=== PATIENT | female | born 1960 | race Caucasian/White ===

== ENCOUNTER 2018-02-27 21:42 | Emergency (ER) | payer OTHER, SELFPAY ==
[2018-02-27 21:53] VITALS: BP 107/67; PULSE 88; RESP 20; TEMP 36.1; O2SAT 98; BMI 35.7
--- NOTE | 2018-02-27 23:26 | ED_ITS ---
HPI - Nausea/Vomiting/Diarrhea General Chief complaint: Nausea/Vomiting/Diarrhea Stated complaint: vomiting Time Seen by Provider: 02/27/18 22:48 Source: patient Mode of arrival: ambulatory Limitations: no limitations History of Present Illness HPI Narrative: 57-year-old female, nonsmoker presents with a chief complaint nausea vomiting over the course of the day. She's had no fever, but admits to full body aches. She's had no change in bowel habits and denies dysuria, frequency, or hematuria. She denies headache, sorethroat, chest pain or SOB. She denies bad food, recent travel or antibiotics, but her had similar symptoms a few days ago MD complaint: nausea and vomiting Onset (ago): hour(s) Description of Vomiting: watery Description of Diarrhea: none Associated Abdominal Pain: Yes Location of pain: diffuse Severity: mild Quality: cramping Relieving factors: none Exacerbating factors: none Context: sick contacts Associated symptoms: myalgias Related Data Home Medications Medication Instructions Recorded Confirmed ASCORBIC ACID (VITAMIN C) 1,000 mg PO Q DAY #0 07/14/11 cholecalciferol (vitamin D3) 2,000 unit PO #0 cap 12/16/15 [Vitamin D3] cyanocobalamin (vitamin B-12) 2,500 #0 06/08/16 Previous Rx's Medication Instructions Recorded acyclovir 800 mg tablet 800 mg PO Q DAY #90 tab 07/03/17 simvastatin 10 mg tablet 10 mg PO HS #90 tab 09/25/17 zolpidem 10 mg tablet 10 mg PO BEDTIME PRN #30 tab 11/26/17 lisinopril 20 mg tablet 20 mg PO QDAY #90 tab 12/26/17 ondansetron 4 mg PO TID-QID PRN #10 tab 02/28/18 Allergies Allergy/AdvReac Type Severity Reaction Status Date / Time acetaminophen [From TYLOX] Allergy Severe itchy,rash,trouble Verified 02/27/18 21:53 breathing caffeine [From CAFERGOT] Allergy Severe paralyzed, Verified 02/27/18 21:53 numb from hips down codeine [CODEINE] Allergy Unknown hives Verified 02/27/18 21:53 hydrocodone [HYDROCODONE] Allergy Unknown hives Verified 02/27/18 21:53 prochlorperazine Allergy Unknown hallucinati Verified 02/27/18 21:53 [From COMPAZINE] ons sumatriptan [From IMITREX] Allergy Unknown rash and Verified 02/27/18 21:53 swelling ergotamine [ERGOTAMINE] AdvReac Unknown paralyzining Verified 02/27/18 21:53 feeling from the waste down oxycodone [From PERCOCET] AdvReac Unknown ulcers Verified 02/27/18 21:53 Percodan Allergy Severe Trouble Uncoded 02/27/18 21:53 Breathing, Rash Blue Dye Allergy Mild Hives Uncoded 02/27/18 21:53 dhe-45 Allergy Unknown rash at Uncoded 02/27/18 21:53 injection site aspirn AdvReac Unknown ulcers Uncoded 02/27/18 21:53 trazadone AdvReac Unknown hives Uncoded 02/27/18 21:53 Review of Systems Review of Systems All systems reviewed & are unremarkable except as noted in HPI and below Constitutional Reports chills, Denies fever(s), Denies lethargy and Denies weakness Eyes Denies change in vision, Denies eye discharge, Denies irritation and Denies loss of vision ENT Ears, Nose, Mouth, and Throat: Denies change in voice, Denies neck pain and Denies sore throat Cardiovascular Denies chest pain, Denies irregular heart rhythm, Denies lightheadedness, Denies palpitations, Denies dyspnea, Denies dyspnea on exertion and Denies orthopnea Respiratory Denies cough, Denies dyspnea, Denies dyspnea on exertion and Denies wheezing Gastrointestinal Gastrointestinal: Reports abdominal pain, Denies change in bowel habits, Denies diarrhea, Reports nausea and Reports vomiting Genitourinary Denies hematuria, Denies flank pain, Denies urinary incontinence and Denies urinary urgency Musculoskeletal Reports myalgias and Denies neck pain Integumentary/Breasts Denies pruritus, Denies erythema, Denies rash and Denies wounds Neurologic Denies confusion, Denies loss of vision and Denies weakness Psychiatric Denies anxiety, Denies confusion, Denies depression, Denies homicidal ideation and Denies suicidal ideation Endocrine Denies palpitations Hematologic/Lymphatic Denies easy bruising Allergic/Immunologic Denies wheezing PFSH Surgical History History of tonsillectomy Status post laparoscopic cholecystectomy Status post tubal ligation Family History Brother Age: 62 Hypertension Hyperlipidemia Father Hypertension Hyperlipidemia Social History Smoking Status: Never smoker Exam Narrative Exam Narrative: GENERAL: 57-year-old female in mild distress, clearly not feeling well, bundled in blankets HEAD: Atraumatic. Normocephalic. No temporal or scalp tenderness. EYES: Pupils equal round and reactive. Extraocular motions intact. No scleral icterus. No injection or drainage. ENT: Nose without bleeding, purulent drainage or septal hematoma. Throat without erythema, tonsillar hypertrophy or exudate. Uvula midline. Airway patent. NECK: Trachea midline. No JVD or lymphadenopathy. Supple, nontender, no meningeal signs. CARDIOVASCULAR: Regular rate and rhythm without murmurs, gallops, or rubs. RESPIRATORY: Clear to auscultation. Breath sounds equal bilaterally. No wheezes , rales, or rhonchi. GASTROINTESTINAL: Abdomen soft, non-tender, nondistended. Increased bowel tones No hepato-splenomegaly, or palpable masses. No guarding. EXTREMITIES: No clubbing, cyanosis, or edema. No joint tenderness, effusion, or edema noted. BACK: Nontender without deformity or crepitance. No flank tenderness. NEURO: AOx3. SKIN: No rash or erythema. Initial Vital Signs Initial Vital Signs: Vital Signs Temperature 97.0 F L 02/27/18 21:53 Pulse Rate 88 02/27/18 21:53 Respiratory Rate 20 02/27/18 21:53 Blood Pressure 107/67 02/27/18 21:53 Pulse Oximetry 98 02/27/18 21:53 Course Orders Ordered: ED Orders 02/27/18 23:30 Complete Blood Count AUTO DIFF Stat Comprehensive Metabolic Panel Stat 02/27/18 23:50 Influenza A and B by PCR Rapid Stat Sodium Chloride (Normal Saline 0.9%) 1,000 mls @ 1,000 mls/hr IV BOLUS ONE Stop: 02/28/18 02:03 Last Admin: 02/28/18 01:18 Dose: 1,000 mls/hr Discontinued Medications Sodium Chloride (Normal Saline 0.9%) 1,000 mls @ 1,000 mls/hr IV BOLUS ONE Stop: 02/28/18 00:13 Last Infusion: 02/28/18 01:20 Dose: 0 mls/hr Admin: 02/27/18 23:56 Dose: 1,000 mls/hr Ketorolac Tromethamine (Toradol) 15 mg IV NOW ONE Stop: 02/28/18 01:05 Last Admin: 02/28/18 01:18 Dose: 15 mg Ondansetron HCl (Zofran) 4 mg IV NOW ONE Stop: 02/27/18 23:15 Last Admin: 02/28/18 00:18 Dose: 4 mg Vital Signs - 8 hr 02/27/18 21:53 Temperature 97.0 F L Pulse Rate 88 Respiratory Rate 20 Blood Pressure 107/67 Pulse Oximetry 98 MDM - Nausea/Vomiting/Diarrhea Differential Diagnosis Likely traveler's diarrhea, food poisoning, gastroenteritis, drug-induced nausea and vomiting and dehydration Medical Records Attestation: I reviewed the patient's medical records. Lab Data Attestation: I reviewed the patient's lab results. Result diagrams: 02/27/18 23:30 02/27/18 23:30 Lab Results 02/27/18 02/27/18 02/27/18 Range/Units 23:30 23:30 23:50 WBC 6.9 (4.5-11.0) X10^3/uL RBC 4.23 (4.0-5.2) X10^6/uL Hgb 14.3 (12.0-16.0) g/dL Hct 40.3 (36-46) % MCV 95.3 (80-100) fL MCH 33.8 (26-34) PG MCHC 35.5 (30-36) % RDW 12.6 (11.6-14.8) % Plt Count 159 (150-400) X10^3/uL Neut % (Auto) 90.8 H (50-75) % Lymph % (Auto) 3.5 L (25-40) % [place] % (Auto) 4.4 (3-14) % Eos % (Auto) 1.1 L (2-4) % Baso % (Auto) 0.2 (0-2) % Neut # (Auto) 6200 (7294-0708) /uL Sodium 138 (137-145) mmol/L Potassium 3.8 (3.4-5.1) mmol/L Chloride 102 (98-107) mmol/L Carbon Dioxide 26 (22-32) mmol/L BUN 25 H (7-17) mg/dL Creatinine 0.80 (0.52-1.04) mg/dL Estimated GFR > 60.0 (>60) mL/min BUN/Creatinine Ratio 31.3 H (6-22) Glucose 156 H (70-100) mg/dL Calcium 8.9 (8.4-10.2) mg/dL Total Bilirubin 0.6 (0.2-1.3) mg/dL AST 57 H (14-36) IU/L ALT 69 H (9-52) IU/L Alkaline Phosphatase 91 (38-126) U/L Total Protein 7.4 (6.3-8.2) g/dL Albumin 4.0 (3.5-5.0) g/dL Globulin 3.4 (1.7-4.1) g/dL Albumin/Globulin Ratio 1.2 (1.0-2.8) Influenza A & B (PCR) Negative (Negative) Discharge Plan Departure Patient Disposition: Home Clinical Impression: Gastroenteritis Instructions: DI for Viral Gastroenteritis -- Adult Activity Restrictions/Additional Instructions: 1. Drink plenty of fluids with frequent small sips. 2. For the next 24 hours a clear liquid diet is advised. After that please employ a brat diet which would include bananas, rice, apples, toast. 3. Please take medications as directed. [facility] [place] 4. Please follow-up with your doctor in the next 1-2 days. Call the office for an appointment. 5. Please return to the emergency Department for any worsening or persistent symptoms, such as increasing pain or fever. Prescriptions: New ondansetron 4 mg tablet,disintegrating 4 mg PO TID-QID PRN (Reason: nausea and vomiting) Qty: 10 RF: 0 No Action ASCORBIC ACID (VITAMIN C) 1,000 mg PO Q DAY Qty: 0 RF: 0 cholecalciferol (vitamin D3) [Vitamin D3] 2,000 UNIT capsule 2,000 unit PO Qty: 0 RF: 0 cyanocobalamin (vitamin B-12) 1,000 MCG tablet extended release 2,500 Qty: 0 RF: 0 acyclovir 800 mg tablet 800 mg PO Q DAY Qty: 90 RF: 3 simvastatin 10 mg tablet 10 mg PO HS Qty: 90 RF: 1 zolpidem 10 mg tablet 10 mg PO BEDTIME PRN (Reason: insomnia) Qty: 30 RF: 2 lisinopril 20 mg tablet 20 mg PO QDAY Qty: 90 RF: 1 Referrals: Wu Banks MD [Primary Care Provider] -
[2018-02-27 23:43] LABS: Add Manual Diff / Slide Review NO; Basophils Percent Auto 0.2 % (0-2); Eosinophils Percent Auto 1.1 % (2-4); Hematocrit 40.3 % (36-46); Hemoglobin 14.3 g/dL (12.0-16.0); Lymphocytes Percent Auto 3.5 % (25-40); Mean Corpuscular HGB Conc 35.5 % (30-36); Mean Corpuscular Hemoglobin 33.8 PG (26-34); Mean Corpuscular Volume 95.3 fL (80-100); Monocytes Percent Auto 4.4 % (3-14); Neutrophils Absolute Auto 6200 /uL (1500-7000); Neutrophils Percent Auto 90.8 % (50-75); Platelet Count 159 X10^3/uL (150-400); Red Blood Cell Count 4.23 X10^6/uL (4.0-5.2); Red Cell Distribution Width 12.6 % (11.6-14.8); White Blood Cell Count 6.9 X10^3/uL (4.5-11.0)
[2018-02-27 23:48] LABS: Alanine Aminotransferase 69 IU/L (9-52); Albumin Globulin Ratio 1.2 (1.0-2.8); Alkaline Phosphatase 91 U/L (38-126); Aspartate Aminotransferase 57 IU/L (14-36); BUN Creatinine Ratio 31.3 (6-22); Bilirubin Total 0.6 mg/dL (0.2-1.3); Blood Urea Nitrogen 25 mg/dL (7-17); Calcium 8.9 mg/dL (8.4-10.2); Carbon Dioxide 26 mmol/L (22-32); Chloride 102 mmol/L (98-107); Estimated Glomerular Filt Rate > 60.0 mL/min (>60); Globulin 3.4 g/dL (1.7-4.1); Glucose 156 mg/dL (70-100); HEMOLYSIS 16 (0-50); Potassium 3.8 mmol/L (3.4-5.1); Sodium 138 mmol/L (137-145); Total Protein 7.4 g/dL (6.3-8.2)
[2018-02-27] MEDS: SODIUM CHLORIDE 0.9% 1,000 ML 1000 ML IV (23:56)
[2018-02-28 00:11] LABS: Influenza A and B by PCR Rapid Negative (Negative)
[2018-02-28] MEDS: ONDANSETRON 4 MG/2 ML INJ IV (00:18)
[2018-02-28] MEDS: SODIUM CHLORIDE 0.9% 1,000 ML 1000 ML IV (01:18)
[2018-02-28] MEDS: KETOROLAC 60 MG/2 ML VIAL 15 MG IV (01:18)
[2018-02-28 01:53] VITALS: BP 104/70; PULSE 84; RESP 18; O2SAT 98
== END 2018-02-28 01:54 | disposition home or self-care (01) ==
PROVIDERS: Emergency Provider Emergency Medicine; PCP Family Medicine
DX: K52.9 Noninfective gastroenteritis and colitis, unspecified (principal)
CPT/HCPCS: 36415; 36591; 80053; 85025; 87400; 96361; 96374; 96375; 99283; 99284; J1885; J2405

== ENCOUNTER → 2018-04-27 09:56 | Outpatient (CLI) | payer OTHER, SELFPAY ==
[2018-04-27 10:24] LABS: BUN Creatinine Ratio 22.9 (6-22); Blood Urea Nitrogen 16 mg/dL (7-17); C-Reactive Protein Quant < 0.5 mg/dL (<1.0); Calcium 9.2 mg/dL (8.4-10.2); Carbon Dioxide 27 mmol/L (22-32); Chloride 100 mmol/L (98-107); Creatine Kinase 107 U/L (30-135); Estimated Glomerular Filt Rate > 60.0 mL/min (>60); Glucose 128 mg/dL (70-100); HEMOLYSIS < 15 (0-50); Potassium 4.3 mmol/L (3.4-5.1); Sodium 137 mmol/L (137-145)
[2018-04-27 11:07] LABS: TSH w/ Reflex to FT4 2.42 uIU/mL (0.47-4.68)
== END ==
PROVIDERS: Visit Provider Student in an Organized Health Care Education/Training Program
DX: M62.838 Other muscle spasm (principal); E03.9 Hypothyroidism, unspecified; E66.9 Obesity, unspecified; I10 Essential (primary) hypertension; R73.03 Prediabetes; E55.9 Vitamin D deficiency, unspecified
CPT/HCPCS: 36415; 80048; 82306; 82550; 83036; 83735; 84443; 86140

== ENCOUNTER 2018-10-23 03:48 | Emergency (ER) | payer OTHER, SELFPAY ==
[2018-10-23] VITALS (7 sets, daily range): BP systolic 117–154; BP diastolic 61–94; PULSE 67–84; RESP 13–20; TEMP 36.5; O2SAT 97–100; BMI 36.6
--- NOTE | 2018-10-23 03:49 | DI.RAD.S_ITS ---
PROCEDURE: XR CHEST 1V INDICATIONS: Chest pain TECHNIQUE: One view of the chest was acquired. COMPARISON: None. FINDINGS: Surgical changes and devices: None. Lungs and pleura: Lungs are clear. No pleural effusions or pneumothorax. Mediastinum: Mediastinal contours appear normal. Heart size is normal. Bones and chest wall: No suspicious bony lesions. Overlying soft tissues appear unremarkable. IMPRESSION: Chest without acute cardiopulmonary abnormalities. No significant discrepancy with preliminary assessment/report by the emergency department staff. Dictated by: Chapo Chapman M.D. on 10/23/2018 at 9:38 Approved by: Chapo Chapman M.D. on 10/23/2018 at 9:39
--- NOTE | 2018-10-23 03:50 | ED_ITS ---
HPI - General Adult General Chief complaint: Chest Pain Stated complaint: Chest pain Time Seen by Provider: 10/23/18 03:48 Source: patient and EMS Mode of arrival: EMS Limitations: no limitations History of Present Illness HPI narrative: Patient is a 58-year-old female here for evaluation of left-sided chest pain. Patient stated that it started approximately 1 point hours prior to arrival here in the emergency department. States that is on the left side of her chest under her left arm. Potentially is worse with palpation. Not worse with movement. She states it did wake her from her sleep. Has never had a nything like this before. No fevers. No coughing. Has not tried anything for the symptoms prior to arrival Related Data Home Medications Medication Instructions Recorded Confirmed ASCORBIC ACID (VITAMIN C) 1,000 mg PO Q DAY #0 07/14/11 cholecalciferol (vitamin D3) 2,000 unit PO #0 cap 12/16/15 [Vitamin D3] cyanocobalamin (vitamin B-12) 2,500 #0 06/08/16 Previous Rx's Medication Instructions Recorded simvastatin 10 mg tablet 10 mg PO HS #90 tab 04/25/18 zolpidem 10 mg tablet 10 mg PO BEDTIME PRN #30 tab 04/25/18 lisinopril 20 mg tablet 20 mg PO QDAY #90 tab 07/12/18 acyclovir 800 mg tablet 800 mg PO DAILY #90 tab 07/17/18 Allergies Allergy/AdvReac Type Severity Reaction Status Date / Time acetaminophen [From TYLOX] Allergy Severe itchy,rash,trouble Verified 04/25/18 10:59 breathing caffeine [From CAFERGOT] Allergy Severe paralyzed, Verified 04/25/18 10:59 numb from hips down codeine [CODEINE] Allergy Unknown hives Verified 04/25/18 10:59 hydrocodone [HYDROCODONE] Allergy Unknown hives Verified 04/25/18 10:59 prochlorperazine Allergy Unknown hallucinati Verified 04/25/18 10:59 [From COMPAZINE] ons sumatriptan [From IMITREX] Allergy Unknown rash and Verified 04/25/18 10:59 swelling ergotamine [ERGOTAMINE] AdvReac Unknown paralyzining Verified 04/25/18 10:59 feeling from the waste down oxycodone [From PERCOCET] AdvReac Unknown ulcers Verified 04/25/18 10:59 Percodan Allergy Severe Trouble Uncoded 02/27/18 21:53 Breathing, Rash Blue Dye Allergy Mild Hives Uncoded 02/27/18 21:53 dhe-45 Allergy Unknown rash at Uncoded 02/27/18 21:53 injection site aspirn AdvReac Unknown ulcers Uncoded 02/27/18 21:53 trazadone AdvReac Unknown hives Uncoded 02/27/18 21:53 Review of Systems Constitutional Denies fever(s) and Denies headache(s) ENT Ears, Nose, Mouth, and Throat: Denies headache(s) Cardiovascular Reports chest pain, Denies edema, Denies palpitations and Denies dyspnea Respiratory Denies cough and Denies dyspnea Gastrointestinal Gastrointestinal: Denies abdominal pain, Denies nausea and Denies vomiting Musculoskeletal Denies myalgias and Denies arthralgias Integumentary/Breasts Denies rash Neurologic Denies confusion and Denies headache(s) Psychiatric Denies confusion Endocrine Denies palpitations Hematologic/Lymphatic Denies easy bleeding and Denies easy bruising COUNTS INCLUDE 234 BEDS AT THE [facility] Medical History Carpal tunnel syndrome (Chronic ~2004) Fibroids (Chronic ~2006) Hypertension (Chronic ~1999) Osteoarthritis (Chronic ~2006) Shoulder pain (Chronic ~2012) Skin rash (Chronic ~2005) Chicken pox (Resolved ~1963) Herpes (Resolved ~1997) Migraines (Resolved) Ovarian cyst (Resolved ~2006) Surgical History (Updated 04/24/18 @ 21:25 by Kristin Alejandro) Anesthesia (Resolved) History of liver biopsy (Resolved ~2001) History of release of tendon (Resolved ~1989) History of surgery (Resolved ~2003) History of tonsillectomy (~1963) Status post laparoscopic cholecystectomy (~1986) Status post tubal ligation (~2006) Family History Brother Age: 63 Hypertension Hyperlipidemia Father Hypertension Hyperlipidemia Brother Cancer Brother Cancer Mother No problems noted. Social History Smoking Status: Never smoker Family History Brother Age: 63 Hypertension Hyperlipidemia Father Hypertension Hyperlipidemia Brother Cancer Brother Cancer Mother No problems noted. Social History Smoking Status: Never smoker Exam Initial Vital Signs Initial Vital Signs: Vital Signs Temperature 97.7 F 10/23/18 03:45 Pulse Rate 74 10/23/18 03:45 Respiratory Rate 20 10/23/18 03:45 Blood Pressure 152/90 H 10/23/18 03:45 Pulse Oximetry 100 10/23/18 03:45 Const General: cooperative, well developed, well groomed and No acute distress Orientation: alert, awake and oriented x3 HENMT Head: normal to inspection and normocephalic Chest Other: Somewhat reproducible symptoms left-sided chest wall mid axillary line Resp Effort & Inspection: normal respiratory effort Auscultation: clear to auscultation bilaterally Cardio Rate: regular rate Rhythm: regular rhythm Pulses: radial pulses present GI Inspection: non-distended Palpation: soft Skin Lesions: no lesions Rashes: no rashes Neuro General: alert and awake Cognition: normal cognition Speech: speech normal Extrem General: normal to inspection and capillary refill normal Psych Appearance: grossly normal and well kempt Scores GCS [place] coma scale eye opening: Spontaneous [place] coma scale verbal response: Orientated [place] coma scale motor response: Obey commands [place] coma scale total score: 15 HEART Score Heart Score history: Slightly Suspicious Heart Score EKG: Normal Heart Score Age: 45-64 years old Heart Score risk factors: 1-2 risk factors Heart Score troponin: < or = to normal limit Heart Score Total: 2 Course Orders Ordered: ED Orders 10/23/18 03:49 XR chest 1V Stat EKG-12 Lead Stat 10/23/18 03:55 Complete Blood Count AUTO DIFF Stat Comprehensive Metabolic Panel Stat Lipase Stat Partial Thromboplastin Time Stat Prothrombin Time INR Stat Troponin I Stat 10/23/18 06:23 Troponin I Stat Nitroglycerin (Nitrostat) 0.4 mg SL [id number] PRN PRN Reason: Chest Pain Last Admin: 10/23/18 05:07 Dose: 0.4 mg Admin: 10/23/18 04:53 Dose: 0.4 mg Discontinued Medications Ibuprofen (Advil) 800 mg PO NOW ONE Stop: 10/23/18 05:07 Last Admin: 10/23/18 05:09 Dose: 800 mg Lorazepam (Ativan) 1 mg IV NOW ONE Stop: 10/23/18 03:51 Last Admin: 10/23/18 04:55 Dose: Not Given Morphine Sulfate (Morphine) 4 mg IV NOW ONE Stop: 10/23/18 06:03 Last Admin: 10/23/18 06:07 Dose: 4 mg Vital Signs - 8 hr 10/23/18 03:45 10/23/18 03:54 10/23/18 04:53 Temperature 97.7 F 97.7 F Pulse Rate 74 74 72 Respiratory Rate 20 20 Blood Pressure 152/90 H 128/64 Blood Pressure [Left Arm] 152/90 H Pulse Oximetry 100 100 10/23/18 05:07 10/23/18 05:58 Temperature Pulse Rate 84 67 Respiratory Rate 13 Blood Pressure 121/67 Blood Pressure [Left Arm] 154/94 H Pulse Oximetry 100 Medical Decision Making Lab Data Lab results reviewed: Yes I reviewed the patient's lab results. Result diagrams: 10/23/18 03:55 10/23/18 03:55 Lab Results 10/23/18 10/23/18 10/23/18 Range/Units 03:55 03:55 03:55 WBC 4.8 (4.5-11.0) X10^3/uL RBC 3.98 L (4.0-5.2) X10^6/uL Hgb 13.4 (12.0-16.0) g/dL Hct 38.0 (36-46) % MCV 95.6 (80-100) fL MCH 33.8 (26-34) PG MCHC 35.4 (30-36) % RDW 12.8 (11.6-14.8) % Plt Count 123 L (150-400) X10^3/uL Neut % (Auto) 43.2 L (50-75) % Lymph % (Auto) 39.7 (25-40) % [place] % (Auto) 10.9 (3-14) % Eos % (Auto) 5.3 H (2-4) % Baso % (Auto) 0.9 (0-2) % Neut # (Auto) 2100 (4991-5151) /uL Lymph # (Auto) 1900 (1642-3334) /uL [place] # (Auto) 500 (0-900) /uL Eos # (Auto) 300 (0-450) /uL Baso # (Auto) 0 (0-100) /uL PT 12.3 (10.1-12.7) SECONDS INR 1.1 (0.9-1.3) APTT 34 (26.4-36.2) SECONDS Sodium 136 L (137-145) mmol/L Potassium 4.0 (3.4-5.1) mmol/L Chloride 102 (98-107) mmol/L Carbon Dioxide 23 (22-32) mmol/L BUN 18 H (7-17) mg/dL Creatinine 0.60 (0.52-1.04) mg/dL Estimated GFR > 60.0 (>60) mL/min BUN/Creatinine Ratio 30.0 H (6-22) Glucose 178 H (70-100) mg/dL Calcium 9.3 (8.4-10.2) mg/dL Total Bilirubin 0.5 (0.2-1.3) mg/dL AST 57 H (14-36) IU/L ALT 86 H (9-52) IU/L Alkaline Phosphatase 179 H (38-126) U/L Troponin I < 0.012 (0.01-0.034) ng/mL Total Protein 7.7 (6.3-8.2) g/dL Albumin 4.0 (3.5-5.0) g/dL Globulin 3.7 (1.7-4.1) g/dL Albumin/Globulin Ratio 1.1 (1.0-2.8) Lipase 100 (23-300) U/L // Range/Units 06:23 WBC (4.5-11.0) X10^3/uL RBC (4.0-5.2) X10^6/uL Hgb (12.0-16.0) g/dL Hct (36-46) % MCV (80-100) fL MCH (26-34) PG MCHC (30-36) % RDW (11.6-14.8) % Plt Count (150-400) X10^3/uL Neut % (Auto) (50-75) % Lymph % (Auto) (25-40) % [place] % (Auto) (3-14) % Eos % (Auto) (2-4) % Baso % (Auto) (0-2) % Neut # (Auto) (4261-4426) /uL Lymph # (Auto) (9469-1684) /uL [place] # (Auto) (0-900) /uL Eos # (Auto) (0-450) /uL Baso # (Auto) (0-100) /uL PT (10.1-12.7) SECONDS INR (0.9-1.3) APTT (26.4-36.2) SECONDS Sodium (137-145) mmol/L Potassium (3.4-5.1) mmol/L Chloride (98-107) mmol/L Carbon Dioxide (22-32) mmol/L BUN (7-17) mg/dL Creatinine (0.52-1.04) mg/dL Estimated GFR (>60) mL/min BUN/Creatinine Ratio (6-22) Glucose (70-100) mg/dL Calcium (8.4-10.2) mg/dL Total Bilirubin (0.2-1.3) mg/dL AST (14-36) IU/L ALT (9-52) IU/L Alkaline Phosphatase (38-126) U/L Troponin I < 0.012 (0.01-0.034) ng/mL Total Protein (6.3-8.2) g/dL Albumin (3.5-5.0) g/dL Globulin (1.7-4.1) g/dL Albumin/Globulin Ratio (1.0-2.8) Lipase (23-300) U/L Imaging Data Chest x-ray: Attestation: I personally reviewed and interpreted this imaging study as follows: My impression: No pneumonia, normal size heart, no pneumothorax ECG Data Attestation: I personally reviewed and interpreted this ECG as follows: Prior ECG tracings: not available for review Interpretation: Sinus rhythm Ventricular rate is 71 Normal axis Normal QRS Normal QTC No ST T wave changes MDM Narrative Medical decision making narrative: Heart score 2. EKG is unremarkable. Chest x- ray is unremarkable. Low suspicion for ACS. Low suspicion for PE. Patient does think was anxiety. Could also be intercostal muscle strain. We discussed the fact that we do not have an exact etiology of her symptoms. Patient expressed understanding of this. She was given return precautions and follow-up instructions. She expressed understanding and agreement with plan. Discharge Plan Departure Patient Disposition: Home Clinical Impression: Atypical chest pain Instructions: DI for Atypical Chest Pain Activity Restrictions/Additional Instructions: Continue all of your medications as directed. Contact your primary provider for follow-up and to discuss the stress test. Return to the emergency department for any new or worsening symptoms Prescriptions: No Action ASCORBIC ACID (VITAMIN C) 1,000 mg PO Q DAY Qty: 0 RF: 0 cholecalciferol (vitamin D3) [Vitamin D3] 2,000 UNIT capsule 2,000 unit PO Qty: 0 RF: 0 cyanocobalamin (vitamin B-12) 1,000 MCG tablet extended release 2,500 Qty: 0 RF: 0 lisinopril 20 mg tablet 20 mg PO QDAY Qty: 90 RF: 3 acyclovir 800 mg tablet 800 mg PO DAILY Qty: 90 RF: 3 zolpidem 10 mg tablet 10 mg PO BEDTIME PRN (Reason: insomnia) Qty: 30 RF: 5 simvastatin 10 mg tablet 10 mg PO HS Qty: 90 RF: 0
[2018-10-23 04:09] LABS: Add Manual Diff / Slide Review NO; Basophils Absolute Auto 0 /uL (0-100); Basophils Percent Auto 0.9 % (0-2); Eosinophils Absolute Auto 300 /uL (0-450); Eosinophils Percent Auto 5.3 % (2-4); Hemoglobin 13.4 g/dL (12.0-16.0); Lymphocytes Absolute Auto 1900 /uL (1100-4500); Lymphocytes Percent Auto 39.7 % (25-40); Mean Corpuscular HGB Conc 35.4 % (30-36); Mean Corpuscular Hemoglobin 33.8 PG (26-34); Mean Corpuscular Volume 95.6 fL (80-100); Monocytes Absolute Auto 500 /uL (0-900); Monocytes Percent Auto 10.9 % (3-14); Neutrophils Absolute Auto 2100 /uL (1500-7000); Neutrophils Percent Auto 43.2 % (50-75); Platelet Count 123 X10^3/uL (150-400); Red Blood Cell Count 3.98 X10^6/uL (4.0-5.2); Red Cell Distribution Width 12.8 % (11.6-14.8); White Blood Cell Count 4.8 X10^3/uL (4.5-11.0)
[2018-10-23 04:15] LABS: INR 1.1 (0.9-1.3); Prothrombin Time 12.3 SECONDS (10.1-12.7)
[2018-10-23 04:18] LABS: PTT Partial Thromboplastin Tim 34 SECONDS (26.4-36.2)
[2018-10-23 04:19] LABS: Alanine Aminotransferase 86 IU/L (9-52); Albumin Globulin Ratio 1.1 (1.0-2.8); Alkaline Phosphatase 179 U/L (38-126); Aspartate Aminotransferase 57 IU/L (14-36); Bilirubin Total 0.5 mg/dL (0.2-1.3); Blood Urea Nitrogen 18 mg/dL (7-17); Calcium 9.3 mg/dL (8.4-10.2); Carbon Dioxide 23 mmol/L (22-32); Chloride 102 mmol/L (98-107); Estimated Glomerular Filt Rate > 60.0 mL/min (>60); Globulin 3.7 g/dL (1.7-4.1); Glucose 178 mg/dL (70-100); HEMOLYSIS < 15 (0-50); Lipase 100 U/L (23-300); Sodium 136 mmol/L (137-145); Total Protein 7.7 g/dL (6.3-8.2)
[2018-10-23 04:31] LABS: Troponin I < 0.012 ng/mL (0.01-0.034)
[2018-10-23] MEDS: NITROGLYCERIN 0.4 MG SL TAB SL ×2 (04:53→05:07)
[2018-10-23] MEDS: IBUPROFEN 400 MG TABLET 800 MG PO (05:09)
[2018-10-23] MEDS: MORPHINE 4 MG/ML INJ IV (06:07)
[2018-10-23 06:49] LABS: Troponin I < 0.012 ng/mL (0.01-0.034)
== END 2018-10-23 07:10 | disposition home or self-care (01) ==
PROVIDERS: Emergency Provider Emergency Medicine
DX: R07.89 Other chest pain (principal)
CPT/HCPCS: 36415; 36591; 71045; 80053; 83690; 84484; 85025; 85610; 85730; 93005; 96374; 99283; 99285; J2270

== ENCOUNTER 2019-01-03 22:12 | Emergency (ER) | payer OTHER, SELFPAY ==
[2019-01-03 22:22] VITALS: BP 166/131; PULSE 116; RESP 17; TEMP 36.7; O2SAT 97; BMI 37.4
--- NOTE | 2019-01-03 22:35 | ED.EXTPRO ---
HPI - Extremity Problem General Chief complaint: Extremity Problem,Nontraumatic Stated complaint: HORRIBLE CRAMPS ALL OVER HER BODY Time Seen by Provider: 01/03/19 22:28 Source: patient Mode of arrival: Wheelchair Limitations: no limitations History of Present Illness HPI Narrative: 58-year-old female here for evaluation of bilateral lower leg cramps. She has had these in the past. States she has talked with her primary doctor in the past. Has had ?labs ?drawn in the past which she states was come back normal. There has been no discussion about her seeing any specialist about the symptoms. States that earlier today she started having cramping especially her left lower extremity but also is having and a right. Has tried stretching and walking at home without any improvement. Does take a multivitamin daily. Drinks water on a daily basis. Related Data Home Medications Medication Instructions Recorded Confirmed ASCORBIC ACID (VITAMIN C) 1,000 mg PO Q DAY #0 07/14/11 12/11/18 cholecalciferol (vitamin D3) 2,000 unit PO #0 cap 12/16/15 12/11/18 [Vitamin D3] cyanocobalamin (vitamin B-12) 2,500 #0 06/08/16 12/11/18 Previous Rx's Medication Instructions Recorded lisinopril 20 mg tablet 20 mg PO QDAY #90 tab 07/12/18 acyclovir 800 mg tablet 800 mg PO DAILY #90 tab 07/17/18 zolpidem 10 mg tablet 10 mg PO BEDTIME PRN #30 tab 11/13/18 verapamil 120 mg tablet,extended 120 mg PO QPM #30 tab 12/11/18 release cyclobenzaprine 10 mg PO TID PRN #14 tab 01/04/19 Allergies Allergy/AdvReac Type Severity Reaction Status Date / Time acetaminophen [From TYLOX] Allergy Severe itchy,rash,trouble Verified 01/03/19 22:22 breathing caffeine [From CAFERGOT] Allergy Severe paralyzed, Verified 01/03/19 22:22 numb from hips down codeine [CODEINE] Allergy Unknown hives Verified 01/03/19 22:22 hydrocodone [HYDROCODONE] Allergy Unknown hives Verified 01/03/19 22:22 prochlorperazine Allergy Unknown hallucinati Verified 01/03/19 22:22 [From COMPAZINE] ons sumatriptan [From IMITREX] Allergy Unknown rash and Verified 01/03/19 22:22 swelling ergotamine [ERGOTAMINE] AdvReac Unknown paralyzining Verified 01/03/19 22:22 feeling from the waste down oxycodone [From PERCOCET] AdvReac Unknown ulcers Verified 01/03/19 22:22 Percodan Allergy Severe Trouble Uncoded 12/11/18 15:41 Breathing, Rash Blue Dye Allergy Mild Hives Uncoded 12/11/18 15:41 [id number] Allergy Unknown rash at Uncoded 12/11/18 15:41 injection site aspirn AdvReac Unknown ulcers Uncoded 12/11/18 15:41 trazadone AdvReac Unknown hives Uncoded 12/11/18 15:41 Review of Systems Constitutional Constitutional: Denies fever(s) ENT Ears, Nose, Mouth, and Throat: Denies disequilibrium Cardiovascular Cardiovascular: Denies chest pain and Denies dyspnea Respiratory Respiratory: Denies dyspnea Gastrointestinal Gastrointestinal: Denies abdominal pain Musculoskeletal Musculoskeletal: Reports myalgias, Denies arthralgias and Reports muscle cramps Comments: Muscle cramps Integumentary/Breasts Skin/Breast: Denies rash Neurologic Neurologic: Denies disequilibrium Hematologic/Lymphatic Hematologic/Lymphatic: Denies easy bleeding and Denies easy bruising Patient History Medical History Carpal tunnel syndrome (Chronic ~2004) Chicken pox (Resolved ~1963) Fibroids (Chronic ~2006) Herpes (Resolved ~1997) Hypertension (Chronic ~1999) Migraines (Resolved) Osteoarthritis (Chronic ~2006) Ovarian cyst (Resolved ~2006) Shoulder pain (Chronic ~2012) Skin rash (Chronic ~2005) Surgical History Anesthesia (Resolved) History of liver biopsy (Resolved ~2001) History of release of tendon (Resolved ~1989) History of surgery (Resolved ~2003) History of tonsillectomy (~1963) Status post laparoscopic cholecystectomy (~1986) Status post tubal ligation (~2006) Family History Brother Age: 63 Hypertension Hyperlipidemia Father Hypertension Hyperlipidemia Brother Cancer Brother Cancer Mother No problems noted. Social History (Reviewed 01/04/19 @ 01:09 by BARNEY Mascorro Smoking Status: Never smoker alcohol intake frequency: holidays/special occasions only Substance Use Type: does not use Exam Initial Vital Signs Initial Vital Signs: Vital Signs Temperature 98.1 F 01/03/19 22:22 Pulse Rate 116 H 01/03/19 22:22 Respiratory Rate 17 01/03/19 22:22 Blood Pressure 166/131 H 01/03/19 22:22 Pulse Oximetry 97 01/03/19 22:22 Const General: cooperative and well developed Orientation: alert and awake Resp Effort & Inspection: normal respiratory effort Cardio Rate: regular rate Skin Lesions: no lesions Rashes: no rashes Neuro General: alert and awake Cognition: normal cognition Speech: speech normal Extrem Other: Patient with would does feel like a muscle cramp on her left abductors. Psych Appearance: grossly normal and well kempt Course Orders Ordered: ED Orders 01/03/19 23:48 Complete Blood Count MAN DIFF Stat Comprehensive Metabolic Panel Stat Magnesium Stat Phosphorous Stat Discontinued Medications Diazepam (Valium) 10 mg PO NOW ONE Stop: 01/03/19 22:36 Last Admin: 01/03/19 23:03 Dose: 10 mg Documented by: ANDREWS Sodium Chloride (Normal Saline 0.9%) 1,000 mls @ 1,000 mls/hr IV BOLUS ONE Stop: 01/04/19 00:30 Last Infusion: 01/04/19 01:07 Dose: 1,000 mls/hr Documented by: Admin: 01/03/19 23:48 Dose: 1,000 mls/hr Documented by: ANDREWS Morphine Sulfate (Morphine) 4 mg IV NOW ONE Stop: 01/03/19 23:34 Last Admin: 01/03/19 23:47 Dose: 4 mg Documented by: ANDREWS Vital Signs Vital signs: Vital Signs - 8 hr 01/03/19 22:22 01/04/19 00:09 Temperature 98.1 F Pulse Rate 116 H 94 H Respiratory Rate 17 Blood Pressure 166/131 H Blood Pressure [Right Arm] 157/85 H Pulse Oximetry 97 MDM - Extremity (Nontraumatic) Lab Data Attestation: I reviewed the patient's lab results. Lab results narrative: Result diagrams: 01/03/19 23:48 01/03/19 23:48 Labs: Lab Results 01/03/19 01/03/19 Range/Units 23:48 23:48 WBC 5.9 (4.5-11.0) X10^3/uL RBC 3.97 L (4.0-5.2) X10^6/uL Hgb 13.5 (12.0-16.0) g/dL Hct 38.2 (36-46) % MCV 96.2 (80-100) fL MCH 33.9 (26-34) PG MCHC 35.2 (30-36) % RDW 12.7 (11.6-14.8) % Plt Count 126 L (150-400) X10^3/uL Neut % (Auto) Cancelled Lymph % (Auto) Cancelled [place] % (Auto) Cancelled Eos % (Auto) Cancelled Baso % (Auto) Cancelled Neut # (Auto) Cancelled Lymph # (Auto) Cancelled [place] # (Auto) Cancelled Eos # (Auto) Cancelled Baso # (Auto) Cancelled Total Counted 100 Seg Neutrophils % 59.0 (38-70) % Lymphocytes % (Manual) 25.0 (25-45) % Monocytes % (Manual) 13.0 H (2-11) % Eosinophils % (Manual) 2.0 (2-4) % Basophils % (Manual) 1.0 (0-1) % Neutrophils # (Manual) 3481 (6172-4138) /uL RBC Morphology Normal morphology Sodium 130 L (137-145) mmol/L Potassium 4.1 (3.4-5.1) mmol/L Chloride 98 (98-107) mmol/L Carbon Dioxide 22 (22-32) mmol/L BUN 15 (7-17) mg/dL Creatinine 0.60 (0.52-1.04) mg/dL Estimated GFR > 60.0 (>60) mL/min BUN/Creatinine Ratio 25.0 H (6-22) Glucose 270 H (70-100) mg/dL Calcium 9.2 (8.4-10.2) mg/dL Phosphorus 2.7 (2.5-4.5) mg/dL Magnesium 1.5 L (1.6-2.3) mg/dL Total Bilirubin 0.6 (0.2-1.3) mg/dL AST 97 H (14-36) IU/L ALT 87 H (<35) IU/L Alkaline Phosphatase 231 H (38-126) U/L Total Protein 7.8 (6.3-8.2) g/dL Albumin 4.0 (3.5-5.0) g/dL Globulin 3.8 (1.7-4.1) g/dL Albumin/Globulin Ratio 1.1 (1.0-2.8) MDM Narrative Medical decision making narrative: Patient's labs are relatively unremarkable. She was given fluids and also symptom treatment here in the ER which did improve her symptoms somewhat. It does feel like she is having muscle spasms. They seem to be in the lower extremities and she states that they seem to be more so at night. Feel that no further workup was needed here in the emergency department. I do feel that we could treat her symptoms with some muscle relaxers. She is going to continue to drink plenty of fluids and take her multivitamin. I did inform her that she should talk with her primary provider. She expressed understanding and agreement with plan. Discharge Plan Departure Patient Disposition: Home Clinical Impression: Cramp in muscle Instructions: Nocturnal Leg Cramps Activity Restrictions/Additional Instructions: Recommend you continue with all of your medications. We should increase your fluid intake and take your multi vitamin like we discussed. Contact your primary doctor to discuss any indications for referral to see specialist in this area. Return to the emergency department for any worsening symptoms Prescriptions: New cyclobenzaprine 10 mg tablet 10 mg PO TID PRN (Reason: muscle spasm) Qty: 14 RF: 0 No Action ASCORBIC ACID (VITAMIN C) 1,000 mg PO Q DAY Qty: 0 RF: 0 cholecalciferol (vitamin D3) [Vitamin D3] 2,000 UNIT capsule 2,000 unit PO Qty: 0 RF: 0 cyanocobalamin (vitamin B-12) 1,000 MCG tablet extended release 2,500 Qty: 0 RF: 0 lisinopril 20 mg tablet 20 mg PO QDAY Qty: 90 RF: 3 acyclovir 800 mg tablet 800 mg PO DAILY Qty: 90 RF: 3 zolpidem 10 mg tablet 10 mg PO BEDTIME PRN (Reason: insomnia) Qty: 30 RF: 5 verapamil 120 mg tablet extended release 120 mg PO QPM Qty: 30 RF: 0 Referrals: Trevor Bellamy MD [Primary Care Provider] -
[2019-01-03] MEDS: diazePAM 5 MG TABLET 10 MG PO (23:03)
--- NOTE | 2019-01-03 23:07 | PC.NURSE ---
Patient reports having cramps in legs before. Has been seen by PCP for cramps with no exclamation of cause of cramps in legs. States has been able to walk out cramps in the past but has been unable to relieve that pain at this time. Main area that is cramping in right calf into thigh. states feels it up to groin and into left hip.
[2019-01-03] MEDS: MORPHINE 4 MG/ML INJ IV (23:47)
[2019-01-03] MEDS: SODIUM CHLORIDE 0.9% 1,000 ML 1000 ML IV (23:48)
[2019-01-04] LABS: Hematocrit 38.2 % (36-46); Hemoglobin 13.5 g/dL (12.0-16.0); Mean Corpuscular HGB Conc 35.2 % (30-36); Mean Corpuscular Hemoglobin 33.9 PG (26-34); Mean Corpuscular Volume 96.2 fL (80-100); Platelet Count 126 X10^3/uL (150-400); Red Blood Cell Count 3.97 X10^6/uL (4.0-5.2); Red Cell Distribution Width 12.7 % (11.6-14.8); White Blood Cell Count 5.9 X10^3/uL (4.5-11.0)
[2019-01-04 00:09] VITALS: BP 157/85; PULSE 94
[2019-01-04 00:19] LABS: Magnesium 1.5 mg/dL (1.6-2.3); Phosphorous 2.7 mg/dL (2.5-4.5)
[2019-01-04 00:41] LABS: Alanine Aminotransferase 87 IU/L (<35); Albumin Globulin Ratio 1.1 (1.0-2.8); Alkaline Phosphatase 231 U/L (38-126); Aspartate Aminotransferase 97 IU/L (14-36); Bilirubin Total 0.6 mg/dL (0.2-1.3); Blood Urea Nitrogen 15 mg/dL (7-17); Calcium 9.2 mg/dL (8.4-10.2); Carbon Dioxide 22 mmol/L (22-32); Chloride 98 mmol/L (98-107); Estimated Glomerular Filt Rate > 60.0 mL/min (>60); Globulin 3.8 g/dL (1.7-4.1); Glucose 270 mg/dL (70-100); HEMOLYSIS 33 (0-50); Neutrophils Absolute Manual 3481 /uL (3000-5900); Potassium 4.1 mmol/L (3.4-5.1); Sodium 130 mmol/L (137-145); Total Cells Counted 100; Total Protein 7.8 g/dL (6.3-8.2)
[2019-01-04 00:42] LABS: RBC Morphology Normal Morphology
[2019-01-04] MEDS: CYCLOBENZAPRINE 10 MG PREPACK 1 BOTTLE MISC (01:17)
[2019-01-04 01:18] VITALS: BP 146/92; PULSE 97; O2SAT 96
== END 2019-01-04 01:19 | disposition home or self-care (01) ==
PROVIDERS: Emergency Provider Emergency Medicine; PCP Student in an Organized Health Care Education/Training Program
DX: R25.2 Cramp and spasm (principal); R79.89 Other specified abnormal findings of blood chemistry
CPT/HCPCS: 36415; 80053; 83735; 84100; 85025; 96361; 96374; 99283; 99284; J2270

== ENCOUNTER → 2019-03-09 15:46 | Outpatient (CLI) | payer OTHER, SELFPAY | PROVIDERS: PCP Student in an Organized Health Care Education/Training Program; Visit Provider Physician Assistant | DX: J02.9 Acute pharyngitis, unspecified (principal) | CPT/HCPCS: 87070 ==

== ENCOUNTER → 2019-05-02 09:06 | Outpatient (CLI) | payer OTHER, SELFPAY ==
[2019-05-02 09:51] LABS: Influenza A - CEPHEID Flu A NEGATIVE (NEGATIVE); Influenza B - CEPHEID Flu B NEGATIVE (NEGATIVE)
== END ==
PROVIDERS: PCP Student in an Organized Health Care Education/Training Program; Visit Provider Student in an Organized Health Care Education/Training Program
DX: R68.89 Other general symptoms and signs (principal)
CPT/HCPCS: 87502

== ENCOUNTER → 2019-09-01 16:14 | Outpatient (CLI) | payer SELFPAY ==
[2019-09-01 18:09] LABS: Hemoglobin A1C% w Est Avg Glu 11.1 % (4.0-6.0)
== END ==
PROVIDERS: PCP Student in an Organized Health Care Education/Training Program; Referring Provider Obstetrics & Gynecology; Visit Provider Obstetrics & Gynecology
DX: Z13.1 Encounter for screening for diabetes mellitus (principal); B37.3 Candidiasis of vulva and vagina
CPT/HCPCS: 36415; 83036

== ENCOUNTER → 2019-09-03 12:02 | Outpatient (CLI) | payer OTHER, SELFPAY ==
[2019-09-03 15:55] LABS: Creatinine Urine Random 13.9 mg/dL
[2019-09-03 16:03] LABS: Microalbumin Urine Random < 0.6 mg/dL (0-1.6)
== END ==
PROVIDERS: PCP Student in an Organized Health Care Education/Training Program; Referring Provider Student in an Organized Health Care Education/Training Program; Visit Provider Student in an Organized Health Care Education/Training Program
DX: E11.9 Type 2 diabetes mellitus without complications (principal)
CPT/HCPCS: 82043; 82570

== ENCOUNTER → 2019-10-14 14:52 | Outpatient (CLI) | payer OTHER, MEDICAID, SELFPAY ==
--- NOTE | 2019-10-14 16:57 | DIET.PN ---
Diabetes Intake: Initial Assessment Assess: Mrs. Talbot is a 59 YOF referred for type 2 diabetes. She is newly diagnosed (August 2019). Since September 02 she has cut out all sweet, starches, sugary beverages, and alcohol. She recently started checking her BG from a monitor her had received but never used. She has noticed her S/S of hyperglycemia resolving including excessive thirst, irritability, leg cramps, and yeast infections. She does endorse regular hypoglycemic episodes prior to decreasing her glipizide. Labs: Per pt report: 11.1 Meds: metformin 1000mg BID; glipizide Exercise: walk 1-2 mi Wt: 199 Ht: 65in BMI: 33.1 BP: 140/90 DX: Altered nutrition related laboratory values related to impaired glucose metabolism, lack of previous exposure to nutrition information as evidenced by pt report, diagnosis of diabetes, previous diet high in refined carbohydrates. Intervention: 1. Completed intake assessment. Discussed barriers to care. 2. Discussed pathophysiology of diabetes. Reviewed A1c and its correlation to blood glucose numbers. Discussed recommended BG ranges. 3. Discussed importance of self-monitoring, how often, and when to check. 4. Reviewed hyper/hypoglycemia and treatment. 5. Reviewed safe disposal of equipment (strip/lancets/insulin needles). 6. Created SMART goals for pt self-care and success. 7. Discussed program curriculum outline and class needs based on individual goals. SMART Goals: 1. Pt would like to lose 50 lbs (goal wt 150) through continued dietary changes including portion control and reduced caloric intake and daily exercise at least 30 min/day. Monitor/Evaluate: Anticipate excellent compliance. Pt will attend full DSME program.
== END ==
PROVIDERS: PCP Student in an Organized Health Care Education/Training Program; Referring Provider Student in an Organized Health Care Education/Training Program; Visit Provider Student in an Organized Health Care Education/Training Program
DX: E11.9 Type 2 diabetes mellitus without complications (principal); E66.9 Obesity, unspecified; Z68.33 Body mass index [BMI] 33.0-33.9, adult; Z79.84 Long term (current) use of oral hypoglycemic drugs; Z71.3 Dietary counseling and surveillance
CPT/HCPCS: G0108

== ENCOUNTER → 2019-10-23 09:59 | Outpatient (CLI) | payer OTHER, MEDICAID, SELFPAY ==
--- NOTE | 2019-10-23 11:43 | DIET.PN ---
Diabetes: Healthy Eating 2 Intervention: Fats effects on glucose, weight, heart disease, cholesterol Sat Vs Unsat Protein- animal and plant based options Low, med, high fat meats Sugar substitutes Sodium Health claims Grocery shopping guidelines Eating away from home Alcohol Sick day guidelines Ketone Testing
== END ==
PROVIDERS: PCP Student in an Organized Health Care Education/Training Program; Referring Provider Student in an Organized Health Care Education/Training Program; Visit Provider Student in an Organized Health Care Education/Training Program
DX: E11.9 Type 2 diabetes mellitus without complications (principal)
CPT/HCPCS: G0109

== ENCOUNTER → 2019-11-11 14:35 | Outpatient (CLI) | payer OTHER, MEDICAID, SELFPAY ==
--- NOTE | 2019-11-12 11:33 | DIET.PN ---
Addendum entered by Alia Rodriguez 11/12/19 11:37: Date of Service: 11/11/2019 Original Note: Diabetes: Healthy Eating 1 Intervention: ? Discussed pathophysiology of diabetes and impact of nutrition/diet on blood sugar control.? Discussed fed versus non-fed state.?? ? Reviewed importance of Balance, Variety, and Moderation. ? Discussed the effect of carbohydrates/protein/fat on blood sugar control.? ? Stressed importance of consistent carbohydrate intake at each meal and provided instructions for recommended servings/portions of carbohydrates/protein per meal. Provided educational material. ? Reviewed carbohydrate counting and measuring carbohydrate content via serving sizes and reading nutrition labels.? Provided handouts.?? ? Discussed the difference between simple versus complex carbohydrates and the effect of fiber on blood sugar control.? Discussed various methods to increase fiber content in diet. ? Discussed the plate method for creating more carbohydrate conscious balanced meals. ? Stressed importance of meal timing and not going >4-5 hours between meals. Encouraged adding protein to evening snack to support glucose control overnight. ? Discussed importance of making dietary habits part of lifestyle change.
== END ==
PROVIDERS: PCP Student in an Organized Health Care Education/Training Program; Referring Provider Student in an Organized Health Care Education/Training Program; Visit Provider Student in an Organized Health Care Education/Training Program
DX: E11.9 Type 2 diabetes mellitus without complications (principal); Z71.3 Dietary counseling and surveillance
CPT/HCPCS: G0109

== ENCOUNTER 2019-11-21 15:51 | Emergency (ER) | payer OTHER, MEDICAID, SELFPAY ==
[2019-11-21 15:56] VITALS: BP 142/70; PULSE 78; RESP 12; TEMP 37.1; O2SAT 96; BMI 32.1
[2019-11-21 15:59] VITALS: PULSE 80; O2SAT 96
[2019-11-21 16:00] VITALS: PULSE 80; O2SAT 96
[2019-11-21 16:21] LABS: INR 1.2 (0.9-1.3); Prothrombin Time 13.7 SECONDS (10.1-12.7)
[2019-11-21 16:22] LABS: Add Manual Diff / Slide Review NO; Basophils Absolute Auto 0 /uL (0-100); Basophils Percent Auto 0.5 % (0-2); Eosinophils Absolute Auto 100 /uL (0-450); Eosinophils Percent Auto 1.9 % (2-4); Hematocrit 38.9 % (36-46); Hemoglobin 13.9 g/dL (12.0-16.0); Lymphocytes Absolute Auto 1600 /uL (1100-4500); Lymphocytes Percent Auto 27.8 % (25-40); Mean Corpuscular HGB Conc 35.7 % (30-36); Mean Corpuscular Hemoglobin 34.7 PG (26-34); Mean Corpuscular Volume 97.3 fL (80-100); Monocytes Absolute Auto 600 /uL (0-900); Monocytes Percent Auto 10.2 % (3-14); Neutrophils Absolute Auto 3500 /uL (1500-7000); Neutrophils Percent Auto 59.6 % (50-75); Platelet Count 126 X10^3/uL (150-400); Red Cell Distribution Width 13.2 % (11.6-14.8); White Blood Cell Count 5.9 X10^3/uL (4.5-11.0)
[2019-11-21 16:24] LABS: PTT Partial Thromboplastin Tim 33 SECONDS (26.4-36.2)
[2019-11-21 16:26] LABS: Alanine Aminotransferase 44 IU/L (<35); Albumin 4.4 g/dL (3.5-5.0); Albumin Globulin Ratio 1.1 (1.0-2.8); Alkaline Phosphatase 109 U/L (38-126); Aspartate Aminotransferase 47 IU/L (14-36); BUN Creatinine Ratio 24.1 (6-22); Bilirubin Total 0.6 mg/dL (0.2-1.3); Blood Urea Nitrogen 13 mg/dL (7-17); Calcium 9.2 mg/dL (8.4-10.2); Carbon Dioxide 25 mmol/L (22-32); Chloride 100 mmol/L (98-107); Estimated Glomerular Filt Rate > 60.0 mL/min (>60); Globulin 3.9 g/dL (1.7-4.1); Glucose 113 mg/dL (70-100); HEMOLYSIS 43 (0-50); Lipase 60 U/L (23-300); Sodium 134 mmol/L (137-145); Total Protein 8.3 g/dL (6.3-8.2)
[2019-11-21 16:30] VITALS: BP 151/78; PULSE 79; RESP 18; O2SAT 95
[2019-11-21] MEDS: MORPHINE 2 MG/ML INJ IV ×2 (16:42→21:13)
[2019-11-21] MEDS: SODIUM CHLORIDE 0.9% 1,000 ML 1000 ML IV (16:42)
[2019-11-21] MEDS: ONDANSETRON 4 MG/2 ML INJ IV (16:42)
--- NOTE | 2019-11-21 16:58 | DI.US.S_ITS ---
PROCEDURE: US ABDOMEN LIMITED INDICATIONS: RUQ pain, hx kyle and liver dz TECHNIQUE: Real-time focused scanning was performed of the abdomen, with image documentation. COMPARISON: None. FINDINGS: Gallbladder is surgically absent. No focal liver lesions. No dilated ducts. Common hepatic duct measures 1.7 mm. Common bile duct measures 4.4 mm. Visualized portions of the pancreas are unremarkable. IMPRESSION: Remote cholecystectomy. Otherwise unremarkable right upper quadrant ultrasound. Dictated by: Enmanuel Huang M.D. on 11/21/2019 at 17:09 Approved by: Enmanuel Huang M.D. on 11/21/2019 at 17:10
[2019-11-21 17:00] VITALS: BP 117/66; PULSE 69; O2SAT 95
[2019-11-21] MEDS: MAG HYDROX/ALUMINUM/SIMETH SUS 20 ML, LIDOCAINE VISCOUS 2% 15 ML PO (18:41)
[2019-11-21] MEDS: PANTOPRAZOLE 40 MG VIAL IV (18:42)
--- NOTE | 2019-11-21 18:49 | DI.CT.S_ITS ---
PROCEDURE: CT ABDOMEN PELVIS W CON INDICATIONS: abd pain, vomiting TECHNIQUE: After the administration of intravenous contrast, 5 mm thick sections acquired from the diaphragm to the symphysis. 5 mm coronal and sagittal reformats were acquired. For radiation dose reduction, the following was used: automated exposure control, adjustment of mA and/or kV according to patient size. COMPARISON: [facility], , ABDOMEN LIMITED, 11/21/2019, 17:47. FINDINGS: Image quality: Excellent. ABDOMEN: Lung bases: Lung bases are clear. Heart size is normal. Solid organs: Mildly nodular appearance of the liver cysts facet is suspicious for early cirrhotic changes. The gallbladder is surgically absent. There is mild prominence of the central intrahepatic and extrahepatic biliary ducts that are most likely secondary to prior cholecystectomy. Pancreas enhances normally . The spleen is mildly enlarged. No adrenal nodules. Kidneys demonstrate normal size and enhancement, without hydronephrosis. Cysts are noted in the left kidney. Peritoneum and bowel: Moderate stool is seen in the colon. The appendix appears normal. Mild bowel wall thickening is seen in the antrum/pylorus of the stomach, which may be related to focal contraction or mild gastritis. There is no ascites or pneumoperitoneum. Nodes and vessels: No retroperitoneal or mesenteric adenopathy by size criteria. Aorta and inferior vena cava are normal in size. Small gastric and esophageal varices are present. Miscellaneous: No ventral hernias. PELVIS: Genitourinary: Bladder wall thickness is normal. The uterus is normal in size. No suspicious adnexal mass is seen. Miscellaneous: No inguinal hernias or adenopathy. Bones: No suspicious bony lesions. No vertebral body compression fractures. Mild degenerative changes are seen in the spine. IMPRESSION: 1. Mild bowel wall thickening in the antrum/pylorus of the stomach may be related to underdistention or contraction versus mild gastritis. 2. Nodular appearance of the liver surface is suspicious for early cirrhosis. Recommend correlation with clinical and laboratory findings. 3. Signs of portal hypertension including mild splenomegaly and small esophageal and gastric varices. Dictated by: Bon Ayala M.D. on 11/21/2019 at 19:06 Approved by: Bon Ayala M.D. on 11/21/2019 at 19:13
[2019-11-21 19:07] LABS: Bacteria Urine None Seen; RBC Urine None Seen (0-5/HPF)
[2019-11-21 19:29] LABS: Appearance Urine UA CLEAR; Bilirubin Urine UA NEGATIVE (NEGATIVE); Color Urine UA YELLOW; Culture Indicated Urine Cult Not Indicated; Glucose Urine UA NEGATIVE (Negative); Ketones Urine UA NEGATIVE (NEGATIVE); Leukocyte Esterase Urine UA NEGATIVE (NEGATIVE); Nitrite Urine UA NEGATIVE (Negative); Occult Blood Urine UA NEGATIVE (Negative); Protein Urine UA NEGATIVE (Negative); Specific Gravity Urine UA <=1.005 (1.000-1.035); Urobilinogen Urine UA 0.2 E.U./dL (0.2); WBC Urine 0-1/HPF (0-5/HPF)
--- NOTE | 2019-11-21 21:06 | ED.ABDPAIN ---
HPI - Abdominal Pain <Deb JaramilloANAP-BC - Last Filed: 11/21/19 21:21> General Chief Complaint: Abdominal Pain Stated Complaint: SEVERE ABD PAIN VOMITING Time Seen by Provider: 11/21/19 16:19 Source: patient and family Mode of arrival: Ambulatory Limitations: no limitations History of Present Illness HPI narrative: The patient is a 59-year-old female who presents with her with a history of cholecystectomy who presents with a chief complaint of right upper quadrant pain. She states it started after breakfast. Did not use anything of the ordinary, later states that was after she had some odd smelling and odd tasting a fresh snap peas. She denies any fevers but complains of severe pain and general malaise. She had multiple episodes of vomiting, nausea, no diarrhea but multiple soft stools. She denies any chest pain or shortness of breath. She has not taken anything for the pain. She states it stays in her right upper quadrant. No dysuria urgency or frequency. She does have history of type 2 diabetes, cholecystectomy. She also has a history of liver issues. Related Data Home Medications Medication Instructions Recorded Confirmed ASCORBIC ACID (VITAMIN C) 3,000 mg PO Q DAY #0 09/01/19 09/03/19 Women's Daily Care Probiotic 40 PO 09/01/19 09/03/19 billion CFU cholecalciferol (vitamin D3) 50 100 mcg PO #0 cap 09/01/19 09/03/19 mcg (2,000 unit) capsule cyanocobalamin (vitamin B-12) 5,000 mcg PO #0 tab 09/01/19 09/03/19 1,000 mcg tablet,extended release glucosamine 750 kf-tiuafizefrk-vrj 2 tab PO DAILY 09/01/19 09/03/19 no1 644 mg-C 30 mg-kain 1 mg tablet awvtulnkltdw-htdoqayd-yvkyuos-folic 1 tab PO DAILY 09/01/19 09/03/19 acid 400 mcg-vit K1 20 mcg tablet aspirin 81 mg tablet,delayed 81 mg PO DAILY 09/03/19 09/03/19 release Previous Rx's Medication Instructions Recorded acyclovir 800 mg tablet 800 mg PO DAILY #90 tab 08/12/19 lisinopril 20 mg tablet 20 mg PO QDAY #90 tab 08/14/19 fluconazole 150 mg tablet 150 mg PO Q72H #3 tab 09/01/19 nystatin-triamcinolone 100,000 1 applictn TOP TID 14 Days #15 gram 09/01/19 unit/gram-0.1 % topical ointment simvastatin 10 mg tablet 10 mg PO HS #90 tab 09/03/19 glipizide 5 mg tablet 2.5 mg PO DAILY #15 tab 10/07/19 metformin 1,000 mg tablet 1,000 mg PO BID #180 tab 10/07/19 zolpidem 10 mg tablet 10 mg PO BEDTIME PRN #30 tab 10/27/19 blood glucose monitor #1 ea 11/14/19 blood sugar diagnostic #100 each 11/14/19 lancets 30 gauge #100 each 11/14/19 ondansetron 4 mg PO Q6H PRN #14 tab 11/21/19 Allergies Allergy/AdvReac Type Severity Reaction Status Date / Time acetaminophen [From TYLOX] Allergy Severe itchy,rash,trouble Verified 11/21/19 16:00 breathing trazodone Allergy Intermediate Hives Verified 11/21/19 16:00 hydromorphone [From Dilaudid] Allergy Mild itchy Verified 11/21/19 16:00 codeine [CODEINE] Allergy Unknown hives Verified 11/21/19 16:00 hydrocodone [HYDROCODONE] Allergy Unknown hives Verified 11/21/19 16:00 prochlorperazine Allergy Unknown hallucinati Verified 11/21/19 16:00 [From COMPAZINE] ons sumatriptan [From IMITREX] Allergy Unknown rash and Verified 11/21/19 16:00 swelling ergotamine [ERGOTAMINE] AdvReac Unknown paralyzining Verified 11/21/19 16:00 feeling from the waste down oxycodone [From PERCOCET] AdvReac Unknown ulcers Verified 11/21/19 16:00 Blue Dye Allergy Mild Hives Uncoded 11/21/19 16:00 [id number] Allergy Unknown rash at Uncoded 11/21/19 16:00 injection site Review of Systems <LEO Jesus-BC - Last Filed: 11/21/19 21:21> Review of Systems Narrative: GENERAL: Denies chills, fatigue, malaise, fever, sweats. HEENT: Denies sinus pain, ear pain, sore throat, difficulty swallowing, dizziness. RESPIRATORY: Denies dyspnea, cough, wheezing, hemoptysis, sputum. CARDIOVASCULAR: See HPI GASTROINTESTINAL: See HPI : Denies dysuria, frequency, incontinence, hematuria, urinary retention. MUSCULOSKELETAL: denies weakness, joint pain, or bony pain SKIN: Denies rash, skin lesions, or other NEUROLOGIC: Denies weakness, headache, numbness, change in speech, confusion, seizures, incoordination. PSYCHIATRIC: No concerning psychosocial issues. 12 point review of systems is negative except for those stated above Patient History <JUSTO Jesus - Last Filed: 11/21/19 21:21> Medical History (Updated 11/21/19 @ 21:17 by JUSTO Jesus) Autoimmune hepatitis (Acute) Bacterial URI (Acute) Bronchitis with flu (Acute) Carpal tunnel syndrome (Chronic ~2004) Chicken pox (Resolved ~1963) Fibroids (Chronic ~2006) Flu-like symptoms (Acute) Herpes (Resolved ~1997) Hypertension (Chronic ~1999) Migraines (Resolved) Osteoarthritis (Chronic ~2006) Ovarian cyst (Resolved ~2006) Shoulder pain (Chronic ~2012) Skin rash (Chronic ~2005) Surgical History Anesthesia (Resolved) History of liver biopsy (Resolved ~2001) History of release of tendon (Resolved ~1989) History of surgery (Resolved ~2003) History of tonsillectomy (~1963) Status post laparoscopic cholecystectomy (~1986) Status post tubal ligation (~2006) Family History Brother Age: 64 Hypertension Hyperlipidemia Father Hypertension Hyperlipidemia Brother Cancer Brother Cancer Mother No problems noted. Social History Smoking Status: Never smoker eating out: 1-3 times/week Type(s) of exercise: walking Smoking Status: Never smoker alcohol intake frequency: holidays/special occasions only Substance Use Type: does not use Exam <JUSTO Jesus - Last Filed: 11/21/19 21:21> Narrative Exam Narrative: GENERAL: This is a well-nourished, well-developed patient, in no acute distress HEAD: Atraumatic. Normocephalic. No temporal or scalp tenderness. EYES: Pupils equal round and reactive. Extraocular motions intact. No scleral icterus. No injection or drainage. ENT: Nose without bleeding, purulent drainage or septal hematoma. Throat without erythema, tonsillar hypertrophy or exudate. Uvula midline. Airway patent. NECK: Trachea midline. No JVD or lymphadenopathy. Supple, nontender, no meningeal signs. CARDIOVASCULAR: Regular rate and rhythm RESPIRATORY: Clear to auscultation. Breath sounds equal bilaterally. No wheezes, rales, or rhonchi. No cough. No increased respiratory effort. No accessory muscle use. GASTROINTESTINAL: Abdomen soft, tenderness palpation right upper quadrant epigastric tenderness to palpation, nondistended. No hepato-splenomegaly, or palpable masses. No guarding active bowel sounds all 4 quadrants. EXTREMITIES: No clubbing, cyanosis, or edema. No joint tenderness, effusion, or edema noted. BACK: Nontender without deformity or crepitance. No flank tenderness. NEURO: AOx3. SKIN: No rash or erythema on visible skin Initial Vital Signs Initial Vital Signs: Vital Signs Temperature 98.7 F 11/21/19 15:56 Pulse Rate 78 11/21/19 15:56 Respiratory Rate 12 11/21/19 15:56 Blood Pressure 142/70 H 11/21/19 15:56 Pulse Oximetry 96 11/21/19 15:56 <Bulmaro Kelsey MD - Last Filed: 11/22/19 04:59> Initial Vital Signs Initial Vital Signs: Vital Signs Temperature 98.7 F 11/21/19 15:56 Pulse Rate 78 11/21/19 15:56 Respiratory Rate 12 11/21/19 15:56 Blood Pressure 142/70 H 11/21/19 15:56 Pulse Oximetry 96 11/21/19 15:56 Course <JUSTO Jesus - Last Filed: 11/21/19 21:21> Orders Ordered: Discontinued Medications Al Hydrox/Mg Hydrox/Simethicone 20 ml/ Lidocaine HCl 15 ml 0 ml PO NOW ONE Stop: 11/21/19 18:07 Last Admin: 11/21/19 18:41 Dose: 35 ml Documented by: RSTONE Sodium Chloride (Normal Saline 0.9%) 1,000 mls @ 1,000 mls/hr IV BOLUS ONE Stop: 11/21/19 17:34 Last Infusion: 11/21/19 18:05 Dose: 0 mls/hr Documented by: Admin: 11/21/19 16:42 Dose: 1,000 mls/hr Documented by: GENARO Morphine Sulfate (Morphine) 2 mg IV NOW ONE Stop: 11/21/19 16:36 Last Admin: 11/21/19 16:42 Dose: 2 mg Documented by: GENARO Morphine Sulfate (Morphine) 2 mg IV NOW ONE Stop: 11/21/19 20:45 Last Admin: 11/21/19 21:13 Dose: 2 mg Documented by: PEARL Ondansetron HCl (Zofran) 4 mg IV NOW ONE Stop: 11/21/19 16:36 Last Admin: 11/21/19 16:42 Dose: 4 mg Documented by: GENARO Ondansetron HCl (Zofran Odt Prepack) 1 bottle MISC SEEINSTR ONE Stop: 11/21/19 20:45 Last Admin: 11/21/19 21:13 Dose: 1 bottle Documented by: PEARL Pantoprazole Sodium (Protonix) 40 mg IV NOW ONE Stop: 11/21/19 18:07 Last Admin: 11/21/19 18:42 Dose: 40 mg Documented by: GENARO Vital Signs Vital signs: Vital Signs - 8 hr 11/21/19 21:34 Pulse Rate 71 Respiratory Rate 16 Blood Pressure 135/76 Pulse Oximetry 95 <Bulmaro Kelsey MD - Last Filed: 11/22/19 04:59> Orders Ordered: Discontinued Medications Al Hydrox/Mg Hydrox/Simethicone 20 ml/ Lidocaine HCl 15 ml 0 ml PO NOW ONE Stop: 11/21/19 18:07 Last Admin: 11/21/19 18:41 Dose: 35 ml Documented by: GENARO Sodium Chloride (Normal Saline 0.9%) 1,000 mls @ 1,000 mls/hr IV BOLUS ONE Stop: 11/21/19 17:34 Last Infusion: 11/21/19 18:05 Dose: 0 mls/hr Documented by: Admin: 11/21/19 16:42 Dose: 1,000 mls/hr Documented by: GENARO Morphine Sulfate (Morphine) 2 mg IV NOW ONE Stop: 11/21/19 16:36 Last Admin: 11/21/19 16:42 Dose: 2 mg Documented by: GENARO Morphine Sulfate (Morphine) 2 mg IV NOW ONE Stop: 11/21/19 20:45 Last Admin: 11/21/19 21:13 Dose: 2 mg Documented by: PEARL Ondansetron HCl (Zofran) 4 mg IV NOW ONE Stop: 11/21/19 16:36 Last Admin: 11/21/19 16:42 Dose: 4 mg Documented by: GENARO Ondansetron HCl (Zofran Odt Prepack) 1 bottle MISC SEEINSTR ONE Stop: 11/21/19 20:45 Last Admin: 11/21/19 21:13 Dose: 1 bottle Documented by: PEARL Pantoprazole Sodium (Protonix) 40 mg IV NOW ONE Stop: 11/21/19 18:07 Last Admin: 11/21/19 18:42 Dose: 40 mg Documented by: GENARO Vital Signs Vital signs: Vital Signs - 8 hr 11/21/19 21:34 Pulse Rate 71 Respiratory Rate 16 Blood Pressure 135/76 Pulse Oximetry 95 MDM - Abdominal Pain <JUSTO Jesus - Last Filed: 11/21/19 21:21> Lab Data Attestation: I reviewed the patient's lab results. Result diagrams: 11/21/19 16:10 11/21/19 16:10 Labs: Lab Results 11/21/19 11/21/19 11/21/19 Range/Units 16:10 16:10 16:10 WBC 5.9 (4.5-11.0) X10^3/uL RBC 4.00 (4.0-5.2) X10^6/uL Hgb 13.9 (12.0-16.0) g/dL Hct 38.9 (36-46) % MCV 97.3 (80-100) fL MCH 34.7 H (26-34) PG MCHC 35.7 (30-36) % RDW 13.2 (11.6-14.8) % Plt Count 126 L (150-400) X10^3/uL Neut % (Auto) 59.6 (50-75) % Lymph % (Auto) 27.8 (25-40) % [place] % (Auto) 10.2 (3-14) % Eos % (Auto) 1.9 L (2-4) % Baso % (Auto) 0.5 (0-2) % Neut # (Auto) 3500 (5160-4801) /uL Lymph # (Auto) 1600 (5048-0690) /uL [place] # (Auto) 600 (0-900) /uL Eos # (Auto) 100 (0-450) /uL Baso # (Auto) 0 (0-100) /uL PT 13.7 H (10.1-12.7) SECONDS INR 1.2 (0.9-1.3) APTT 33 (26.4-36.2) SECONDS Sodium 134 L (137-145) mmol/L Potassium 4.0 (3.4-5.1) mmol/L Chloride 100 (98-107) mmol/L Carbon Dioxide 25 (22-32) mmol/L BUN 13 (7-17) mg/dL Creatinine 0.54 (0.52-1.04) mg/dL Estimated GFR > 60.0 (>60) mL/min BUN/Creatinine Ratio 24.1 H (6-22) Glucose 113 H (70-100) mg/dL Calcium 9.2 (8.4-10.2) mg/dL Total Bilirubin 0.6 (0.2-1.3) mg/dL AST 47 H (14-36) IU/L ALT 44 H (<35) IU/L Alkaline Phosphatase 109 (38-126) U/L Total Protein 8.3 H (6.3-8.2) g/dL Albumin 4.4 (3.5-5.0) g/dL Globulin 3.9 (1.7-4.1) g/dL Albumin/Globulin Ratio 1.1 (1.0-2.8) Lipase 60 (23-300) U/L Urine Color Urine Appearance Urine pH (4.5-8.0) Ur Specific [place] (1.000-1.035) Urine Protein (Negative) Urine Glucose (UA) (Negative) g/dL Urine Ketones (NEGATIVE) Urine Occult Blood (Negative) Urine Nitrate (Negative) Urine Bilirubin (NEGATIVE) Urine Urobilinogen (0.2) E.U./dL Ur Leukocyte Esterase (NEGATIVE) Urine RBC (0-5/HPF) Urine WBC (0-5/HPF) Urine Bacteria (None) Ur Culture Indicated? 09/18/20 Range/Units 18:49 WBC (4.5-11.0) X10^3/uL RBC (4.0-5.2) X10^6/uL Hgb (12.0-16.0) g/dL Hct (36-46) % MCV (80-100) fL MCH (26-34) PG MCHC (30-36) % RDW (11.6-14.8) % Plt Count (150-400) X10^3/uL Neut % (Auto) (50-75) % Lymph % (Auto) (25-40) % [place] % (Auto) (3-14) % Eos % (Auto) (2-4) % Baso % (Auto) (0-2) % Neut # (Auto) (5622-4763) /uL Lymph # (Auto) (7456-9955) /uL [place] # (Auto) (0-900) /uL Eos # (Auto) (0-450) /uL Baso # (Auto) (0-100) /uL PT (10.1-12.7) SECONDS INR (0.9-1.3) APTT (26.4-36.2) SECONDS Sodium (137-145) mmol/L Potassium (3.4-5.1) mmol/L Chloride (98-107) mmol/L Carbon Dioxide (22-32) mmol/L BUN (7-17) mg/dL Creatinine (0.52-1.04) mg/dL Estimated GFR (>60) mL/min BUN/Creatinine Ratio (6-22) Glucose (70-100) mg/dL Calcium (8.4-10.2) mg/dL Total Bilirubin (0.2-1.3) mg/dL AST (14-36) IU/L ALT (<35) IU/L Alkaline Phosphatase (38-126) U/L Total Protein (6.3-8.2) g/dL Albumin (3.5-5.0) g/dL Globulin (1.7-4.1) g/dL Albumin/Globulin Ratio (1.0-2.8) Lipase (23-300) U/L Urine Color Yellow Urine Appearance Clear Urine pH 7.0 (4.5-8.0) Ur Specific [place] <=1.005 (1.000-1.035) Urine Protein Negative (Negative) Urine Glucose (UA) Negative (Negative) g/dL Urine Ketones Negative (NEGATIVE) Urine Occult Blood Negative (Negative) Urine Nitrate Negative (Negative) Urine Bilirubin Negative (NEGATIVE) Urine Urobilinogen 0.2 (0.2) E.U./dL Ur Leukocyte Esterase Negative (NEGATIVE) Urine RBC None seen (0-5/HPF) Urine WBC 0-1/hpf (0-5/HPF) Urine Bacteria None seen (None) Ur Culture Indicated? Cult not indicated Point of care testing: Urine Dip Bedside Urine Glucose 100 mg/dl Bedside Urine Bilirubin - Negative Bedside Urine Ketone - Negative Urine Specific [place] 1.015 Bedside Urine Occult Blood - Negative Bedside Urine pH 6.5 Bedside Urine Protein +/- 15 Bedside Urine Urobilinogen +/- 1mg Bedside Urine Nitrite + Positive Bedside Urine Leukocytes +/- [address] scan - abdomen/pelvis: Radiologist's Impression: [address] [place] [id number] Scan Report Signed Patient: Nadeen Talbot CMR#: [id number] : 2Acct:[id number] Age/Sex: 59 / FDate of Service: 11/21/19 Loc: ED Accession Number: [id number] Procedure: CT abdomen pelvis w con Ordering Provider: Deb JaramilloP- PROCEDURE: CT ABDOMEN PELVIS W CON INDICATIONS: abd pain, vomiting TECHNIQUE: After the administration of intravenous contrast, 5 mm thick sections acquired from the diaphragm to the symphysis. 5 mm coronal and sagittal reformats were acquired. For radiation dose reduction, the following was used: automated exposure control, adjustment of mA and/or kV according to patient size. COMPARISON: [facility], , US ABDOMEN LIMITED, 11/21/2019, 17:47. FINDINGS: Image quality: Excellent. ABDOMEN: Lung bases: Lung bases are clear. Heart size is normal. Solid organs: Mildly nodular appearance of the liver cysts facet is suspicious for early cirrhotic changes. The gallbladder is surgically absent. There is mild prominence of the central intrahepatic and extrahepatic biliary ducts that are most likely secondary to prior cholecystectomy. Pancreas enhances normally . The spleen is mildly enlarged. No adrenal nodules. Kidneys demonstrate normal size and enhancement, without hydronephrosis. Cysts are noted in the left kidney. Peritoneum and bowel: Moderate stool is seen in the colon. The appendix appears normal. Mild bowel wall thickening is seen in the antrum/pylorus of the stomach, which may be related to focal contraction or mild gastritis. There is no ascites or pneumoperitoneum. Nodes and vessels: No retroperitoneal or mesenteric adenopathy by size criteria. Aorta and inferior vena cava are normal in size. Small gastric and esophageal varices are present. Miscellaneous: No ventral hernias. PELVIS: Genitourinary: Bladder wall thickness is normal. The uterus is normal in size. No suspicious adnexal mass is seen. Miscellaneous: No inguinal hernias or adenopathy. Bones: No suspicious bony lesions. No vertebral body compression fractures. Mild degenerative changes are seen in the spine. IMPRESSION: 1. Mild bowel wall thickening in the antrum/pylorus of the stomach may be related to underdistention or contraction versus mild gastritis. 2. Nodular appearance of the liver surface is suspicious for early cirrhosis. Recommend correlation with clinical and laboratory findings. 3. Signs of portal hypertension including mild splenomegaly and small esophageal and gastric varices. Dictated by: Bon Ayala M.D. on 11/21/2019 at 19:06 Approved by: Bon Ayala M.D. on 11/21/2019 at 19:13 US - abdomen: Radiologist's Impression: [address] [place] [address] Ultrasound Report Signed Patient: Nadeen Talbot CMR#: [id number] : 2Acct:[id number] Age/Sex: 59 / FDate of Service: 11/21/19 Loc: ED Accession Number: [id number] Procedure: US abdomen limited Ordering Provider: Deb Jaramillo PROCEDURE: US ABDOMEN LIMITED INDICATIONS: RUQ pain, hx kyle and liver dz TECHNIQUE: Real-time focused scanning was performed of the abdomen, with image documentation. COMPARISON: None. FINDINGS: Gallbladder is surgically absent. No focal liver lesions. No dilated ducts. Common hepatic duct measures 1.7 mm. Common bile duct measures 4.4 mm. Visualized portions of the pancreas are unremarkable. IMPRESSION: Remote cholecystectomy. Otherwise unremarkable right upper quadrant ultrasound. Dictated by: Enmanuel Huang M.D. on 11/21/2019 at 17:09 Approved by: Enmanuel Huang M.D. on 11/21/2019 at 17:10 ECG Data Attestation: I personally reviewed and interpreted this ECG as follows: Interpretation: Sinus rhythm. Ventricular rate 65. P.r. interval 190. QRS 92. Viewed by Dr. Wilcox [facility] Narrative Medical decision making narrative: The patient is a 51-year-old female who presents with a chief complaint of right upper quadrant pain, nausea and vomiting. Given that she has a history of cholecystectomy, as well as history of liver disease, ultrasound was done which shows no retained stones or acute findings. Labs grossly within normal at, no leukocytosis, no elevated bilirubin. She is very concerned about a bowel obstruction, does have a surgical abdominal history, so CT was obtained to rule out any acute findings. There is a possibility of gastritis, and while discussing this with the patient she notes that this all started after she ate some ?bad smelling peas that tasted funny.Additionally her CT shows the possibility of gastritis, but no other acute findings other than the possibility of portal hypertension as well as early liver nodules. The patient is aware of both of these findings and states that correlate with her history. No retained stones found on imaging. The patient is able to tolerate p.o. food and fluids after Ativan and pain medicine. I encouraged follow-up with primary care provider in the next few days, eating a light diet with focus on liquids over the next few days. Discussed at length coming back to the emergency department for any acute concerns such as chest pain, shortness of breath, abdominal pain with fever, inability keep down fluids etcetera. Patient has no questions or concerns upon discharge and states understanding return precautions as well as follow-up care. The patient has no episodes of vomiting during her stay in the emergency department. She remained afebrile. I did discuss the liver findings impossible to portal hypertension noted on her CT. Discussed at length coming back to the emergency department for any acute concerns. Patient repeatedly declined any pain medications on discharge. <Bulmaro Kelsey MD - Last Filed: 11/22/19 04:59> Lab Data Labs: Lab Results 11/21/19 11/21/19 11/21/19 Range/Units 16:10 16:10 16:10 WBC 5.9 (4.5-11.0) X10^3/uL RBC 4.00 (4.0-5.2) X10^6/uL Hgb 13.9 (12.0-16.0) g/dL Hct 38.9 (36-46) % MCV 97.3 (80-100) fL MCH 34.7 H (26-34) PG MCHC 35.7 (30-36) % RDW 13.2 (11.6-14.8) % Plt Count 126 L (150-400) X10^3/uL Neut % (Auto) 59.6 (50-75) % Lymph % (Auto) 27.8 (25-40) % [place] % (Auto) 10.2 (3-14) % Eos % (Auto) 1.9 L (2-4) % Baso % (Auto) 0.5 (0-2) % Neut # (Auto) 3500 (4819-4454) /uL Lymph # (Auto) 1600 (3189-4604) /uL [place] # (Auto) 600 (0-900) /uL Eos # (Auto) 100 (0-450) /uL Baso # (Auto) 0 (0-100) /uL PT 13.7 H (10.1-12.7) SECONDS INR 1.2 (0.9-1.3) APTT 33 (26.4-36.2) SECONDS Sodium 134 L (137-145) mmol/L Potassium 4.0 (3.4-5.1) mmol/L Chloride 100 (98-107) mmol/L Carbon Dioxide 25 (22-32) mmol/L BUN 13 (7-17) mg/dL Creatinine 0.54 (0.52-1.04) mg/dL Estimated GFR > 60.0 (>60) mL/min BUN/Creatinine Ratio 24.1 H (6-22) Glucose 113 H (70-100) mg/dL Calcium 9.2 (8.4-10.2) mg/dL Total Bilirubin 0.6 (0.2-1.3) mg/dL AST 47 H (14-36) IU/L ALT 44 H (<35) IU/L Alkaline Phosphatase 109 (38-126) U/L Total Protein 8.3 H (6.3-8.2) g/dL Albumin 4.4 (3.5-5.0) g/dL Globulin 3.9 (1.7-4.1) g/dL Albumin/Globulin Ratio 1.1 (1.0-2.8) Lipase 60 (23-300) U/L Urine Color Urine Appearance Urine pH (4.5-8.0) Ur Specific [place] (1.000-1.035) Urine Protein (Negative) Urine Glucose (UA) (Negative) g/dL Urine Ketones (NEGATIVE) Urine Occult Blood (Negative) Urine Nitrate (Negative) Urine Bilirubin (NEGATIVE) Urine Urobilinogen (0.2) E.U./dL Ur Leukocyte Esterase (NEGATIVE) Urine RBC (0-5/HPF) Urine WBC (0-5/HPF) Urine Bacteria (None) Ur Culture Indicated? 11/21/19 Range/Units 18:49 WBC (4.5-11.0) X10^3/uL RBC (4.0-5.2) X10^6/uL Hgb (12.0-16.0) g/dL Hct (36-46) % MCV (80-100) fL MCH (26-34) PG MCHC (30-36) % RDW (11.6-14.8) % Plt Count (150-400) X10^3/uL Neut % (Auto) (50-75) % Lymph % (Auto) (25-40) % [place] % (Auto) (3-14) % Eos % (Auto) (2-4) % Baso % (Auto) (0-2) % Neut # (Auto) (1156-3846) /uL Lymph # (Auto) (1473-1539) /uL [place] # (Auto) (0-900) /uL Eos # (Auto) (0-450) /uL Baso # (Auto) (0-100) /uL PT (10.1-12.7) SECONDS INR (0.9-1.3) APTT (26.4-36.2) SECONDS Sodium (137-145) mmol/L Potassium (3.4-5.1) mmol/L Chloride (98-107) mmol/L Carbon Dioxide (22-32) mmol/L BUN (7-17) mg/dL Creatinine (0.52-1.04) mg/dL Estimated GFR (>60) mL/min BUN/Creatinine Ratio (6-22) Glucose (70-100) mg/dL Calcium (8.4-10.2) mg/dL Total Bilirubin (0.2-1.3) mg/dL AST (14-36) IU/L ALT (<35) IU/L Alkaline Phosphatase (38-126) U/L Total Protein (6.3-8.2) g/dL Albumin (3.5-5.0) g/dL Globulin (1.7-4.1) g/dL Albumin/Globulin Ratio (1.0-2.8) Lipase (23-300) U/L Urine Color Yellow Urine Appearance Clear Urine pH 7.0 (4.5-8.0) Ur Specific [place] <=1.005 (1.000-1.035) Urine Protein Negative (Negative) Urine Glucose (UA) Negative (Negative) g/dL Urine Ketones Negative (NEGATIVE) Urine Occult Blood Negative (Negative) Urine Nitrate Negative (Negative) Urine Bilirubin Negative (NEGATIVE) Urine Urobilinogen 0.2 (0.2) E.U./dL Ur Leukocyte Esterase Negative (NEGATIVE) Urine RBC None seen (0-5/HPF) Urine WBC 0-1/hpf (0-5/HPF) Urine Bacteria None seen (None) Ur Culture Indicated? Cult not indicated Point of care testing: Urine Dip Bedside Urine Glucose 100 mg/dl Bedside Urine Bilirubin - Negative Bedside Urine Ketone - Negative Urine Specific [place] 1.015 Bedside Urine Occult Blood - Negative Bedside Urine pH 6.5 Bedside Urine Protein +/- 15 Bedside Urine Urobilinogen +/- 1mg Bedside Urine Nitrite + Positive Bedside Urine Leukocytes +/- 15 Esterase Discharge Plan Departure Patient Disposition: Home Clinical Impression: Abdominal pain Qualifiers: Abdominal location: right upper quadrant Qualified Code(s): R10.11 - Right upper quadrant pain Nausea & vomiting Qualifiers: Vomiting type: unspecified Vomiting Intractability: non-intractable Qualified Code(s): R11.2 - Nausea with vomiting, unspecified Discharge Date/Time: 11/21/19 21:36 Instructions: DI for Abdominal Pain-Adult, DI for Nausea -- Adult, DI for Vomiting -- Adult Activity Restrictions/Additional Instructions: Thank you for trusting us with your care today. As discussed, your workup came back very well. I sent a prescription ondansetron for nausea to [facility] for you to fill tomorrow. As discussed, please eat a light diet. Please focus on small sips of fluids. Please avoid anything acidic, fatty or heavy as this can irritate your stomach. Please follow-up with primary care provider in the next 48-72 hours Please come back to the emergency department for any acute concerns such as concern of heart attack or stroke, abdominal pain with fever etcetera Prescriptions: New ondansetron 4 mg tablet,disintegrating 4 mg PO Q6H PRN (Reason: nausea and vomiting) Qty: 14 RF: 0 No Action acyclovir 800 mg tablet 800 mg PO DAILY Qty: 90 RF: 3 lisinopril 20 mg tablet 20 mg PO QDAY Qty: 90 RF: 3 cyanocobalamin (vitamin B-12) 1,000 mcg tablet extended release 5,000 mcg PO Qty: 0 RF: 0 ASCORBIC ACID (VITAMIN C) 3,000 mg PO Q DAY Qty: 0 RF: 0 cholecalciferol (vitamin D3) [Vitamin D3] 50 mcg (2,000 unit) capsule 100 mcg PO Qty: 0 RF: 0 glipizide 5 mg tablet 2.5 mg PO DAILY Qty: 15 RF: 2 metformin 1,000 mg tablet 1,000 mg PO BID Qty: 180 RF: 0 zolpidem 10 mg tablet 10 mg PO BEDTIME PRN (Reason: insomnia) Qty: 30 RF: 4 (DME) blood glucose monitor Qty: 1 RF: 0 (DME) blood sugar diagnostic [Blood Glucose Test] Strip See Rx Instructions .ROUTE .MEDSUPPLY Qty: 100 RF: 3 (DME) lancets 30 gauge misc See Rx Instructions .ROUTE .MEDSUPPLY Qty: 100 RF: 3 One-A-Day Women's 50 Plus 400-20 mcg tablet 1 tab PO DAILY RF: 0 Osteo Bi-Flex Triple Strength 750 mg-644 mg- 30 mg-1 mg tablet 2 tab PO DAILY RF: 0 Women's Daily Care Probiotic 40 billion CFU PO RF: 0 fluconazole 150 mg tablet 150 mg PO Q72H Qty: 3 RF: 1 nystatin-triamcinolone 100,000-0.1 unit/gram-% ointment 1 applictn TOP TID 14 Days Qty: 15 RF: 1 simvastatin 10 mg tablet 10 mg PO HS Qty: 90 RF: 3 aspirin 81 mg tablet,delayed release (DR/EC) 81 mg PO DAILY RF: 0 Referrals: Trevor Bellamy MD [Primary Care Provider] - <Bulmaro Kelsey MD - Last Filed: 11/22/19 04:59> Cosign ED Attending Cosignature Attestation: I was immediately available in the department for consultation. This documentation has been reviewed and I agree with assessment and plan. Supervised by Bulmaro Kelsey MD
[2019-11-21] MEDS: ONDANSETRON 4 MG ODT PREPACK 1 BOTTLE MISC (21:13)
[2019-11-21 21:34] VITALS: BP 135/76; PULSE 71; RESP 16; O2SAT 95
== END 2019-11-21 21:36 | disposition home or self-care (01) ==
PROVIDERS: Emergency Medicine; Emergency Provider Nurse Practitioner Family; PCP Student in an Organized Health Care Education/Training Program
DX: R10.11 Right upper quadrant pain (principal); R11.2 Nausea with vomiting, unspecified; E11.9 Type 2 diabetes mellitus without complications; Z87.19 Personal history of other diseases of the digestive system
CPT/HCPCS: 36415; 74177; 76705; 80053; 81003; 81015; 83690; 85025; 85610; 85730; 93005; 93010; 96361; 96374; 96375; 96376; 99284; 99285; C9113; J2270; J2405

== ENCOUNTER → 2019-12-03 13:52 | Outpatient (CLI) | payer OTHER, MEDICAID, SELFPAY ==
[2019-12-03 15:00] VITALS: BMI 32.5
--- NOTE | 2019-12-03 15:00 | DIET.PN ---
DIABETES Nutrition Initial Assessment:? ASSESS:?? Mrs. Talbot is a 59 yof??referred for type 2 diabetes seen as part of DSME program. She endorses continued success in following her new dietary habits, monitoring her blood sugar twice per day, and walking 60-90 min at least 5 days per week. She has had good glucose control for the last few months. She discontinued taking glipizide (date unknown), but has since not had any hypoglycemic events. She is thrilled with her glucose and weight loss results and reports she is no longer craving starches and sweets. ??? LABS: Per pt report:? FB-100 evenin-130 ? MEDS:?? metformin 1000mg BID; glipizide ? DIET: cut out all sweets, starches, and alcohol Eating Out: rarely Changes in Appetite: reduced cravings of sweets Nutrition Supplements: cinnamon, ACV, vit D, turmeric, multivitamin, glucosamine ? Weight: 195lb Height: 65in BMI: ? 32.4 ? Exercise:? walking 60-90 min daily NUTRITION DX 1. Altered Nutrition related labs related to impaired glucose metabolism, lack of previous exposure to accurate nutrition information as evidenced by pt report, dx of diabetes, previous diet high in refined carbohydrates.? INTERVENTION(s): 1. Reviewed pathophysiology of diabetes and impact of nutrition/diet on blood sugar control.? Discussed fed versus non-fed state.?? 2. Discussed the effect of carbohydrates/protein/fat on blood sugar control.? Stressed importance of consistent carbohydrate intake at each meal and provided instructions for recommended servings/portions of carbohydrates/protein per meal. Provided pt with educational material. 3. Reviewed carbohydrate counting and measuring carbohydrate content via serving sizes and reading nutrition labels.? 4. Reviewed the difference between simple versus complex carbohydrates and the effect of fiber on blood sugar control.? Discussed various methods to increase fiber content in diet. 5. Discussed healthy weight loss goals of 1-2lbs per week through diet and exercise.? 6. Recommend continued monitoring of fasting and alternating 2 hr PP mealtime glucose. MONITOR/EVALUATE: Request new labs.? Follow-up scheduled for 1 month.
== END ==
PROVIDERS: PCP Student in an Organized Health Care Education/Training Program; Referring Provider Student in an Organized Health Care Education/Training Program; Visit Provider Student in an Organized Health Care Education/Training Program
DX: E11.9 Type 2 diabetes mellitus without complications (principal); E66.9 Obesity, unspecified; Z68.32 Body mass index [BMI] 32.0-32.9, adult; Z71.3 Dietary counseling and surveillance; Z79.84 Long term (current) use of oral hypoglycemic drugs
CPT/HCPCS: G0109

== ENCOUNTER → 2019-12-12 15:48 | Outpatient (CLI) | payer OTHER, MEDICAID, SELFPAY ==
[2019-12-12 16:56] LABS: Hemoglobin A1C% w Est Avg Glu 5.2 % (4.0-6.0)
[2019-12-12 18:36] LABS: Alanine Aminotransferase 52 IU/L (<35); Albumin 4.3 g/dL (3.5-5.0); Alkaline Phosphatase 141 U/L (38-126); Aspartate Aminotransferase 48 IU/L (14-36); BUN Creatinine Ratio 19.8 (6-22); Bilirubin Total 0.5 mg/dL (0.2-1.3); Blood Urea Nitrogen 16 mg/dL (7-17); Carbon Dioxide 30 mmol/L (22-32); Chloride 99 mmol/L (98-107); Estimated Glomerular Filt Rate > 60.0 mL/min (>60); Globulin 4.2 g/dL (1.7-4.1); Glucose 112 mg/dL (70-100); HEMOLYSIS < 15 (0-50); Potassium 4.3 mmol/L (3.4-5.1); Sodium 138 mmol/L (137-145); Total Protein 8.5 g/dL (6.3-8.2)
[2019-12-12 18:55] LABS: Creatinine Urine Random 19.1 mg/dL
[2019-12-12 19:12] LABS: Microalbumin Urine Random < 0.6 mg/dL (0-1.6)
== END ==
PROVIDERS: PCP Student in an Organized Health Care Education/Training Program; Referring Provider Student in an Organized Health Care Education/Training Program; Visit Provider Student in an Organized Health Care Education/Training Program
DX: E11.9 Type 2 diabetes mellitus without complications (principal); K75.4 Autoimmune hepatitis; R80.9 Proteinuria, unspecified
CPT/HCPCS: 36415; 80053; 82043; 82570; 83036

== ENCOUNTER → 2019-12-17 13:54 | Outpatient (CLI) | payer OTHER, MEDICAID, SELFPAY ==
--- NOTE | 2019-12-17 14:56 | DIET.PN ---
Diabetes Follow Up Assess: Mrs. Talbot was seen for her 3 mo follow up visit. New labs show great improvement in HbgA1c and random glucose. She continues with her weight loss journey by continuing to increase her daily exercise, avoid sweets and starches, and find ways to manage stress. Labs: A1c: 5.2 Meds: metformin 1000mg BID ; discontinued glipizide Dietary changes: cut out all sweets, starches and alcohol. Enjoying more vegetables and foods for their original flavor Ht: 65in Wt: 191lb (8# loss) BMI: 31.8 Nutrition DX: Altered nutrition related laboratory values related to impaired glucose metabolism, lack of previous exposure to nutrition information as evidenced by pt report, diagnosis of diabetes, previous diet high in refined carbohydrates. Intervention: 1. Completed follow up assessment. Reviewed barriers to care. 2. Reviewed new labs and importance of continued BG monitoring. 3. Reviewed SMART goals and made modifications where appropriate including wt management, activity, and A1c goals. 4. Discussed plan for ongoing support. Provided information for continued support and success. SMART goals: 1. Pt will continue toward goal of 50lb weight loss with improved dietary habits and increased daily exercise. Monitor/Evaluate: Pt will follow up in 3 mo to discuss new labs and barriers to care.
== END ==
PROVIDERS: PCP Student in an Organized Health Care Education/Training Program; Referring Provider Student in an Organized Health Care Education/Training Program; Visit Provider Student in an Organized Health Care Education/Training Program
DX: E11.9 Type 2 diabetes mellitus without complications (principal); Z71.3 Dietary counseling and surveillance; E66.9 Obesity, unspecified; Z68.31 Body mass index [BMI] 31.0-31.9, adult; Z79.84 Long term (current) use of oral hypoglycemic drugs
CPT/HCPCS: G0109

== ENCOUNTER → 2020-03-22 17:01 | Outpatient (CLI) | payer OTHER, SELFPAY ==
[2020-03-22 17:34] LABS: Alanine Aminotransferase 41 IU/L (<35); Albumin 4.4 g/dL (3.5-5.0); Albumin Globulin Ratio 1.3 (1.0-2.8); Alkaline Phosphatase 131 U/L (38-126); Aspartate Aminotransferase 42 IU/L (14-36); Bilirubin Total 0.3 mg/dL (0.2-1.3); Bilirubin Unconjugated 0.4 mg/dL (0.0-1.1); Globulin 3.5 g/dL (1.7-4.1); HEMOLYSIS < 15 (0-50); Total Protein 7.9 g/dL (6.3-8.2)
[2020-03-22 17:36] LABS: Hemoglobin A1C% w Est Avg Glu 5.3 % (4.0-6.0)
== END ==
PROVIDERS: PCP Student in an Organized Health Care Education/Training Program; Referring Provider Student in an Organized Health Care Education/Training Program; Visit Provider Student in an Organized Health Care Education/Training Program
DX: E11.9 Type 2 diabetes mellitus without complications (principal); R79.89 Other specified abnormal findings of blood chemistry
CPT/HCPCS: 36415; 80076; 83036

== ENCOUNTER → 2020-06-03 11:53 | Outpatient (CLI) | payer OTHER, SELFPAY ==
[2020-06-03] MEDS: COVID-19 VACC #1, MRNA(MOD) 100 MCG/0.5 ML VIAL IM (12:02)
== END ==
PROVIDERS: PCP Student in an Organized Health Care Education/Training Program; Visit Provider Internal Medicine
DX: Z23 Encounter for immunization (principal)
CPT/HCPCS: 0011A; 91301

== ENCOUNTER → 2020-07-01 11:55 | Outpatient (CLI) | payer OTHER, SELFPAY ==
[2020-07-01] MEDS: COVID-19 VACC #2, MRNA(MOD) 100 MCG/0.5 ML VIAL IM (11:58)
== END ==
PROVIDERS: PCP Student in an Organized Health Care Education/Training Program; Visit Provider Internal Medicine
DX: Z23 Encounter for immunization (principal)
CPT/HCPCS: 0012A; 91301

== ENCOUNTER → 2020-10-21 08:46 | Outpatient (CLI) | payer OTHER, SELFPAY ==
[2020-10-21 09:20] LABS: Hemoglobin A1C% w Est Avg Glu 4.9 % (4.0-6.0)
[2020-10-21 09:27] LABS: Alanine Aminotransferase 39 IU/L (<35); Albumin 4.1 g/dL (3.5-5.0); Albumin Globulin Ratio 1.2 (1.0-2.8); Alkaline Phosphatase 117 U/L (38-126); Aspartate Aminotransferase 41 IU/L (14-36); Bilirubin Total 0.5 mg/dL (0.2-1.3); Bilirubin Unconjugated 0.4 mg/dL (0.0-1.1); Globulin 3.3 g/dL (1.7-4.1); HEMOLYSIS < 15 (0-50); Total Protein 7.4 g/dL (6.3-8.2)
== END ==
PROVIDERS: PCP Student in an Organized Health Care Education/Training Program; Referring Provider Student in an Organized Health Care Education/Training Program; Visit Provider Student in an Organized Health Care Education/Training Program
DX: K75.4 Autoimmune hepatitis (principal); E11.9 Type 2 diabetes mellitus without complications
CPT/HCPCS: 36415; 80076; 83036

== ENCOUNTER → 2020-12-09 16:11 | Outpatient (CLI) | payer OTHER, SELFPAY ==
[2020-12-13 08:57] LABS: Fecal Immunochemical Test Negative (Negative)
== END ==
PROVIDERS: PCP Student in an Organized Health Care Education/Training Program; Referring Provider Student in an Organized Health Care Education/Training Program; Visit Provider Student in an Organized Health Care Education/Training Program
DX: Z12.11 Encounter for screening for malignant neoplasm of colon (principal)
CPT/HCPCS: 82274

== ENCOUNTER 2021-05-25 10:10 | Emergency (ER) | payer OTHER, SELFPAY ==
[2021-05-25 10:13] VITALS: BP 147/83; PULSE 77; RESP 14; TEMP 36.9; O2SAT 98; BMI 31.1
--- NOTE | 2021-05-25 10:17 | DI.RAD.S_ITS ---
PROCEDURE: XR SHOULDER LT MIN 2V INDICATIONS: shoulder pain TECHNIQUE: 3 views of the shoulder were acquired. COMPARISON: [facility], , SHOULDER MINIMUM 2VIEW RIGHT, 05/26/2016, 13:29. FINDINGS: Bones: No fractures or dislocations. No suspicious bony lesions. Visualized ribs appear intact. Moderate to severe acromioclavicular degenerative narrowing. Small periarticular osteophytes. Humeral head is slightly high-riding. Soft tissues: No suspicious soft tissue calcifications. IMPRESSION: Moderate to severe acromioclavicular degenerative narrowing. High riding appearance of the humeral head, which can be indicative of rotator cuff pathology. Dictated by: Mariana Monge M.D. on 05/25/2021 at 10:36 Approved by: Mariana Monge M.D. on 05/25/2021 at 10:37
--- NOTE | 2021-05-25 10:44 | ED_ITS ---
HPI - Extremity Problem General Chief complaint: Extremity Problem,Nontraumatic Stated complaint: acute left shoulder & neck pain, headache Time Seen by Provider: 05/25/21 10:21 Source: patient Mode of arrival: Ambulatory Limitations: no limitations History of Present Illness HPI Narrative: Patient is a 61-year-old female who has had left shoulder discomfort for the past several weeks/months. She states that is also causing her neck pain and also causing her headache. There was no specific incident that caused the symptoms. She woke up 1 morning with the discomfort. States she is having some weakness in that arm. Also having pain in the arm specifically over the shoulder. She has not seen any provider for this prior to this examination Related Data Home Medications Medication Instructions Recorded Confirmed ASCORBIC ACID (VITAMIN C) 3,000 mg PO Q DAY #0 09/01/19 11/25/20 Women's Daily Care Probiotic 40 PO 09/01/19 11/25/20 billion CFU cholecalciferol (vitamin D3) 50 100 mcg PO #0 cap 09/01/19 11/25/20 mcg (2,000 unit) capsule (Vitamin D3) cyanocobalamin (vitamin B-12) 5,000 mcg PO #0 tab 09/01/19 11/25/20 1,000 mcg tablet,extended release glucosamine 750 [id number] 2 tab PO DAILY 09/01/19 11/25/20 no1 644 mg-C 30 mg-kain 1 mg tablet (Osteo Bi-Flex Triple Strength) [id number]-[id number]-innwfjg-folic 1 tab PO DAILY 09/01/19 11/25/20 acid 400 mcg-vit K1 20 mcg tablet (One-A-Day Women's 50 Plus) aspirin 81 mg tablet,delayed 81 mg PO DAILY 09/03/19 11/25/20 release Previous Rx's Medication Instructions Recorded lancets 30 gauge #100 each 11/14/19 acyclovir 800 mg tablet 800 mg PO DAILY #90 tab 02/14/21 lisinopril 20 mg tablet 20 mg PO QDAY #90 tab 02/14/21 metformin 1,000 mg tablet 1,000 mg PO DAILY #30 tab 05/17/21 meclizine 25 mg tablet 25 mg PO BID PRN #10 tab 05/25/21 zolpidem 10 mg tablet 10 mg PO BEDTIME PRN #30 tab 05/25/21 Allergies Allergy/AdvReac Type Severity Reaction Status Date / Time acetaminophen [From TYLOX] Allergy Severe itchy,rash,trouble Verified 05/25/21 10:22 breathing trazodone Allergy Intermediate Hives Verified 05/25/21 10:22 hydromorphone [From Dilaudid] Allergy Mild itchy Verified 05/25/21 10:22 codeine [CODEINE] Allergy Unknown hives Verified 05/25/21 10:22 hydrocodone [HYDROCODONE] Allergy Unknown hives Verified 05/25/21 10:22 prochlorperazine Allergy Unknown hallucinati Verified 05/25/21 10:22 [From COMPAZINE] ons sumatriptan [From IMITREX] Allergy Unknown rash and Verified 05/25/21 10:22 swelling aspirin Allergy Verified 05/25/21 10:22 caffeine [From Cafergot] Allergy Verified 05/25/21 10:22 Penicillins Allergy Verified 05/25/21 10:22 ergotamine [ERGOTAMINE] AdvReac Unknown paralyzining Verified 05/25/21 10:22 feeling from the waste down oxycodone [From PERCOCET] AdvReac Unknown ulcers Verified 05/25/21 10:22 Blue Dye Allergy Mild Hives Uncoded 11/25/20 11:35 [id number] Allergy Unknown rash at Uncoded 11/25/20 11:35 injection site Review of Systems Constitutional Constitutional: Reports headache(s) ENT Ears, Nose, Mouth, and Throat: Reports headache(s) Musculoskeletal Musculoskeletal: Reports system reviewed and no additional complaints, except as documented Integumentary/Breasts Skin/Breast: Reports system reviewed and no additional complaints, except as documented Neurologic Neurologic: Reports headache(s) Hematologic/Lymphatic On Anticoagulants: No Patient History Medical History Autoimmune hepatitis Carpal tunnel syndrome (~2004) Chicken pox (~1963) Fibroids (~2006) Herpes (~1997) Hypertension (~1999) Migraines Osteoarthritis (~2006) Ovarian cyst (~2006) Shoulder pain (~2012) Skin rash (~2005) Surgical History Anesthesia History of liver biopsy (~2001) History of release of tendon (~1989) History of surgery (~2003) History of tonsillectomy (~1963) Status post laparoscopic cholecystectomy (~1986) Status post tubal ligation (~2006) Family History Brother Age: 65 Hypertension Hyperlipidemia Father Hypertension Hyperlipidemia Brother Cancer Brother Cancer Mother No problems noted. Social History Smoking Status: Never smoker eating out: rarely or never Type(s) of exercise: walking Smoking Status: Never smoker alcohol intake frequency: holidays/special occasions only Substance Use Type: does not use Exam Initial Vital Signs Initial Vital Signs: Vital Signs Temperature 98.5 F 05/25/21 10:13 Pulse Rate 77 05/25/21 10:13 Respiratory Rate 14 05/25/21 10:13 Blood Pressure 147/83 H 05/25/21 10:13 Pulse Oximetry 98 05/25/21 10:13 HENMT Head: normal to inspection and normocephalic Resp Effort & Inspection: normal respiratory effort Cardio Rate: regular rate Skin General: no rashes or lesions noted Neuro General: patient alert, patient awake and moves all extremities Extrem Other: Patient with tenderness to palpation throughout the left shoulder specifically over the AC joint and lateral deltoid. Course Orders Ordered: ED Orders 05/25/21 10:17 XR shoulder LT min 2V Stat Vital Signs Vital signs: Vital Signs - 8 hr 05/25/21 10:13 05/25/21 11:13 Temperature 98.5 F Pulse Rate 77 75 Respiratory Rate 14 18 Blood Pressure 147/83 H 139/78 Pulse Oximetry 98 95 MDM - Extremity (Nontraumatic) Imaging Data Extremity x-ray #1: Radiologist's Impression: [address] [address] XRay Report Signed Patient: Nadeen Talbot MR#: [id number] : 1960 Acct:[id number] Age/Sex: 61 / F Date of Service: 05/25/21 Loc: ED Accession Number: [id number] ?? Procedure: XR shoulder LT min 2V Ordering Provider: Willian Nichols D.O. PROCEDURE:? XR SHOULDER LT MIN 2V ? INDICATIONS:? shoulder pain ? TECHNIQUE:? 3 views of the shoulder were acquired.? ? COMPARISON:? [facility], CR, SHOULDER MINIMUM 2VIEW RIGHT, 05/26/2016, 13:29. ? FINDINGS:? ? Bones:? No fractures or dislocations.? No suspicious bony lesions.? Visualized ribs appear intact.? Moderate to severe acromioclavicular degenerative narrowing.? Small periarticular osteophytes.? Humeral head is slightly high-riding. ? Soft tissues:? No suspicious soft tissue calcifications.? ? IMPRESSION:? ? Moderate to severe acromioclavicular degenerative narrowing. ? High riding appearance of the humeral head, which can be indicative of rotator cuff pathology. ? ? ? Dictated by: Mariana Monge M.D. on 05/25/2021 at 10:36 ? ? Approved by: Mariana Monge M.D. on 05/25/2021 at 10:37?? MDM Narrative Medical decision making narrative: X-ray concerning for rotator cuff pathology and I do suspect that this is a strong possibility as well. This could also be impingement syndrome or arthritis or combination of all 3. Patient does need follow-up with primary doctor for referral to see Physical therapy. Potentially could see orthopedic surgery however I feel that physical therapy would most likely be the 1st step. She is given return precautions. She expressed understanding and agreement. Discharge Plan Departure Patient Disposition: Home Clinical Impression: Left shoulder pain Instructions: How To Perform RICE (Rest, Ice, Compress, Elevate), DI for Shoul rose Pain, Rotator Cuff Injury Activity Restrictions/Additional Instructions: Continue to take all of your medications as directed. I do recommend that you continue taking Tylenol as directed on the bottle and also ibuprofen/Motrin. Be sure to take this medication with some food is a can upset your stomach. Keep your appointment she has scheduled with your primary doctor is your most likely going to need physical therapy. Prescriptions: New meclizine 25 mg tablet 25 mg PO BID PRN (Reason: motion sickness) Qty: 10 0RF No Action cyanocobalamin (vitamin B-12) 1,000 mcg tablet extended release 5,000 mcg PO Qty: 0 0RF ASCORBIC ACID (VITAMIN C) 3,000 mg PO Q DAY Qty: 0 0RF cholecalciferol (vitamin D3) [Vitamin D3] 50 mcg (2,000 unit) capsule 100 mcg PO Qty: 0 0RF (DME) lancets 30 gauge misc See Rx Instructions .ROUTE .MEDSUPPLY Qty: 100 3RF Rx Instructions: As directed acyclovir 800 mg tablet 800 mg PO DAILY Qty: 90 1RF lisinopril 20 mg tablet 20 mg PO QDAY Qty: 90 1RF metformin 1,000 mg tablet 1,000 mg PO DAILY Qty: 30 0RF Rx Instructions: DUE FOR DIABETES FOLLOW UP W/PCP PRIOR TO END OF RX/FUTURE FILLS. PLEASE CALL TO SCHEDULE. THANKS 05/17/21 zolpidem 10 mg tablet 10 mg PO BEDTIME PRN (Reason: insomnia) Qty: 30 0RF One-A-Day Women's 50 Plus 400-20 mcg tablet 1 tab PO DAILY 0RF Osteo Bi-Flex Triple Strength 750 mg-644 mg- 30 mg-1 mg tablet 2 tab PO DAILY 0RF Rx Instructions: give with meal/snack Women's Daily Care Probiotic 40 billion CFU PO 0RF aspirin 81 mg tablet,delayed release (DR/EC) 81 mg PO DAILY 0RF Referrals: Trevor Bellamy MD [Primary Care Provider] - Roc Cruz MD [Physician] -
[2021-05-25 11:13] VITALS: BP 139/78; PULSE 75; RESP 18; O2SAT 95
== END 2021-05-25 11:13 | disposition home or self-care (01) ==
PROVIDERS: Emergency Provider Emergency Medicine; PCP Student in an Organized Health Care Education/Training Program
DX: M25.512 Pain in left shoulder (principal)
CPT/HCPCS: 73030; 99281; 99283

== ENCOUNTER → 2021-06-02 15:50 | Outpatient (CLI) | payer OTHER, SELFPAY | PROVIDERS: Family Provider Student in an Organized Health Care Education/Training Program; PCP Student in an Organized Health Care Education/Training Program; Visit Provider Nurse Practitioner Critical Care Medicine | DX: N39.0 Urinary tract infection, site not specified (principal) | CPT/HCPCS: 87077; 87086; 87186 ==

== ENCOUNTER → 2021-06-21 16:10 | Outpatient (CLI) | payer OTHER, SELFPAY ==
--- NOTE | 2021-06-21 16:11 | DI.MRI.S_ITS ---
PROCEDURE: MR SHOULDER LT WO CON INDICATIONS: Left shoulder injury; suspect rotator cuff path TECHNIQUE: Noncontrast oblique coronal T2 fast spin echo with fat saturation, oblique sagittal T1 spin echo and T2 fast spin echo with fat saturation, axial T1 spin echo and T2 fast spin echo with fat saturation through the shoulder. COMPARISON: [facility], MR, SHOULDER WITHOUT CONTRAST, 10/29/2012, 13:23. FINDINGS: Image quality: Excellent. Rotator cuff: Tendinosis and low-grade articular and bursal surface partial thickness tear involving anterior to mid fibers of distal supraspinatus at its insertion on the humeral head extending to musculotendinous junction. Distal subscapularis tendinosis and low-grade intrasubstance partial-thickness tear is seen. Distal infraspinatus tendon is intact. No full-thickness rotator cuff tendon rupture. Sagittal images demonstrate very mild supraspinatus muscle atrophy. Bones and bursae: No bone marrow contusions or fractures. Moderate acromioclavicular joint osteoarthritic changes are seen with downward osteophyte formation depressing the musculotendinous junction of supraspinatus. Mild to moderate glenohumeral joint osteoarthritic changes are seen. The acromion demonstrates conventional anatomy, without an os acromiale. Small amount of subacromial subdeltoid bursal fluid is present. Capsule and soft tissues: There is signal abnormality and contour irregularity involving superior anterior labrum at 12 to 1 o'clock position. The long head of the biceps tendon demonstrates normal location and morphology. The rotator interval appears normal, without fibrosis. The coracohumeral ligament is normal in thickness. IMPRESSION: 1. Tendinosis and low-grade articular and bursal surface partial thickness tear involving distal supraspinatus extending to musculotendinous junction. Mild supraspinatus muscle atrophy. 2. Tendinosis and low-grade intrasubstance partial-thickness tear involving distal subscapularis. 3. Moderate acromioclavicular joint osteoarthritis and mild to moderate glenohumeral joint osteoarthritis. Small joint effusion and subacromial subdeltoid bursal fluid. 4. Finding is suggestive of superior anterior labral tear at 12 to 1 o'clock position. Dictated by: Alli Dillard M.D. on 06/22/2021 at 9:16 Approved by: Alli Dillard M.D. on 06/22/2021 at 9:32
== END ==
PROVIDERS: Family Provider Student in an Organized Health Care Education/Training Program; PCP Student in an Organized Health Care Education/Training Program; Referring Provider Student in an Organized Health Care Education/Training Program; Visit Provider Student in an Organized Health Care Education/Training Program
DX: S46.012A Strain of muscle(s) and tendon(s) of the rotator cuff of left shoulder, initial encounter (principal); M19.012 Primary osteoarthritis, left shoulder; M25.412 Effusion, left shoulder; X58.XXXA Exposure to other specified factors, initial encounter
CPT/HCPCS: 73221

== ENCOUNTER 2021-07-06 14:30 | Outpatient (RCR) | payer OTHER, SELFPAY ==
--- NOTE | 2021-06-07 17:08 | PT.OIE ---
Current Diagnoses Pain in left shoulder (06/07/21) Cervicalgia (06/07/21) Abnormal posture (06/07/21) Weakness (06/07/21) Past Medical History (Last Reviewed 06/02/21 @ 16:38 by Jody Parish [facility]) Autoimmune hepatitis Carpal tunnel syndrome (~2004) Chicken pox (~1963) Fibroids (~2006) Herpes (~1997) History of liver biopsy (~2001) History of release of tendon (~1989) History of surgery (~2003) Hypertension (~1999) Migraines Osteoarthritis (~2006) Ovarian cyst (~2006) Shoulder pain (~2012) Skin rash (~2005) Past Surgical History (Last Reviewed 06/02/21 @ 16:38 by BERNARDINO Reich) Anesthesia History of liver biopsy (~2001) History of release of tendon (~1989) History of surgery (~2003) History of tonsillectomy (~1963) Status post laparoscopic cholecystectomy (~1986) Status post tubal ligation (~2006) Visit Care Team Role Provider Type Trevor Bellamy MD Attending Provider Physician Family Provider Primary Care Provider Referring Provider Specialty: Internal Medicine Address: [address] [place] [address], [address], [facility] Email: [email or web address] Physical Therapy Initial Evaluation PT-OP-A Visit Information Start: 06/07/21 07:38 Freq: Status: Active Protocol: Document 06/07/21 13:45 [facility] (Rec: 06/07/21 14:35 [facility] [id number]) Out-Patient Physical Therapy Visit Information Visit Information Visit Type Initial Evaluation Visit Start Time 13:45 Visit Stop Time 14:40 Total Visit Minutes 55 Visit Number 1 Number of HISTOLOGICAL ILLUSTRATOR Visits 0 PT-OP-B Current Condition Start: 06/07/21 07:38 Freq: Status: Active Protocol: Document 06/07/21 13:45 [facility] (Rec: 06/07/21 14:35 [facility] [id number]) Current Condition History of Current Condition Onset Date Winter worsening 2 weeks ago Current Complaints L shoulder pain & neck pain History of Current Condition Pt reports she had to go to ER d/t L shoulder pain that went into her neck and caused a DAMON . She had surgery in neck in 2006 d/t Corpectomy at C[facility]. Neck is not constant and depends on what she does. Normally only bothers her with a lot of lifting and overhead activity. Surgery was d/t a fall at home. Fall was d/t heat exhaustion and got dizzy and fell face first into railing. When she awoke both hands and arms were numb and she waited 24 hours before getting checked out. Sondra was admitted and sent to [facility] and had pressure on spinal cord and had to have steriods for a week then surgery then another week of hospital stay. Pt reports she is R handed. L shoulder started hurting in winter. It was really painful post and MD said it was really tight and pt did take mm relaxors as needed mostly for sleep. Pt went to ER 05/25 after rolling over in bed and has been constant in shoulder and arm since then. She does not sleep through the night anymore because anytime sondra rolls onto that shoulder, she wakes up. She can't tuck in her shirts, is now using front clask bra and dressing is very painful. No other treatments. 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 She has a new desk now where she can work straight on and answers the phone w/her R side . Pt walks her 90lb dog and she walks only w/leash in R arm. Unsure what caused pain to start. 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 Normally would be doing stuff to wrok on car but right now is avoiding that stuff. Pt has no clue what caused pain. Pt reports she used to get migranes but they stopped about 20 years ago. They strated at age 21 goran. Prior Treatments and Tests Xray IMPRESSION: Moderate to severe acromioclavicular degenerative narrowing. Treatment Goals Patient/Caregiver Goals Be able to do all the lifting, climbing ladder to be able to work as car crew, be able to get dressed and do hair w/o pain, not have pain constantly anymore, be able to sleep through the night. PT-OP-C Subjective Start: 06/07/21 07:38 Freq: Status: Active Protocol: Document 06/07/21 13:45 [facility] (Rec: 06/07/21 14:35 [facility] [id number]) Patient Questionnaires Quick Dash- Upper Extremity Quick Dash UE Score 43.18 OP-PT Pain Assessment Location L shoulder Pain Location Details ant and post & lat shoulder & lat brachium Scale Used rest:6/10 worst: 10/10 Description Dull,Sharp,Tightness,Throbbing ,With Movement Frequency Constant Pain Duration can take 45 min to go back down to 6/10 Radiating Location down arm into forearm (med & ant) Pain Aggravating Factors Changing Position,ADL's, Lifting Other Pain Aggravating Factors reaching Other Pain Alleviating Factors ice/heat/creams do not help; supporting UE can help some PT-OP-F Manual Assessment Start: 06/07/21 07:38 Freq: Status: Active Protocol: Document 06/07/21 13:45 [facility] (Rec: 06/07/21 14:35 [id number] Manual Assessments Soft Tissue Assessment Soft Tissue Mobility Assessment Tenderness to palpation even w /light tough throughout L shoulder PT-OP-J Posture/Palpation/Skin Start: 06/07/21 07:38 Freq: Status: Active Protocol: Document 06/07/21 13:45 [facility] (Rec: 06/07/21 14:35 [facility] [id number]) Posture Evaluation Vic Postural Classification System Elbow Flexion Test 0 Comments Posture Comments fwd shoulders and neck, fwd rounded & add shoulder blades PT-OP-K Range of Motion Start: 06/07/21 07:38 Freq: Status: Active Protocol: Document 06/07/21 13:45 [facility] (Rec: 06/07/21 14:35 [facility] [id number]) Cervical Spine Range of Motion Cervical Spine Active Degrees Flexion 47 Extension 36 Rotation Left 55 Rotation Right 56 Lateral Flexion Left 35 Lateral Flexion Right 18 Comments tight w/SB L, pain w/R, pain in shoulder after neck ROM Shoulder Goniometric Range of Motion Shoulder Left Passive Flexion 99 Abduction 60 External Rotation at 45 degrees 40 Abduction Internal Rotation 28 Right Active Flexion 150 Extension 62 Abduction 160 External Rotation at 0 degrees Abduction 60 Internal Rotation Behind Back (text) T5 Left Active Flexion 92 Extension 22 Abduction 68 External Rotation at 0 degrees Abduction 32 Internal Rotation Behind Back (text) lat L hip PT-OP-L Special Tests Start: 06/07/21 07:38 Freq: Status: Active Protocol: Document 06/07/21 13:45 [facility] (Rec: 06/07/21 14:35 [facility] [id number]) Special Tests Cervical Spine Special Tests Spurling's Test Test Results neg B Vertebral Artery Test Results neg R, funny feeling behind eyes L Alar Ligament Test Results neg Shoulder Special Tests Sulcus Test Results neg Empty Can Test Results positive L AC Joint Compression Test Results positive L Neural Special Tests- Upper Body Radial Nerve Tension Test Results positive L Median Nerve Tension Test Results painful but unsure if neural tension vs position on L Comments neg r Ulnar Nerve Tension Test Results painful but does not appear to be neural tension L PT-OP-M Strength Start: 06/07/21 07:38 Freq: Status: Active Protocol: Document 06/07/21 13:45 [facility] (Rec: 06/07/21 14:35 [facility] [id number]) Shoulder Strength Shoulder Manual Muscle Testing Right Flexion 4+ Good+ Extension 4+ Good+ Abduction (C5) 4+ Good+ External Rotation 4+ Good+ Internal Rotation 5 Normal Left Flexion 3 Fair Extension 3- Fair- Abduction (C5) 3- Fair- External Rotation 3+ Fair+ Internal Rotation 3+ Fair+ Elbow/Forearm Strength Elbow and Forearm Manual Muscle Testing Right Flexion (C6) 5 Normal Extension (C7) 5 Normal Pronation 5 Normal Supination 5 Normal Left Flexion (C6) 3+ Fair+ Extension (C7) 4- Good- Pronation 4- Good- Supination 3+ Fair+ Comments pain w/supination PT-OP-R Modalities Start: 06/07/21 07:38 Freq: Status: Active Protocol: Document 06/07/21 13:45 [facility] (Rec: 06/07/21 14:35 [facility] [id number]) Hot Pack/Cold Pack Treatment Cold Pack Location L shoulder Patient Position Hooklying Treatment Duration (minutes) 10 PT-OP-T Assessment and Plan Start: 06/07/21 07:38 Freq: Status: Active Protocol: Document 06/07/21 13:45 [facility] (Rec: 06/07/21 14:35 [facility] [id number]) Physical Therapy Assessment Rehab Potential Rehabilitation Potential Good Evaluation Complexity Number of Personal Factors/Comorbidities 3 or More Number of Body Systems Impaired 4 or More Clinical Presentation at Evaluation Evolving Impairments Impairments Activity Tolerance, Coordination,Functional Activities,Functional Mobility ,Pain,Posture,ROM,Soft Tissue Mobility,Strength Goals quick dash Impairment 43.18 Short Term Goal (STG) Pt will score no higher than 27 on quick dash to show improved functional ability. STG Duration 07/22 Art Specialist Goal (LTG) Pt will score no higher than 7 on quick dash to show improved functional ability. LTG Duration 09/06/21 activities Short Term Goal (STG) Pt will be able to sleep through the night w/o inc pain . 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 LTG Duration 09/06/21 strength Short Term Goal (STG) pt will be indep w/HEP for strength, ROM and pain management. 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 LTG Duration 09/06/21 ROM Short Term Goal (STG) Pt will improve AROM flex to 120 deg and AROM abd to 95 deg to allow for greater ease for overhead activities. STG Duration 07/22/21 Prison Goal (LTG) Pt will have full cervical and L shoulder ROM as compared to R w/o pain to allow full return to ADLs w/o pain. LTG Duration 09/06/21 Assessment Summary Assessment Pt presents w/main complaint of significant L shoulder pain that has gotten worse since starting this winter w/unknown cause. Pain does travel down LUE into forearm, but pt denies numbness or tingling. She had a cervical injury in 2006 w/subsquent C6 Corpectomy . Pt reports she has up/down neck pain since then but it has been managable, and neck has some soreness now, but is not much more than her normal soreness since this injury. She has very limited shoulder ROM passively w/empty end feels and actively d/t pain along w/limited strength. She has impaired posture and dec scapular stability. She has inability to do typical ADLs, work or do rec activities without inc pain.S he would benefit from skilled PT to address her deficits and return her to typical functioning w/o inc pain. Physical Therapy Plan Frequency and Duration Frequency of Treatment 1-2x/week Duration of Treatment 2 months Plan of Care Start Date 06/07/21 Plan of Care End Date 09/06/21 Therapeutic Interventions Therapeutic Interventions Aquatic Therapy,Gait Training, Home Exercise Program,Joint Mobilizations,Manual Therapy, Neuromuscular Re-education, Patient/Caregiver Education, Self-Care/Home Management,Soft Tissue Mobilization,Taping, Therapeutic Activities, Therapeutic Exercises Modalities Cold Pack/Ice Massage,Electric Stimulation,Hot Packs, Infrared Therapy,Iontophoresis ,Traction- Mechanical, Ultrasound Next Visit Focus/Plan Next Note Type Treatment Note Next Visit Plan AAROM exercises gentle for HEP , gentle STM to pec, scalenes, parascapular mm, PNF scap, scap mobs, tspine mobs as able
--- NOTE | 2021-06-07 17:08 | PT.OPPOC ---
Physical, Occupational & Speech Therapy At [facility] Current Diagnoses Pain in left shoulder (06/07/21) Cervicalgia (06/07/21) Abnormal posture (06/07/21) Weakness (06/07/21) Visit Care Team Role Provider Type Trevor Bellamy MD Attending Provider Physician Family Provider Primary Care Provider Referring Provider Specialty: Internal Medicine Address: [address] [place] [address], [address], [facility] Email: [email or web address] Plan Of Care PT-OP-T Assessment and Plan Start: 06/07/21 07:38 Freq: Status: Active Protocol: Document 06/07/21 13:45 [facility] (Rec: 06/07/21 14:35 [facility] [id number]) Physical Therapy Assessment Rehab Potential Rehabilitation Potential Good Evaluation Complexity Number of Personal Factors/Comorbidities 3 or More Number of Body Systems Impaired 4 or More Clinical Presentation at Evaluation Evolving Impairments Impairments Activity Tolerance, Coordination,Functional Activities,Functional Mobility ,Pain,Posture,ROM,Soft Tissue Mobility,Strength Goals quick dash Impairment 43.18 Short Term Goal (STG) Pt will score no higher than 27 on quick dash to show improved functional ability. STG Duration 07/22 Coffee Weigher Goal (LTG) Pt will score no higher than 7 on quick dash to show improved functional ability. LTG Duration 09/06/21 activities Short Term Goal (STG) Pt will be able to sleep through the night w/o inc pain . 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 LTG Duration 09/06/21 strength Short Term Goal (STG) pt will be indep w/HEP for strength, ROM and pain management. 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 LTG Duration 09/06/21 ROM Short Term Goal (STG) Pt will improve AROM flex to 120 deg and AROM abd to 95 deg to allow for greater ease for overhead activities. STG Duration 07/22/21 Penitentiary Goal (LTG) Pt will have full cervical and L shoulder ROM as compared to R w/o pain to allow full return to ADLs w/o pain. LTG Duration 09/06/21 Assessment Summary Assessment Pt presents w/main complaint of significant L shoulder pain that has gotten worse since starting this winter w/unknown cause. Pain does travel down LUE into forearm, but pt denies numbness or tingling. She had a cervical injury in 2006 w/subsquent C6 Corpectomy . Pt reports she has up/down neck pain since then but it has been managable, and neck has some soreness now, but is not much more than her normal soreness since this injury. She has very limited shoulder ROM passively w/empty end feels and actively d/t pain along w/limited strength. She has impaired posture and dec scapular stability. She has inability to do typical ADLs, work or do rec activities without inc pain.S he would benefit from skilled PT to address her deficits and return her to typical functioning w/o inc pain. Physical Therapy Plan Frequency and Duration Frequency of Treatment 1-2x/week Duration of Treatment 2 months Plan of Care Start Date 06/07/21 Plan of Care End Date 09/06/21 Therapeutic Interventions Therapeutic Interventions Aquatic Therapy,Gait Training, Home Exercise Program,Joint Mobilizations,Manual Therapy, Neuromuscular Re-education, Patient/Caregiver Education, Self-Care/Home Management,Soft Tissue Mobilization,Taping, Therapeutic Activities, Therapeutic Exercises Modalities Cold Pack/Ice Massage,Electric Stimulation,Hot Packs, Infrared Therapy,Iontophoresis ,Traction- Mechanical, Ultrasound Next Visit Focus/Plan Next Note Type Treatment Note Next Visit Plan AAROM exercises gentle for HEP , gentle STM to pec, scalenes, parascapular mm, PNF scap, scap mobs, tspine mobs as able Plan of Care Dates Plan of Care Start Date 06/07/21 Plan of Care End Date 09/06/21 Electronically Signed by: Lorraine Romero, PT 06/07/21 [id number] Please Sign and Return: I have reviewed this Plan of Care and certify that the skilled therapy services above are required to meet the patient?s needs. Physician Signature Date Printed Name and Credentials Clinical Instructor Signature Printed Name and Credentials
--- NOTE | 2021-06-09 17:10 | PT.OTN ---
Current Diagnoses Pain in left shoulder (06/09/21) Cervicalgia (06/09/21) Abnormal posture (06/09/21) Weakness (06/09/21) Physical Therapy Treatment Note PT-OP-A Visit Information Start: 06/07/21 07:38 Freq: Status: Active Protocol: Document 06/09/21 14:31 AW (Rec: 06/09/21 17:10 AW [id number]) Out-Patient Physical Therapy Visit Information Visit Information Visit Type Treatment Note Visit Start Time 14:30 Visit Stop Time 15:10 Total Visit Minutes 40 Number of ELECTRICAL ENGINEERING DIRECTOR Visits 0 Evaluation Information Evaluation Date 06/07/21 PT-OP-B Current Condition Start: 06/07/21 07:38 Freq: Status: Active Protocol: Document 06/07/21 13:45 LR (Rec: 06/07/21 14:35 [facility] [id number]) Current Condition History of Current Condition Onset Date Winter worsening 2 weeks ago Current Complaints L shoulder pain & neck pain History of Current Condition Pt reports she had to go to ER d/t L shoulder pain that went into her neck and caused a DAMON . She had surgery in neck in 2006 d/t Corpectomy at [facility]. Neck is not constant and depends on what she does. Normally only bothers her with a lot of lifting and overhead activity. Surgery was d/t a fall at home. Fall was d/t heat exhaustion and got dizzy and fell face first into railing. When she awoke both hands and arms were numb and she waited 24 hours before getting checked out. Sondra was admitted and sent to [place] and had pressure on spinal cord and had to have steriods for a week then surgery then another week of hospital stay. Pt reports she is R handed. L shoulder started hurting in winter. It was really painful post and MD said it was really tight and pt did take mm relaxors as needed mostly for sleep. Pt went to ER 05/25 after rolling over in bed and has been constant in shoulder and arm since then. She does not sleep through the night anymore because anytime sondra rolls onto that shoulder, she wakes up. She can't tuck in her shirts, is now using front clask bra and dressing is very painful. No other treatments. 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 She has a new desk now where she can work straight on and answers the phone w/her R side . Pt walks her 90lb dog and she walks only w/leash in R arm. Unsure what caused pain to start. 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 Normally would be doing stuff to wrok on car but right now is avoiding that stuff. Pt has no clue what caused pain. Pt reports she used to get migranes but they stopped about 20 years ago. They strated at age 21 goran. Prior Treatments and Tests Xray IMPRESSION: Moderate to severe acromioclavicular degenerative narrowing. Treatment Goals Patient/Caregiver Goals Be able to do all the lifting, climbing ladder to be able to work as car crew, be able to get dressed and do hair w/o pain, not have pain constantly anymore, be able to sleep through the night. PT-OP-C Subjective Start: 06/07/21 07:38 Freq: Status: Active Protocol: Document 06/09/21 14:31 AW (Rec: 06/09/21 17:10 AW [id number]) OP-PT Subjective Patient Comments Patient Comments I got sick to my stomach after the evaluation. Was nauseated all night from the pain. PT-OP-F Manual Assessment Start: 06/07/21 07:38 Freq: Status: Active Protocol: Document 06/07/21 13:45 [facility] (Rec: 06/07/21 14:35 [facility] [id number]) Manual Assessments Soft Tissue Assessment Soft Tissue Mobility Assessment Tenderness to palpation even w /light tough throughout L shoulder PT-OP-J Posture/Palpation/Skin Start: 06/07/21 07:38 Freq: Status: Active Protocol: Document 06/07/21 13:45 LR (Rec: 06/07/21 14:35 [facility] [id number]) Posture Evaluation Vic Postural Classification System Elbow Flexion Test 0 Comments Posture Comments fwd shoulders and neck, fwd rounded & add shoulder blades PT-OP-K Range of Motion Start: 06/07/21 07:38 Freq: Status: Active Protocol: Document 06/07/21 13:45 LR (Rec: 06/07/21 14:35 [facility] [id number]) Cervical Spine Range of Motion Cervical Spine Active Degrees Flexion 47 Extension 36 Rotation Left 55 Rotation Right 56 Lateral Flexion Left 35 Lateral Flexion Right 18 Comments tight w/SB L, pain w/R, pain in shoulder after neck ROM Shoulder Goniometric Range of Motion Shoulder Left Passive Flexion 99 Abduction 60 External Rotation at 45 degrees 40 Abduction Internal Rotation 28 Right Active Flexion 150 Extension 62 Abduction 160 External Rotation at 0 degrees Abduction 60 Internal Rotation Behind Back (text) T5 Left Active Flexion 92 Extension 22 Abduction 68 External Rotation at 0 degrees Abduction 32 Internal Rotation Behind Back (text) lat L hip PT-OP-L Special Tests Start: 06/07/21 07:38 Freq: Status: Active Protocol: Document 06/07/21 13:45 [facility] (Rec: 06/07/21 14:35 [facility] [id number]) Special Tests Cervical Spine Special Tests Spurling's Test Test Results neg B Vertebral Artery Test Results neg R, funny feeling behind eyes L Alar Ligament Test Results neg Shoulder Special Tests Sulcus Test Results neg Empty Can Test Results positive L AC Joint Compression Test Results positive L Neural Special Tests- Upper Body Radial Nerve Tension Test Results positive L Median Nerve Tension Test Results painful but unsure if neural tension vs position on L Comments neg r Ulnar Nerve Tension Test Results painful but does not appear to be neural tension L PT-OP-M Strength Start: 06/07/21 07:38 Freq: Status: Active Protocol: Document 06/07/21 13:45 [facility] (Rec: 06/07/21 14:35 [facility] [id number]) Shoulder Strength Shoulder Manual Muscle Testing Right Flexion 4+ Good+ Extension 4+ Good+ Abduction (C5) 4+ Good+ External Rotation 4+ Good+ Internal Rotation 5 Normal Left Flexion 3 Fair Extension 3- Fair- Abduction (C5) 3- Fair- External Rotation 3+ Fair+ Internal Rotation 3+ Fair+ Elbow/Forearm Strength Elbow and Forearm Manual Muscle Testing Right Flexion (C6) 5 Normal Extension (C7) 5 Normal Pronation 5 Normal Supination 5 Normal Left Flexion (C6) 3+ Fair+ Extension (C7) 4- Good- Pronation 4- Good- Supination 3+ Fair+ Comments pain w/supination PT-OP-Q Treatments Start: 06/07/21 07:38 Freq: Status: Active Protocol: Document 06/09/21 14:31 AW (Rec: 06/09/21 17:10 AW [id number]) Therapeutic Exercises Sidelying Exercises PNF scap Sidelying Exercise Name PNF scap - anterior elevation/ posterior depression Side left Comments passive elevation, reports no pain w/ active depression Sitting Exercises scapular retraction Sitting Exercise Name scapular retraction, depression Side bilateral Comments good, pain-free ROM; HEP Manual Therapy Treatment Soft Tissue Mobilization L pec, biceps, periscapular Body Location L pec, scalenes, biceps, periscapular Mobilization Type Strumming Intensity/Depth Superficial Body Position Hooklying Comments Pt tolerated only superficial pressure. Highly reactive. Joint Mobilizations scapulothoracic Joint scapulothoracic Comments grade I-II mobs in sidelying Manual Techniques PROM left shoulder Type PROM left shoulder Body Position supine with arm supported Comments Pt was least guarded in rotation, increased guarding in abduction. Long axis distraction and oscillations vaguely helpful. PT-OP-R Modalities Start: 06/07/21 07:38 Freq: Status: Active Protocol: Document 06/07/21 13:45 LR (Rec: 06/07/21 14:35 [facility] [id number]) Hot Pack/Cold Pack Treatment Cold Pack Location L shoulder Patient Position Hooklying Treatment Duration (minutes) 10 PT-OP-T Assessment and Plan Start: 06/07/21 07:38 Freq: Status: Active Protocol: Document 06/09/21 14:31 AW (Rec: 06/09/21 17:10 AW [id number]) Physical Therapy Assessment Goals quick dash Impairment 43.18 Short Term Goal (STG) Pt will score no higher than 27 on quick dash to show improved functional ability. STG Duration 07/22 Penitentiary Goal (LTG) Pt will score no higher than 7 on quick dash to show improved functional ability. LTG Duration 09/06/21 activities Short Term Goal (STG) Pt will be able to sleep through the night w/o inc pain . STG Duration 07/22/21 Penitentiary Goal (LTG) Pt will be able to work, walk dog, particiapte in ADLs and work as crew for racing w/o inc pain. LTG Duration 09/06/21 strength Short Term Goal (STG) pt will be indep w/HEP for strength, ROM and pain management. 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 LTG Duration 09/06/21 ROM Short Term Goal (STG) Pt will improve AROM flex to 120 deg and AROM abd to 95 deg to allow for greater ease for overhead activities. STG Duration 07/22/21 Penitentiary Goal (LTG) Pt will have full cervical and L shoulder ROM as compared to R w/o pain to allow full return to ADLs w/o pain. LTG Duration 09/06/21 Assessment Summary Assessment Nadeen was able to relax for PROM and STM left shoulder complex with proper support and reassurance. She was able to perform scapular retraction in sidelying vs PT resistance and in sitting. Will consider AAROM or table slides next visit. Pt may benefit from training in diaphragmatic breathing to reduce neck/ shoulder strain and for physiologic quieting. Physical Therapy Plan Frequency and Duration Frequency of Treatment 1-2x/week Duration of Treatment 2 months Plan of Care Start Date 06/07/21 Plan of Care End Date 09/06/21 Therapeutic Interventions Therapeutic Interventions Aquatic Therapy,Gait Training, Home Exercise Program,Joint Mobilizations,Manual Therapy, Neuromuscular Re-education, Patient/Caregiver Education, Self-Care/Home Management,Soft Tissue Mobilization,Taping, Therapeutic Activities, Therapeutic Exercises Modalities Cold Pack/Ice Massage,Electric Stimulation,Hot Packs, Infrared Therapy,Iontophoresis ,Traction- Mechanical, Ultrasound Next Visit Focus/Plan Next Note Type Treatment Note Next Visit Plan AAROM exercises gentle for HEP , gentle STM to pec, scalenes, parascapular mm, PNF scap, scap mobs, tspine mobs as able . Consider table slides and diaphragmatic breathing.
--- NOTE | 2021-06-16 12:52 | PT.OTN ---
Current Diagnoses Pain in left shoulder (06/16/21) Cervicalgia (06/16/21) Abnormal posture (06/16/21) Weakness (06/16/21) Physical Therapy Treatment Note PT-OP-A Visit Information Start: 06/07/21 07:38 Freq: Status: Active Protocol: Document 06/16/21 11:06 AMB (Rec: 06/16/21 12:52 AMB [id number]) Out-Patient Physical Therapy Visit Information Visit Information Visit Type Treatment Note Visit Start Time 11:00 Visit Stop Time 11:45 Total Visit Minutes 45 Visit Number 3 PT-OP-B Current Condition Start: 06/07/21 07:38 Freq: Status: Active Protocol: Document 06/07/21 13:45 LR (Rec: 06/07/21 14:35 [facility] [id number]) Current Condition History of Current Condition Onset Date Winter worsening 2 weeks ago Current Complaints L shoulder pain & neck pain History of Current Condition Pt reports she had to go to ER d/t L shoulder pain that went into her neck and caused a DAMON . She had surgery in neck in 2006 d/t Corpectomy at [facility]. Neck is not constant and depends on what she does. Normally only bothers her with a lot of lifting and overhead activity. Surgery was d/t a fall at home. Fall was d/t heat exhaustion and got dizzy and fell face first into railing. When she awoke both hands and arms were numb and she waited 24 hours before getting checked out. Sondra was admitted and sent to [place] and had pressure on spinal cord and had to have steriods for a week then surgery then another week of hospital stay. Pt reports she is R handed. L shoulder started hurting in winter. It was really painful post and MD said it was really tight and pt did take mm relaxors as needed mostly for sleep. Pt went to ER 05/25 after rolling over in bed and has been constant in shoulder and arm since then. She does not sleep through the night anymore because anytime sondra rolls onto that shoulder, she wakes up. She can't tuck in her shirts, is now using front clask bra and dressing is very painful. No other treatments. 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 She has a new desk now where she can work straight on and answers the phone w/her R side . Pt walks her 90lb dog and she walks only w/leash in R arm. Unsure what caused pain to start. 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 Normally would be doing stuff to wrok on car but right now is avoiding that stuff. Pt has no clue what caused pain. Pt reports she used to get migranes but they stopped about 20 years ago. They strated at age 21 goran. Prior Treatments and Tests Xray IMPRESSION: Moderate to severe acromioclavicular degenerative narrowing. Treatment Goals Patient/Caregiver Goals Be able to do all the lifting, climbing ladder to be able to work as car crew, be able to get dressed and do hair w/o pain, not have pain constantly anymore, be able to sleep through the night. PT-OP-C Subjective Start: 06/07/21 07:38 Freq: Status: Active Protocol: Document 06/16/21 11:06 AMB (Rec: 06/16/21 12:52 AMB [id number]) OP-PT Subjective Patient Comments Patient Comments I was extra sore for a couple hours after last visit, but wasn't nauseous like after the first visit. PT-OP-F Manual Assessment Start: 06/07/21 07:38 Freq: Status: Active Protocol: Document 06/07/21 13:45 [facility] (Rec: 06/07/21 14:35 [facility] [id number]) Manual Assessments Soft Tissue Assessment Soft Tissue Mobility Assessment Tenderness to palpation even w /light tough throughout L shoulder PT-OP-J Posture/Palpation/Skin Start: 06/07/21 07:38 Freq: Status: Active Protocol: Document 06/07/21 13:45 [facility] (Rec: 06/07/21 14:35 [facility] [id number]) Posture Evaluation Vic Postural Classification System Elbow Flexion Test 0 Comments Posture Comments fwd shoulders and neck, fwd rounded & add shoulder blades PT-OP-K Range of Motion Start: 06/07/21 07:38 Freq: Status: Active Protocol: Document 06/07/21 13:45 [facility] (Rec: 06/07/21 14:35 [facility] [id number]) Cervical Spine Range of Motion Cervical Spine Active Degrees Flexion 47 Extension 36 Rotation Left 55 Rotation Right 56 Lateral Flexion Left 35 Lateral Flexion Right 18 Comments tight w/SB L, pain w/R, pain in shoulder after neck ROM Shoulder Goniometric Range of Motion Shoulder Left Passive Flexion 99 Abduction 60 External Rotation at 45 degrees 40 Abduction Internal Rotation 28 Right Active Flexion 150 Extension 62 Abduction 160 External Rotation at 0 degrees Abduction 60 Internal Rotation Behind Back (text) T5 Left Active Flexion 92 Extension 22 Abduction 68 External Rotation at 0 degrees Abduction 32 Internal Rotation Behind Back (text) lat L hip PT-OP-L Special Tests Start: 06/07/21 07:38 Freq: Status: Active Protocol: Document 06/07/21 13:45 [facility] (Rec: 06/07/21 14:35 [facility] [id number]) Special Tests Cervical Spine Special Tests Spurling's Test Test Results neg B Vertebral Artery Test Results neg R, funny feeling behind eyes L Alar Ligament Test Results neg Shoulder Special Tests Sulcus Test Results neg Empty Can Test Results positive L AC Joint Compression Test Results positive L Neural Special Tests- Upper Body Radial Nerve Tension Test Results positive L Median Nerve Tension Test Results painful but unsure if neural tension vs position on L Comments neg r Ulnar Nerve Tension Test Results painful but does not appear to be neural tension L PT-OP-M Strength Start: 06/07/21 07:38 Freq: Status: Active Protocol: Document 06/07/21 13:45 [facility] (Rec: 06/07/21 14:35 [facility] [id number]) Shoulder Strength Shoulder Manual Muscle Testing Right Flexion 4+ Good+ Extension 4+ Good+ Abduction (C5) 4+ Good+ External Rotation 4+ Good+ Internal Rotation 5 Normal Left Flexion 3 Fair Extension 3- Fair- Abduction (C5) 3- Fair- External Rotation 3+ Fair+ Internal Rotation 3+ Fair+ Elbow/Forearm Strength Elbow and Forearm Manual Muscle Testing Right Flexion (C6) 5 Normal Extension (C7) 5 Normal Pronation 5 Normal Supination 5 Normal Left Flexion (C6) 3+ Fair+ Extension (C7) 4- Good- Pronation 4- Good- Supination 3+ Fair+ Comments pain w/supination PT-OP-Q Treatments Start: 06/07/21 07:38 Freq: Status: Active Protocol: Document 06/16/21 11:06 AMB (Rec: 06/16/21 12:52 AMB [id number]) Therapeutic Exercises Supine Exercises AAROM Supine Exercise Name flexion and ER Reps/Minutes 2x10 Comments dowel Sitting Exercises levator scap stretch Reps/Minutes 30x2 table flexion stretch Comments to 90d ok, increases pain after that scapular retraction Sitting Exercise Name scapular retraction, depression Side bilateral Comments good, pain-free ROM; HEP Manual Therapy Treatment Taping L shoulder Type of Tape Kinesio Tape Comments 1Y to support GH joint, 1 I from ant to post for scap retraction PT-OP-R Modalities Start: 06/07/21 07:38 Freq: Status: Active Protocol: Document 06/07/21 13:45 LR (Rec: 06/07/21 14:35 [facility] [id number]) Hot Pack/Cold Pack Treatment Cold Pack Location L shoulder Patient Position Hooklying Treatment Duration (minutes) 10 PT-OP-T Assessment and Plan Start: 06/07/21 07:38 Freq: Status: Active Protocol: Document 06/16/21 11:06 AMB (Rec: 06/16/21 12:52 AMB [id number]) Physical Therapy Assessment Goals quick dash Impairment 43.18 Short Term Goal (STG) Pt will score no higher than 27 on quick dash to show improved functional ability. STG Duration 07/22 Alf Goal (LTG) Pt will score no higher than 7 on quick dash to show improved functional ability. LTG Duration 09/06/21 activities Short Term Goal (STG) Pt will be able to sleep through the night w/o inc pain . 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 LTG Duration 09/06/21 strength Short Term Goal (STG) pt will be indep w/HEP for strength, ROM and pain management. 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 LTG Duration 09/06/21 ROM Short Term Goal (STG) Pt will improve AROM flex to 120 deg and AROM abd to 95 deg to allow for greater ease for overhead activities. STG Duration 07/22/21 Engineering Model Maker Goal (LTG) Pt will have full cervical and L shoulder ROM as compared to R w/o pain to allow full return to ADLs w/o pain. LTG Duration 09/06/21 Assessment Summary Assessment Nadeen was able to tolerate ROM today but did not increase HEP. Could consider HEP prescription at next visit depending on how pt is progressing. Pt is hopefuly insurance with authorize MRI soon. Physical Therapy Plan Next Visit Focus/Plan Next Note Type Treatment Note Next Visit Plan Follow up on k tape tolerance. AAROM exercises gentle for HEP, gentle STM to pec, scalenes, parascapular mm, PNF scap, scap mobs, tspine mobs as able. Consider table slides and diaphragmatic breathing.
--- NOTE | 2021-06-21 12:48 | PT.OTN ---
Current Diagnoses Pain in left shoulder (06/21/21) Cervicalgia (06/21/21) Abnormal posture (06/21/21) Weakness (06/21/21) Physical Therapy Treatment Note PT-OP-A Visit Information Start: 06/07/21 07:38 Freq: Status: Active Protocol: Document 06/21/21 10:34 AMB (Rec: 06/21/21 11:20 AMB [id number]) Out-Patient Physical Therapy Visit Information Visit Information Visit Type Treatment Note Visit Start Time 11:00 Visit Stop Time 11:45 Total Visit Minutes 45 Visit Number 4 PT-OP-B Current Condition Start: 06/07/21 07:38 Freq: Status: Active Protocol: Document 06/07/21 13:45 LR (Rec: 06/07/21 14:35 [facility] [id number]) Current Condition History of Current Condition Onset Date Winter worsening 2 weeks ago Current Complaints L shoulder pain & neck pain History of Current Condition Pt reports she had to go to ER d/t L shoulder pain that went into her neck and caused a DAMON . She had surgery in neck in 2006 d/t Corpectomy at C6. Neck is not constant and depends on what she does. Normally only bothers her with a lot of lifting and overhead activity. Surgery was d/t a fall at home. Fall was d/t heat exhaustion and got dizzy and fell face first into railing. When she awoke both hands and arms were numb and she waited 24 hours before getting checked out. Sondra was admitted and sent to [place] and had pressure on spinal cord and had to have steriods for a week then surgery then another week of hospital stay. Pt reports she is R handed. L shoulder started hurting in winter. It was really painful post and MD said it was really tight and pt did take mm relaxors as needed mostly for sleep. Pt went to ER 05/25 after rolling over in bed and has been constant in shoulder and arm since then. She does not sleep through the night anymore because anytime sondra rolls onto that shoulder, she wakes up. She can't tuck in her shirts, is now using front clask bra and dressing is very painful. No other treatments. 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 She has a new desk now where she can work straight on and answers the phone w/her R side . Pt walks her 90lb dog and she walks only w/leash in R arm. Unsure what caused pain to start. 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 Normally would be doing stuff to wrok on car but right now is avoiding that stuff. Pt has no clue what caused pain. Pt reports she used to get migranes but they stopped about 20 years ago. They strated at age 21 goran. Prior Treatments and Tests Xray IMPRESSION: Moderate to severe acromioclavicular degenerative narrowing. Treatment Goals Patient/Caregiver Goals Be able to do all the lifting, climbing ladder to be able to work as car crew, be able to get dressed and do hair w/o pain, not have pain constantly anymore, be able to sleep through the night. PT-OP-C Subjective Start: 06/07/21 07:38 Freq: Status: Active Protocol: Document 06/21/21 10:34 AMB (Rec: 06/21/21 11:20 [facility] [id number]) OP-PT Subjective Patient Comments Patient Comments About the same as last visit. GEtting an MRI this afternoon . PT-OP-F Manual Assessment Start: 06/07/21 07:38 Freq: Status: Active Protocol: Document 06/07/21 13:45 [facility] (Rec: 06/07/21 14:35 [facility] [id number]) Manual Assessments Soft Tissue Assessment Soft Tissue Mobility Assessment Tenderness to palpation even w /light tough throughout L shoulder PT-OP-J Posture/Palpation/Skin Start: 06/07/21 07:38 Freq: Status: Active Protocol: Document 06/07/21 13:45 [facility] (Rec: 06/07/21 14:35 [facility] [id number]) Posture Evaluation Vic Postural Classification System Elbow Flexion Test 0 Comments Posture Comments fwd shoulders and neck, fwd rounded & add shoulder blades PT-OP-K Range of Motion Start: 06/07/21 07:38 Freq: Status: Active Protocol: Document 06/07/21 13:45 [facility] (Rec: 06/07/21 14:35 [facility] [id number]) Cervical Spine Range of Motion Cervical Spine Active Degrees Flexion 47 Extension 36 Rotation Left 55 Rotation Right 56 Lateral Flexion Left 35 Lateral Flexion Right 18 Comments tight w/SB L, pain w/R, pain in shoulder after neck ROM Shoulder Goniometric Range of Motion Shoulder Left Passive Flexion 99 Abduction 60 External Rotation at 45 degrees 40 Abduction Internal Rotation 28 Right Active Flexion 150 Extension 62 Abduction 160 External Rotation at 0 degrees Abduction 60 Internal Rotation Behind Back (text) T5 Left Active Flexion 92 Extension 22 Abduction 68 External Rotation at 0 degrees Abduction 32 Internal Rotation Behind Back (text) lat L hip PT-OP-L Special Tests Start: 06/07/21 07:38 Freq: Status: Active Protocol: Document 06/07/21 13:45 [facility] (Rec: 06/07/21 14:35 [facility] [id number]) Special Tests Cervical Spine Special Tests Spurling's Test Test Results neg B Vertebral Artery Test Results neg R, funny feeling behind eyes L Alar Ligament Test Results neg Shoulder Special Tests Sulcus Test Results neg Empty Can Test Results positive L AC Joint Compression Test Results positive L Neural Special Tests- Upper Body Radial Nerve Tension Test Results positive L Median Nerve Tension Test Results painful but unsure if neural tension vs position on L Comments neg r Ulnar Nerve Tension Test Results painful but does not appear to be neural tension L PT-OP-M Strength Start: 06/07/21 07:38 Freq: Status: Active Protocol: Document 06/07/21 13:45 [facility] (Rec: 06/07/21 14:35 [facility] [id number]) Shoulder Strength Shoulder Manual Muscle Testing Right Flexion 4+ Good+ Extension 4+ Good+ Abduction (C5) 4+ Good+ External Rotation 4+ Good+ Internal Rotation 5 Normal Left Flexion 3 Fair Extension 3- Fair- Abduction (C5) 3- Fair- External Rotation 3+ Fair+ Internal Rotation 3+ Fair+ Elbow/Forearm Strength Elbow and Forearm Manual Muscle Testing Right Flexion (C6) 5 Normal Extension (C7) 5 Normal Pronation 5 Normal Supination 5 Normal Left Flexion (C6) 3+ Fair+ Extension (C7) 4- Good- Pronation 4- Good- Supination 3+ Fair+ Comments pain w/supination PT-OP-Q Treatments Start: 06/07/21 07:38 Freq: Status: Active Protocol: Document 06/21/21 10:30 AMB (Rec: 06/21/21 12:41 AMB [id number]) Therapeutic Exercises Supine Exercises AAROM Supine Exercise Name flexion and ER Reps/Minutes 2x10 Comments dowel Manual Therapy Treatment Soft Tissue Mobilization L pec, biceps, periscapular Body Location L pec, scalenes, biceps, periscapular Mobilization Type Strumming Intensity/Depth Superficial Body Position Hooklying Comments Pt tolerated only superficial pressure. Highly reactive. Joint Mobilizations scapulothoracic Joint scapulothoracic Comments grade I-II mobs in sidelying Manual Techniques PROM left shoulder Type PROM left shoulder Body Position supine with arm supported Comments Long axis distraction and oscillations vaguely helpful. Did get pt to approx 120 degrees flexion without feeling any end feel, pt pt reported spasms and pain. PT-OP-R Modalities Start: 06/07/21 07:38 Freq: Status: Active Protocol: Document 06/21/21 10:30 AMB (Rec: 06/21/21 12:41 AMB [id number]) Hot Pack/Cold Pack Treatment Cold Pack Location L shoulder Patient Position Hooklying Treatment Duration (minutes) 10 PT-OP-T Assessment and Plan Start: 06/07/21 07:38 Freq: Status: Active Protocol: Document 06/21/21 10:34 AMB (Rec: 06/21/21 11:20 AMB [id number]) Physical Therapy Assessment Goals quick dash Impairment 43.18 Short Term Goal (STG) Pt will score no higher than 27 on quick dash to show improved functional ability. STG Duration 07/22 Intermediate Goal (LTG) Pt will score no higher than 7 on quick dash to show improved functional ability. LTG Duration 09/06/21 activities Short Term Goal (STG) Pt will be able to sleep through the night w/o inc pain . 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 LTG Duration 09/06/21 strength Short Term Goal (STG) pt will be indep w/HEP for strength, ROM and pain management. 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 LTG Duration 09/06/21 ROM Short Term Goal (STG) Pt will improve AROM flex to 120 deg and AROM abd to 95 deg to allow for greater ease for overhead activities. STG Duration 07/22/21 Shank Scourer Goal (LTG) Pt will have full cervical and L shoulder ROM as compared to R w/o pain to allow full return to ADLs w/o pain. LTG Duration 09/06/21 Assessment Summary Assessment Nadeen had a difficult time with PT today. Not able to get close to end range as pt had to stop PROM due to pain. She continues to have difficulty sleeping and voices frustration with pain with movement. Encouraged in continued gentle movement to avoid frozen shoulder if possible. Physical Therapy Plan Frequency and Duration Frequency of Treatment 1-2x/week Duration of Treatment 2 months Plan of Care Start Date 06/07/21 Plan of Care End Date 09/06/21 Therapeutic Interventions Therapeutic Interventions Aquatic Therapy,Gait Training, Home Exercise Program,Joint Mobilizations,Manual Therapy, Neuromuscular Re-education, Patient/Caregiver Education, Self-Care/Home Management,Soft Tissue Mobilization,Taping, Therapeutic Activities, Therapeutic Exercises Modalities Cold Pack/Ice Massage,Electric Stimulation,Hot Packs, Infrared Therapy,Iontophoresis ,Traction- Mechanical, Ultrasound Next Visit Focus/Plan Next Note Type Treatment Note Next Visit Plan Follow up MRI results. MOdalities as needed. AAROM exercises gentle for HEP, gentle STM to pec, scalenes, parascapular mm, PNF scap, scap mobs, tspine mobs as able . Consider table slides and diaphragmatic breathing.
--- NOTE | 2021-06-27 17:28 | PT.OTN ---
Current Diagnoses Pain in left shoulder (06/27/21) Cervicalgia (06/27/21) Abnormal posture (06/27/21) Weakness (06/27/21) Physical Therapy Treatment Note PT-OP-A Visit Information Start: 06/07/21 07:38 Freq: Status: Active Protocol: Document 06/27/21 16:47 DCW (Rec: 06/27/21 17:28 DC[facility] [id number]) Out-Patient Physical Therapy Visit Information Visit Information Visit Type Treatment Note Visit Start Time 16:47 Visit Stop Time 17:35 Total Visit Minutes 48 Visit Number 5 Evaluation Information Evaluation Date 06/07/21 PT-OP-B Current Condition Start: 06/07/21 07:38 Freq: Status: Active Protocol: Document 06/07/21 13:45 LR (Rec: 06/07/21 14:35 [facility] [id number]) Current Condition History of Current Condition Onset Date Winter worsening 2 weeks ago Current Complaints L shoulder pain & neck pain History of Current Condition Pt reports she had to go to ER d/t L shoulder pain that went into her neck and caused a DAMON . She had surgery in neck in 2006 d/t Corpectomy at [facility]. Neck is not constant and depends on what she does. Normally only bothers her with a lot of lifting and overhead activity. Surgery was d/t a fall at home. Fall was d/t heat exhaustion and got dizzy and fell face first into railing. When she awoke both hands and arms were numb and she waited 24 hours before getting checked out. Sondra was admitted and sent to [place] and had pressure on spinal cord and had to have steriods for a week then surgery then another week of hospital stay. Pt reports she is R handed. L shoulder started hurting in winter. It was really painful post and MD said it was really tight and pt did take mm relaxors as needed mostly for sleep. Pt went to ER 05/25 after rolling over in bed and has been constant in shoulder and arm since then. She does not sleep through the night anymore because anytime sondra rolls onto that shoulder, she wakes up. She can't tuck in her shirts, is now using front clask bra and dressing is very painful. No other treatments. 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 She has a new desk now where she can work straight on and answers the phone w/her R side . Pt walks her 90lb dog and she walks only w/leash in R arm. Unsure what caused pain to start. 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 Normally would be doing stuff to wrok on car but right now is avoiding that stuff. Pt has no clue what caused pain. Pt reports she used to get migranes but they stopped about 20 years ago. They strated at age 21 goran. Prior Treatments and Tests Xray IMPRESSION: Moderate to severe acromioclavicular degenerative narrowing. Treatment Goals Patient/Caregiver Goals Be able to do all the lifting, climbing ladder to be able to work as car crew, be able to get dressed and do hair w/o pain, not have pain constantly anymore, be able to sleep through the night. PT-OP-C Subjective Start: 06/07/21 07:38 Freq: Status: Active Protocol: Document 06/27/21 16:47 DCW (Rec: 06/27/21 17:28 [facility] [id number]) OP-PT Subjective Patient Comments Patient Comments Pt having trouble sleeping, it constantly hurts, there is no time where I can say it doesn't hurt. Still struggling washing hair, dressing herself, closing her car door. PT-OP-F Manual Assessment Start: 06/07/21 07:38 Freq: Status: Active Protocol: Document 06/07/21 13:45 [facility] (Rec: 06/07/21 14:35 [facility] [id number]) Manual Assessments Soft Tissue Assessment Soft Tissue Mobility Assessment Tenderness to palpation even w /light tough throughout L shoulder PT-OP-J Posture/Palpation/Skin Start: 06/07/21 07:38 Freq: Status: Active Protocol: Document 06/07/21 13:45 [facility] (Rec: 06/07/21 14:35 [facility] [id number]) Posture Evaluation Vic Postural Classification System Elbow Flexion Test 0 Comments Posture Comments fwd shoulders and neck, fwd rounded & add shoulder blades PT-OP-K Range of Motion Start: 06/07/21 07:38 Freq: Status: Active Protocol: Document 06/07/21 13:45 [facility] (Rec: 06/07/21 14:35 [facility] [id number]) Cervical Spine Range of Motion Cervical Spine Active Degrees Flexion 47 Extension 36 Rotation Left 55 Rotation Right 56 Lateral Flexion Left 35 Lateral Flexion Right 18 Comments tight w/SB L, pain w/R, pain in shoulder after neck ROM Shoulder Goniometric Range of Motion Shoulder Left Passive Flexion 99 Abduction 60 External Rotation at 45 degrees 40 Abduction Internal Rotation 28 Right Active Flexion 150 Extension 62 Abduction 160 External Rotation at 0 degrees Abduction 60 Internal Rotation Behind Back (text) T5 Left Active Flexion 92 Extension 22 Abduction 68 External Rotation at 0 degrees Abduction 32 Internal Rotation Behind Back (text) lat L hip PT-OP-L Special Tests Start: 06/07/21 07:38 Freq: Status: Active Protocol: Document 06/07/21 13:45 [facility] (Rec: 06/07/21 14:35 [facility] [id number]) Special Tests Cervical Spine Special Tests Spurling's Test Test Results neg B Vertebral Artery Test Results neg R, funny feeling behind eyes L Alar Ligament Test Results neg Shoulder Special Tests Sulcus Test Results neg Empty Can Test Results positive L AC Joint Compression Test Results positive L Neural Special Tests- Upper Body Radial Nerve Tension Test Results positive L Median Nerve Tension Test Results painful but unsure if neural tension vs position on L Comments neg r Ulnar Nerve Tension Test Results painful but does not appear to be neural tension L PT-OP-M Strength Start: 06/07/21 07:38 Freq: Status: Active Protocol: Document 06/07/21 13:45 [facility] (Rec: 06/07/21 14:35 [facility] [id number]) Shoulder Strength Shoulder Manual Muscle Testing Right Flexion 4+ Good+ Extension 4+ Good+ Abduction (C5) 4+ Good+ External Rotation 4+ Good+ Internal Rotation 5 Normal Left Flexion 3 Fair Extension 3- Fair- Abduction (C5) 3- Fair- External Rotation 3+ Fair+ Internal Rotation 3+ Fair+ Elbow/Forearm Strength Elbow and Forearm Manual Muscle Testing Right Flexion (C6) 5 Normal Extension (C7) 5 Normal Pronation 5 Normal Supination 5 Normal Left Flexion (C6) 3+ Fair+ Extension (C7) 4- Good- Pronation 4- Good- Supination 3+ Fair+ Comments pain w/supination PT-OP-Q Treatments Start: 06/07/21 07:38 Freq: Status: Active Protocol: Document 06/27/21 16:47 DCW (Rec: 06/27/21 17:28 [facility] [id number]) Therapeutic Exercises Supine Exercises AAROM Supine Exercise Name flexion and ER Reps/Minutes 2x10 Comments dowel Sitting Exercises GH FLexion Sitting Exercise Name Pulleys into flexion scapular retraction Sitting Exercise Name scapular retraction, depression Side bilateral Comments good, pain-free ROM Standing Exercises Shoulder Abduction Standing Exercise Name PVC Shoulder Abduction Comments AAROM Manual Therapy Treatment Joint Mobilizations scapulothoracic Joint scapulothoracic Comments grade I-II mobs in supine Manual Techniques PROM left shoulder Type PROM left shoulder Body Position supine with arm supported Comments Long axis distraction and oscillations vaguely helpful. PT-OP-R Modalities Start: 06/07/21 07:38 Freq: Status: Active Protocol: Document 06/27/21 16:47 DC (Rec: 06/27/21 17:28 [facility] [id number]) Hot Pack/Cold Pack Treatment Cold Pack Location L shoulder Patient Position Hooklying Treatment Duration (minutes) 10 PT-OP-T Assessment and Plan Start: 06/07/21 07:38 Freq: Status: Active Protocol: Document 06/27/21 16:47 DC (Rec: 06/27/21 17:28 [facility] [id number]) Physical Therapy Assessment Impairments Impairments Activity Tolerance, Coordination,Functional Activities,Functional Mobility ,Pain,Posture,ROM,Soft Tissue Mobility,Strength Goals quick dash Impairment 43.18 Short Term Goal (STG) Pt will score no higher than 27 on quick dash to show improved functional ability. STG Duration 07/22 [facility] Goal (LTG) Pt will score no higher than 7 on quick dash to show improved functional ability. LTG Duration 09/06/21 activities Short Term Goal (STG) Pt will be able to sleep through the night w/o inc pain . 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 LTG Duration 09/06/21 strength Short Term Goal (STG) pt will be indep w/HEP for strength, ROM and pain management. 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 LTG Duration 09/06/21 ROM Short Term Goal (STG) Pt will improve AROM flex to 120 deg and AROM abd to 95 deg to allow for greater ease for overhead activities. STG Duration 07/22/21 Controller Instructor Goal (LTG) Pt will have full cervical and L shoulder ROM as compared to R w/o pain to allow full return to ADLs w/o pain. LTG Duration 09/06/21 Assessment Summary Assessment Pt not tolerating treatment all that well, having difficulty with most activities. Worked more today with limiting PROM to pain- free, some gentle STM and joint mobs, still did note increased soreness in most areas. Physical Therapy Plan Frequency and Duration Frequency of Treatment 1-2x/week Duration of Treatment 2 months Plan of Care Start Date 06/07/21 Plan of Care End Date 09/06/21 Therapeutic Interventions Therapeutic Interventions Aquatic Therapy,Gait Training, Home Exercise Program,Joint Mobilizations,Manual Therapy, Neuromuscular Re-education, Patient/Caregiver Education, Self-Care/Home Management,Soft Tissue Mobilization,Taping, Therapeutic Activities, Therapeutic Exercises Modalities Cold Pack/Ice Massage,Electric Stimulation,Hot Packs, Infrared Therapy,Iontophoresis ,Traction- Mechanical, Ultrasound Next Visit Focus/Plan Next Note Type Treatment Note Next Visit Plan Follow up MRI results. MOdalities as needed. AAROM exercises gentle for HEP, gentle STM to pec, scalenes, parascapular mm, PNF scap, scap mobs, tspine mobs as able . Consider table slides and diaphragmatic breathing.
--- NOTE | 2021-07-06 15:41 | PT.OTN ---
Current Diagnoses Pain in left shoulder (07/06/21) Cervicalgia (07/06/21) Abnormal posture (07/06/21) Weakness (07/06/21) Physical Therapy Treatment Note PT-OP-A Visit Information Start: 06/07/21 07:38 Freq: Status: Active Protocol: Document 07/06/21 14:37 AW (Rec: 07/06/21 15:14 AW [id number]) Out-Patient Physical Therapy Visit Information Visit Information Visit Type Treatment Note Visit Start Time 14:37 Visit Stop Time 15:15 Total Visit Minutes 38 Visit Number 6 Number of CARE MANAGEMENT SPECIALIST Visits 0 Evaluation Information Evaluation Date 06/07/21 PT-OP-B Current Condition Start: 06/07/21 07:38 Freq: Status: Active Protocol: Document 06/07/21 13:45 [facility] (Rec: 06/07/21 14:35 LR [id number]) Current Condition History of Current Condition Onset Date Winter worsening 2 weeks ago Current Complaints L shoulder pain & neck pain History of Current Condition Pt reports she had to go to ER d/t L shoulder pain that went into her neck and caused a DAMON . She had surgery in neck in 2006 d/t Corpectomy at [facility]. Neck is not constant and depends on what she does. Normally only bothers her with a lot of lifting and overhead activity. Surgery was d/t a fall at home. Fall was d/t heat exhaustion and got dizzy and fell face first into railing. When she awoke both hands and arms were numb and she waited 24 hours before getting checked out. Sondra was admitted and sent to [place] and had pressure on spinal cord and had to have steriods for a week then surgery then another week of hospital stay. Pt reports she is R handed. L shoulder started hurting in winter. It was really painful post and MD said it was really tight and pt did take mm relaxors as needed mostly for sleep. Pt went to ER 05/25 after rolling over in bed and has been constant in shoulder and arm since then. She does not sleep through the night anymore because anytime sondra rolls onto that shoulder, she wakes up. She can't tuck in her shirts, is now using front clask bra and dressing is very painful. No other treatments. 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 She has a new desk now where she can work straight on and answers the phone w/her R side . Pt walks her 90lb dog and she walks only w/leash in R arm. Unsure what caused pain to start. 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 Normally would be doing stuff to wrok on car but right now is avoiding that stuff. Pt has no clue what caused pain. Pt reports she used to get migranes but they stopped about 20 years ago. They strated at age 21 goran. Prior Treatments and Tests Xray IMPRESSION: Moderate to severe acromioclavicular degenerative narrowing. Treatment Goals Patient/Caregiver Goals Be able to do all the lifting, climbing ladder to be able to work as car crew, be able to get dressed and do hair w/o pain, not have pain constantly anymore, be able to sleep through the night. PT-OP-C Subjective Start: 06/07/21 07:38 Freq: Status: Active Protocol: Document 07/06/21 14:37 AW (Rec: 07/06/21 15:14 AW [id number]) OP-PT Subjective Patient Comments Patient Comments Pt relays the results of her MRI including partial thickness rotator cuff tears and likely labral tear. She is interested in continuing therapy at this time. She has an appointment with ortho (Dr. Mccurdy) on Sunday. Patient Questionnaires Quick Dash- Upper Extremity Quick Dash UE Score 55 Quick Dash UE Impairment 40 to 59% Impaired (Score 40- 59) PT-OP-F Manual Assessment Start: 06/07/21 07:38 Freq: Status: Active Protocol: Document 06/07/21 13:45 [facility] (Rec: 06/07/21 14:35 [facility] [id number]) Manual Assessments Soft Tissue Assessment Soft Tissue Mobility Assessment Tenderness to palpation even w /light tough throughout L shoulder PT-OP-J Posture/Palpation/Skin Start: 06/07/21 07:38 Freq: Status: Active Protocol: Document 06/07/21 13:45 [facility] (Rec: 06/07/21 14:35 [facility] [id number]) Posture Evaluation Vic Postural Classification System Elbow Flexion Test 0 Comments Posture Comments fwd shoulders and neck, fwd rounded & add shoulder blades PT-OP-K Range of Motion Start: 06/07/21 07:38 Freq: Status: Active Protocol: Document 06/07/21 13:45 [facility] (Rec: 06/07/21 14:35 [facility] [id number]) Cervical Spine Range of Motion Cervical Spine Active Degrees Flexion 47 Extension 36 Rotation Left 55 Rotation Right 56 Lateral Flexion Left 35 Lateral Flexion Right 18 Comments tight w/SB L, pain w/R, pain in shoulder after neck ROM Shoulder Goniometric Range of Motion Shoulder Left Passive Flexion 99 Abduction 60 External Rotation at 45 degrees 40 Abduction Internal Rotation 28 Right Active Flexion 150 Extension 62 Abduction 160 External Rotation at 0 degrees Abduction 60 Internal Rotation Behind Back (text) T5 Left Active Flexion 92 Extension 22 Abduction 68 External Rotation at 0 degrees Abduction 32 Internal Rotation Behind Back (text) lat L hip PT-OP-L Special Tests Start: 06/07/21 07:38 Freq: Status: Active Protocol: Document 06/07/21 13:45 [facility] (Rec: 06/07/21 14:35 [facility] [id number]) Special Tests Cervical Spine Special Tests Spurling's Test Test Results neg B Vertebral Artery Test Results neg R, funny feeling behind eyes L Alar Ligament Test Results neg Shoulder Special Tests Sulcus Test Results neg Empty Can Test Results positive L AC Joint Compression Test Results positive L Neural Special Tests- Upper Body Radial Nerve Tension Test Results positive L Median Nerve Tension Test Results painful but unsure if neural tension vs position on L Comments neg r Ulnar Nerve Tension Test Results painful but does not appear to be neural tension L PT-OP-M Strength Start: 06/07/21 07:38 Freq: Status: Active Protocol: Document 06/07/21 13:45 [facility] (Rec: 06/07/21 14:35 [facility] [id number]) Shoulder Strength Shoulder Manual Muscle Testing Right Flexion 4+ Good+ Extension 4+ Good+ Abduction (C5) 4+ Good+ External Rotation 4+ Good+ Internal Rotation 5 Normal Left Flexion 3 Fair Extension 3- Fair- Abduction (C5) 3- Fair- External Rotation 3+ Fair+ Internal Rotation 3+ Fair+ Elbow/Forearm Strength Elbow and Forearm Manual Muscle Testing Right Flexion (C6) 5 Normal Extension (C7) 5 Normal Pronation 5 Normal Supination 5 Normal Left Flexion (C6) 3+ Fair+ Extension (C7) 4- Good- Pronation 4- Good- Supination 3+ Fair+ Comments pain w/supination PT-OP-Q Treatments Start: 06/07/21 07:38 Freq: Status: Active Protocol: Document 07/06/21 14:37 AW (Rec: 07/06/21 15:14 AW [id number]) Therapeutic Exercises Supine Exercises AAROM Supine Exercise Name flexion and ER Reps/Minutes 2x10 Comments dowel Sitting Exercises scapular retraction Sitting Exercise Name scapular retraction, depression Side bilateral Comments good, pain-free ROM Standing Exercises Shoulder Abduction Standing Exercise Name PVC Shoulder Abduction Comments AAROM Manual Therapy Treatment Soft Tissue Mobilization L pec, biceps, periscapular Body Location L pec, scalenes, biceps, periscapular Mobilization Type Strumming Intensity/Depth Superficial Body Position Hooklying Comments Pt tolerated only superficial pressure. Highly reactive. Joint Mobilizations scapulothoracic Joint scapulothoracic Comments grade I-II mobs in sidelying PT-OP-R Modalities Start: 06/07/21 07:38 Freq: Status: Active Protocol: Document 07/06/21 14:37 AW (Rec: 07/06/21 15:14 AW [id number]) Hot Pack/Cold Pack Treatment Cold Pack Location L shoulder Patient Position Hooklying Treatment Duration (minutes) 10 Comments during ther ex PT-OP-T Assessment and Plan Start: 06/07/21 07:38 Freq: Status: Active Protocol: Document 07/06/21 14:37 AW (Rec: 07/06/21 15:14 AW [id number]) Physical Therapy Assessment Impairments Impairments Activity Tolerance, Coordination,Functional Activities,Functional Mobility ,Pain,Posture,ROM,Soft Tissue Mobility,Strength Goals quick dash Impairment 43.18 Short Term Goal (STG) Pt will score no higher than 27 on quick dash to show improved functional ability. STG Duration 07/22 Senior Care Goal (LTG) Pt will score no higher than 7 on quick dash to show improved functional ability. LTG Duration 09/06/21 activities Short Term Goal (STG) Pt will be able to sleep through the night w/o inc pain . STG Duration 07/22/21 Senior Care Goal (LTG) Pt will be able to work, walk dog, particiapte in ADLs and work as crew for racing w/o inc pain. LTG Duration 09/06/21 strength Short Term Goal (STG) pt will be indep w/HEP for strength, ROM and pain management. STG Duration 07/22/21 Senior Care Goal (LTG) Pt will score 5/5 on all L shoulder and elbow MMT and at least 3/5 on EFT to shwo improved staiblity in order to allow for pt to be able to lift as needed when working as crew for race cars. LTG Duration 09/06/21 ROM Short Term Goal (STG) Pt will improve AROM flex to 120 deg and AROM abd to 95 deg to allow for greater ease for overhead activities. STG Duration 07/22/21 Senior Care Goal (LTG) Pt will have full cervical and L shoulder ROM as compared to R w/o pain to allow full return to ADLs w/o pain. LTG Duration 09/06/21 Assessment Summary Assessment Pt still highly irritable with her symptoms. She seems to understand her MRI results. She will see ortho on Sunday and call if needing to cancel appointments. Physical Therapy Plan Frequency and Duration Frequency of Treatment 1-2x/week Duration of Treatment 2 months Plan of Care Start Date 06/07/21 Plan of Care End Date 09/06/21 Therapeutic Interventions Therapeutic Interventions Aquatic Therapy,Gait Training, Home Exercise Program,Joint Mobilizations,Manual Therapy, Neuromuscular Re-education, Patient/Caregiver Education, Self-Care/Home Management,Soft Tissue Mobilization,Taping, Therapeutic Activities, Therapeutic Exercises Modalities Cold Pack/Ice Massage,Electric Stimulation,Hot Packs, Infrared Therapy,Iontophoresis ,Traction- Mechanical, Ultrasound Next Visit Focus/Plan Next Note Type Treatment Note Next Visit Plan Follow up ortho recommendations. Modalities as needed. AAROM exercises gentle for HEP, gentle STM to pec, scalenes, parascapular mm , PNF scap, scap mobs, tspine mobs as able. Consider table slides and diaphragmatic breathing.
--- NOTE | 2021-07-12 08:34 | PT.OPDS ---
Current Diagnoses Pain in left shoulder (07/06/21) Cervicalgia (07/06/21) Abnormal posture (07/06/21) Weakness (07/06/21) Visit Care Team Role Provider Type Trevor Bellamy MD Attending Provider Physician Family Provider Primary Care Provider Referring Provider Specialty: Internal Medicine Address: [address] [place] [address], [address], [place], [address] Email: [email or web address] Visit Number Visit Number 6 Discharge Summary PT-OP-B Current Condition Start: 06/07/21 07:38 Freq: Status: Active Protocol: Document 06/07/21 13:45 [facility] (Rec: 06/07/21 14:35 [facility] [id number]) Current Condition History of Current Condition Onset Date Winter worsening 2 weeks ago Current Complaints L shoulder pain & neck pain History of Current Condition Pt reports she had to go to ER d/t L shoulder pain that went into her neck and caused a DAMON . She had surgery in neck in 2006 d/t Corpectomy at [facility]. Neck is not constant and depends on what she does. Normally only bothers her with a lot of lifting and overhead activity. Surgery was d/t a fall at home. Fall was d/t heat exhaustion and got dizzy and fell face first into railing. When she awoke both hands and arms were numb and she waited 24 hours before getting checked out. Sondra was admitted and sent to [place] and had pressure on spinal cord and had to have steriods for a week then surgery then another week of hospital stay. Pt reports she is R handed. L shoulder started hurting in winter. It was really painful post and MD said it was really tight and pt did take mm relaxors as needed mostly for sleep. Pt went to ER 05/25 after rolling over in bed and has been constant in shoulder and arm since then. She does not sleep through the night anymore because anytime sondra rolls onto that shoulder, she wakes up. She can't tuck in her shirts, is now using front clask bra and dressing is very painful. No other treatments. 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. She has a new desk now where she can work straight on and answers the phone w/her R side . Pt walks her 90lb dog and she walks only w/leash in R arm. Unsure what caused pain to start. 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 Normally would be doing stuff to wrok on car but right now is avoiding that stuff. Pt has no clue what caused pain. Pt reports she used to get migranes but they stopped about 20 years ago. They strated at age 21 goran. Prior Treatments and Tests Xray IMPRESSION: Moderate to severe acromioclavicular degenerative narrowing. Treatment Goals Patient/Caregiver Goals Be able to do all the lifting, climbing ladder to be able to work as car crew, be able to get dressed and do hair w/o pain, not have pain constantly anymore, be able to sleep through the night. PT-OP-C Subjective Start: 06/07/21 07:38 Freq: Status: Active Protocol: Document 07/06/21 14:37 AW (Rec: 07/06/21 15:14 AW [id number]) OP-PT Subjective Patient Comments Patient Comments Pt relays the results of her MRI including partial thickness rotator cuff tears and likely labral tear. She is interested in continuing therapy at this time. She has an appointment with ortho (Dr. Mccurdy) on Sunday. Patient Questionnaires Quick Dash- Upper Extremity Quick Dash UE Score 55 Quick Dash UE Impairment 40 to 59% Impaired (Score 40- 59) PT-OP-F Manual Assessment Start: 06/07/21 07:38 Freq: Status: Active Protocol: Document 06/07/21 13:45 [facility] (Rec: 06/07/21 14:35 [facility] [id number]) Manual Assessments Soft Tissue Assessment Soft Tissue Mobility Assessment Tenderness to palpation even w /light tough throughout L shoulder PT-OP-J Posture/Palpation/Skin Start: 06/07/21 07:38 Freq: Status: Active Protocol: Document 06/07/21 13:45 [facility] (Rec: 06/07/21 14:35 [facility] [id number]) Posture Evaluation Vic Postural Classification System Elbow Flexion Test 0 Comments Posture Comments fwd shoulders and neck, fwd rounded & add shoulder blades PT-OP-K Range of Motion Start: 06/07/21 07:38 Freq: Status: Active Protocol: Document 06/07/21 13:45 [facility] (Rec: 06/07/21 14:35 [facility] [id number]) Cervical Spine Range of Motion Cervical Spine Active Degrees Flexion 47 Extension 36 Rotation Left 55 Rotation Right 56 Lateral Flexion Left 35 Lateral Flexion Right 18 Comments tight w/SB L, pain w/R, pain in shoulder after neck ROM Shoulder Goniometric Range of Motion Shoulder Left Passive Flexion 99 Abduction 60 External Rotation at 45 degrees 40 Abduction Internal Rotation 28 Right Active Flexion 150 Extension 62 Abduction 160 External Rotation at 0 degrees Abduction 60 Internal Rotation Behind Back (text) T5 Left Active Flexion 92 Extension 22 Abduction 68 External Rotation at 0 degrees Abduction 32 Internal Rotation Behind Back (text) lat L hip PT-OP-L Special Tests Start: 06/07/21 07:38 Freq: Status: Active Protocol: Document 06/07/21 13:45 [facility] (Rec: 06/07/21 14:35 [facility] [id number]) Special Tests Cervical Spine Special Tests Spurling's Test Test Results neg B Vertebral Artery Test Results neg R, funny feeling behind eyes L Alar Ligament Test Results neg Shoulder Special Tests Sulcus Test Results neg Empty Can Test Results positive L AC Joint Compression Test Results positive L Neural Special Tests- Upper Body Radial Nerve Tension Test Results positive L Median Nerve Tension Test Results painful but unsure if neural tension vs position on L Comments neg r Ulnar Nerve Tension Test Results painful but does not appear to be neural tension L PT-OP-M Strength Start: 06/07/21 07:38 Freq: Status: Active Protocol: Document 06/07/21 13:45 [facility] (Rec: 06/07/21 14:35 [facility] [id number]) Shoulder Strength Shoulder Manual Muscle Testing Right Flexion 4+ Good+ Extension 4+ Good+ Abduction (C5) 4+ Good+ External Rotation 4+ Good+ Internal Rotation 5 Normal Left Flexion 3 Fair Extension 3- Fair- Abduction (C5) 3- Fair- External Rotation 3+ Fair+ Internal Rotation 3+ Fair+ Elbow/Forearm Strength Elbow and Forearm Manual Muscle Testing Right Flexion (C6) 5 Normal Extension (C7) 5 Normal Pronation 5 Normal Supination 5 Normal Left Flexion (C6) 3+ Fair+ Extension (C7) 4- Good- Pronation 4- Good- Supination 3+ Fair+ Comments pain w/supination PT-OP-T Assessment and Plan Start: 06/07/21 07:38 Freq: Status: Active Protocol: Document 07/12/21 08:32 AW (Rec: 07/12/21 08:34 AW [id number]) Physical Therapy Plan Discharge Physical Therapy Discharge Reasons Patient Request Discharge Comments Pt was evaluated by orthopedics and elected surgery. Ortho recommended discontinuing PT at this time. Pt requests discharge from current plan of care and understands she will need a new referral to return after surgery.
== END 2021-07-13 11:57 ==
LOC: PHYS 14:30
PROVIDERS: Family Provider Student in an Organized Health Care Education/Training Program; PCP Student in an Organized Health Care Education/Training Program; Referring Provider Student in an Organized Health Care Education/Training Program; Visit Provider Student in an Organized Health Care Education/Training Program
DX: M25.512 Pain in left shoulder (principal); M54.2 Cervicalgia; R53.1 Weakness; R29.3 Abnormal posture
CPT/HCPCS: 97110; 97140; 97162; 97530

== ENCOUNTER → 2021-12-06 08:43 | Outpatient (CLI) | payer OTHER, SELFPAY ==
[2021-12-06 10:10] LABS: Hemoglobin A1C% w Est Avg Glu 5.5 % (4.0-6.0)
[2021-12-06 10:18] LABS: Alanine Aminotransferase 44 IU/L (<35); Albumin 3.8 g/dL (3.5-5.0); Alkaline Phosphatase 126 U/L (38-126); Aspartate Aminotransferase 40 IU/L (14-36); BUN Creatinine Ratio 29.1 (6-22); Bilirubin Total 0.5 mg/dL (0.2-1.3); Blood Urea Nitrogen 23 mg/dL (7-17); Calcium 8.9 mg/dL (8.4-10.2); Carbon Dioxide 27 mmol/L (22-32); Chloride 102 mmol/L (98-107); Estimated Glomerular Filt Rate > 60 mL/min (>60); Globulin 3.9 g/dL (1.7-4.1); Glucose 139 mg/dL (80-110); HEMOLYSIS < 15 (0-50); Potassium 4.2 mmol/L (3.4-5.1); Sodium 138 mmol/L (137-145); Total Protein 7.7 g/dL (6.3-8.2)
[2021-12-06 10:35] LABS: Appearance Urine UA CLEAR; Bilirubin Urine UA NEGATIVE (NEGATIVE); Color Urine UA YELLOW; Glucose Urine UA NEGATIVE (Negative); Ketones Urine UA NEGATIVE (NEGATIVE); Leukocyte Esterase Urine UA TRACE (NEGATIVE); Nitrite Urine UA NEGATIVE (Negative); Occult Blood Urine UA NEGATIVE (Negative); Protein Urine UA NEGATIVE (Negative); Urobilinogen Urine UA 0.2 E.U./dL (0.2)
[2021-12-06 11:29] LABS: RBC Urine None Seen (0-5/HPF); WBC Urine 0-1/HPF (0-5/HPF)
[2021-12-06 11:30] LABS: Bacteria Urine Moderate (10-30); Culture Indicated Urine Specimen Cultured; Squamous Epithelial Cell Urine 1-5 /HPF (0-5/HPF)
[2021-12-06 14:54] LABS: Creatinine Urine Random 86.9 mg/dL
[2021-12-06 15:06] LABS: Microalbumin Urine Random < 0.6 mg/dL (0-1.6)
== END ==
PROVIDERS: Family Provider Student in an Organized Health Care Education/Training Program; PCP Student in an Organized Health Care Education/Training Program; Referring Provider Student in an Organized Health Care Education/Training Program; Visit Provider Student in an Organized Health Care Education/Training Program
DX: E11.9 Type 2 diabetes mellitus without complications (principal); I10 Essential (primary) hypertension
CPT/HCPCS: 36415; 80053; 81001; 82043; 82570; 83036; 87086

== ENCOUNTER → 2022-02-10 09:53 | Outpatient (CLI) | payer OTHER, SELFPAY ==
[2022-02-10 14:49] LABS: Influenza A - CEPHEID Flu A NEGATIVE (NEGATIVE); Influenza B - CEPHEID Flu B NEGATIVE (NEGATIVE); Respiratory Syncytial Virus Negative (Negative)
[2022-02-10 14:54] LABS: COVID-19 CEPHEID 4-PLEX PCR Negative (Negative)
== END ==
PROVIDERS: Family Provider Student in an Organized Health Care Education/Training Program; PCP Student in an Organized Health Care Education/Training Program; Visit Provider Physician Assistant Medical
DX: R05.9 Cough, unspecified (principal); Z20.822 Contact with and (suspected) exposure to COVID-19
CPT/HCPCS: 0241U

== ENCOUNTER → 2022-11-21 08:46 | Outpatient (CLI) | payer OTHER, SELFPAY ==
[2022-11-21 10:10] LABS: Add Manual Diff / Slide Review NO; Basophils Absolute Auto 0 /uL (0-100); Eosinophils Absolute Auto 100 /uL (0-450); Hematocrit 35.6 % (36-46); Hemoglobin 12.7 g/dL (12.0-16.0); Lymphocytes Absolute Auto 800 /uL (1100-4500); Lymphocytes Percent Auto 32.7 % (25-40); Mean Corpuscular HGB Conc 35.5 % (30-36); Mean Corpuscular Volume 98.5 fL (80-100); Monocytes Absolute Auto 300 /uL (0-900); Neutrophils Absolute Auto 1300 /uL (1500-7000); Neutrophils Percent Auto 49.3 % (50-75); Platelet Count 82 X10^3/uL (150-400); Red Blood Cell Count 3.62 X10^6/uL (4.0-5.2); Red Cell Distribution Width 13.7 % (11.6-14.8); White Blood Cell Count 2.6 X10^3/uL (4.5-11.0)
[2022-11-21 10:29] LABS: Hemoglobin A1C% w Est Avg Glu 5.2 % (4.0-6.0)
[2022-11-21 10:59] LABS: Alanine Aminotransferase 48 IU/L (<35); Albumin 3.7 g/dL (3.5-5.0); Albumin Globulin Ratio 1.1 (1.0-2.8); Alkaline Phosphatase 117 U/L (38-126); Aspartate Aminotransferase 43 IU/L (14-36); BUN Creatinine Ratio 19.7 (6-22); Bilirubin Total 0.8 mg/dL (0.2-1.3); Blood Urea Nitrogen 13 mg/dL (7-17); Calcium 9.2 mg/dL (8.4-10.2); Carbon Dioxide 28 mmol/L (22-32); Chloride 101 mmol/L (98-107); Cholesterol 182 mg/dL (140-199); Estimated Glomerular Filt Rate > 60 mL/min (>60); Globulin 3.4 g/dL (1.7-4.1); Glucose 124 mg/dL (80-110); HDL Cholesterol 57 mg/dL (40-60); HEMOLYSIS < 15 (0-50); LDL Cholesterol Calculated 96 mg/dL (<100); Potassium 3.9 mmol/L (3.4-5.1); Sodium 135 mmol/L (137-145); Total Protein 7.1 g/dL (6.3-8.2); Triglycerides 145 mg/dL (35-150)
[2022-11-21 11:13] LABS: Vitamin D 25 Hydroxy (D3) > 126 ng/mL (30.0-100.0)
[2022-11-21 12:28] LABS: Appearance Urine UA CLEAR; Bilirubin Urine UA NEGATIVE (NEGATIVE); Color Urine UA YELLOW; Glucose Urine UA NEGATIVE (Negative); Ketones Urine UA NEGATIVE (NEGATIVE); Leukocyte Esterase Urine UA NEGATIVE (NEGATIVE); Nitrite Urine UA NEGATIVE (Negative); Occult Blood Urine UA NEGATIVE (Negative); Protein Urine UA NEGATIVE (Negative); Urobilinogen Urine UA 0.2 E.U./dL (0.2)
[2022-11-21 12:50] LABS: Bacteria Urine None Seen; Culture Indicated Urine Cult Not Indicated; RBC Urine None Seen (0-5/HPF); Squamous Epithelial Cell Urine None Seen (0-5/HPF); Urine Comments Microscopic Normal; WBC Urine None Seen (0-5/HPF)
[2022-11-21 13:01] LABS: Creatinine Urine Random 74.5 mg/dL
[2022-11-21 13:08] LABS: Microalbumin Urine Random < 0.6 mg/dL (0-1.6)
[2022-11-23 16:57] LABS: Hep C Virus Ab w/Reflex Quant NEGATIVE s/c (NEGATIVE)
== END ==
PROVIDERS: Family Provider Student in an Organized Health Care Education/Training Program; PCP Pediatrics; Referring Provider Pediatrics; Visit Provider Pediatrics
DX: E55.9 Vitamin D deficiency, unspecified (principal); E11.69 Type 2 diabetes mellitus with other specified complication; E78.5 Hyperlipidemia, unspecified; E11.9 Type 2 diabetes mellitus without complications; I10 Essential (primary) hypertension
CPT/HCPCS: 36415; 80053; 80061; 81001; 82043; 82306; 82570; 83036; 83735; 85025; 86803

== ENCOUNTER → 2022-12-14 11:01 | Outpatient (CLI) | payer OTHER, SELFPAY ==
[2022-12-14 12:16] LABS: Add Manual Diff / Slide Review NO; Basophils Absolute Auto 0 /uL (0-100); Basophils Percent Auto 0.8 % (0-2); Eosinophils Absolute Auto 100 /uL (0-450); Eosinophils Percent Auto 3.5 % (2-4); Hematocrit 35.8 % (36-46); Hemoglobin 12.8 g/dL (12.0-16.0); Lymphocytes Absolute Auto 1200 /uL (1100-4500); Lymphocytes Percent Auto 37.4 % (25-40); Mean Corpuscular HGB Conc 35.6 % (30-36); Mean Corpuscular Hemoglobin 34.2 PG (26-34); Mean Corpuscular Volume 96.1 fL (80-100); Monocytes Absolute Auto 500 /uL (0-900); Monocytes Percent Auto 15.1 % (3-14); Neutrophils Absolute Auto 1300 /uL (1500-7000); Neutrophils Percent Auto 43.2 % (50-75); Platelet Count 87 X10^3/uL (150-400); Red Blood Cell Count 3.73 X10^6/uL (4.0-5.2); Red Cell Distribution Width 13.6 % (11.6-14.8); White Blood Cell Count 3.1 X10^3/uL (4.5-11.0)
[2022-12-14 12:56] LABS: HEMOLYSIS < 15 (0-50); Iron 177 ug/dL (37-170)
[2022-12-14 12:59] LABS: Alanine Aminotransferase 43 IU/L (<35); Albumin 3.9 g/dL (3.5-5.0); Albumin Globulin Ratio 1.1 (1.0-2.8); Alkaline Phosphatase 127 U/L (38-126); Aspartate Aminotransferase 45 IU/L (14-36); BUN Creatinine Ratio 28.4 (6-22); Bilirubin Total 0.7 mg/dL (0.2-1.3); Blood Urea Nitrogen 19 mg/dL (7-17); Calcium 9.2 mg/dL (8.4-10.2); Carbon Dioxide 27 mmol/L (22-32); Chloride 99 mmol/L (98-107); Estimated Glomerular Filt Rate > 60 mL/min (>60); Globulin 3.4 g/dL (1.7-4.1); Glucose 98 mg/dL (80-110); HEMOLYSIS < 15 (0-50); Potassium 4.1 mmol/L (3.4-5.1); Sodium 134 mmol/L (137-145); Total Protein 7.3 g/dL (6.3-8.2)
[2022-12-14 13:07] LABS: Percent Iron Saturation 50 % (15-50); Total Iron Binding Capacity 353 ug/dL (265-497); Transferrin 260 mg/dL (206-381)
[2022-12-14 13:34] LABS: Ferritin 40 ng/mL (11-264)
== END ==
PROVIDERS: Family Provider Student in an Organized Health Care Education/Training Program; PCP Student in an Organized Health Care Education/Training Program; Referring Provider Student in an Organized Health Care Education/Training Program; Visit Provider Student in an Organized Health Care Education/Training Program
DX: D64.9 Anemia, unspecified (principal); R74.8 Abnormal levels of other serum enzymes; L65.9 Nonscarring hair loss, unspecified
CPT/HCPCS: 36415; 80053; 82728; 83540; 83550; 85025

== ENCOUNTER → 2023-01-10 17:09 | Outpatient (CLI) | payer OTHER, SELFPAY ==
[2023-01-10 18:18] LABS: TSH w/ Reflex to FT4 3.49 uIU/mL (0.47-4.68)
[2023-01-10 18:52] LABS: Folate > 20.0 ng/mL (2.76-20.0); Vitamin B12 938 pg/mL (239-931)
== END ==
PROVIDERS: Family Provider Student in an Organized Health Care Education/Training Program; PCP Student in an Organized Health Care Education/Training Program; Referring Provider Student in an Organized Health Care Education/Training Program; Visit Provider Student in an Organized Health Care Education/Training Program
DX: D64.9 Anemia, unspecified (principal); L65.9 Nonscarring hair loss, unspecified
CPT/HCPCS: 36415; 82607; 82746; 84443

== ENCOUNTER → 2023-01-30 16:35 | Outpatient (CLI) | payer OTHER, SELFPAY ==
--- NOTE | 2023-01-30 16:38 | DI.US.S_ITS ---
PROCEDURE: US ABDOMEN LIMITED INDICATIONS: elevated liver enzymes TECHNIQUE: Real-time scanning was performed of the abdominal and retroperitoneal organs, with image documentation. COMPARISON: [facility], , US ABDOMEN LIMITED, 11/21/2019, 17:47. FINDINGS: Liver: Liver is normal in size and homogeneous in echotexture. Liver parenchyma is mildly diffusely echogenic. Patent IVC. Gallbladder: Cholecystectomy Biliary ducts: Intrahepatic bile ducts are non-dilated. Extrahepatic bile duct caliber measures 4 mm. Normal is 6-7 mm or less in diameter, or 10 mm or less post-cholecystectomy. Pancreas: Visualized portions of the pancreas are sonographically normal. IMPRESSION: 1. Liver parenchyma is mildly diffusely echogenic which may be seen in the setting of parenchymal disease such as steatosis. 2. Cholecystectomy with no intra or extrahepatic biliary ductal dilatation. Dictated by: Charles Mancia M.D. on 01/30/2023 at 18:52 Approved by: Charles Mancia M.D. on 01/30/2023 at 18:53
--- NOTE | 2023-01-30 16:38 | DI.MG.S_ITS ---
BILATERAL DIGITAL SCREENING MAMMOGRAM 3D/2D WITH CAD: 01/30/2023 CLINICAL: Baseline exam. Routine screening. No prior exams were available for comparison. Both breasts are almost entirely fatty (category a/<25% glandular tissue). Current study was also evaluated with a Computer Aided Detection (CAD) system. There is an asymmetry in the right breast posterior depth superior region seen on the mediolateral oblique view only. No other significant masses, calcifications, or other findings are seen in either breast. IMPRESSION: INCOMPLETE: NEEDS ADDITIONAL IMAGING EVALUATION The asymmetry in the right breast resembles a lymph node and is indeterminate. Additional views with possible ultrasound are recommended. Based on the Tyrer Cuzick model (a risk assessment model) the patient's lifetime risk is 7.0% and her 10 year risk is 2.9%. According to the ACR, ACS, and NCCN guidelines, an annual breast MRI exam along with mammogram is recommended if the patient's lifetime risk is 20% or greater. This exam was interpreted at Station ID: [id number]. NOTE: For mammograms, a report in lay terms will be sent to the patient. Approximately 15% of breast malignancies will not be visualized mammographically. In the management of a palpable breast mass, a negative mammogram must not discourage biopsy of a clinically suspicious lesion. Electronically Signed By: Indio Medrano M.D. lc/:01/31/2023 08:35:04 letter sent: Additional Imaging Needed ACR BI-RADS Category 0: Incomplete 3340F
== END ==
PROVIDERS: Family Provider Student in an Organized Health Care Education/Training Program; PCP Student in an Organized Health Care Education/Training Program; Referring Provider Student in an Organized Health Care Education/Training Program; Visit Provider Student in an Organized Health Care Education/Training Program
DX: Z12.31 Encounter for screening mammogram for malignant neoplasm of breast (principal); N64.89 Other specified disorders of breast; Z90.49 Acquired absence of other specified parts of digestive tract
CPT/HCPCS: 76705; 77063; 77067

== ENCOUNTER → 2023-02-16 13:26 | Outpatient (CLI) | payer OTHER, SELFPAY ==
--- NOTE | 2023-02-16 | DI.MG.S_ITS ---
UNILATERAL RIGHT DIGITAL DIAGNOSTIC MAMMOGRAM 3D/2D WITH ADDITIONAL VIEWS: 02/16/2023 CLINICAL: Additional evaluation requested from prior study. Comparison is made to exam dated: 01/30/2023 mammogram - [facility]. There are scattered areas of fibroglandular density in the right breast (category b / 25%-50% glandular tissue). There is a 0.8 cm asymmetry in the right breast posterior depth upper region seen on the mediolateral oblique view only. This finding localizes to the lateral breast on tomosynthesis views. This finding corresponds to asymmetry seen on recent screening mammogram 01/30/2023. No other significant masses or calcifications are seen in the breast. IMPRESSION: INCOMPLETE: NEEDS ADDITIONAL IMAGING EVALUATION Right breast 0.8 cm asymmetry in the upper posterior breast that triangulates to upper outer quadrant on tomosynthesis views. Finding resembles a lymph node. An ultrasound is recommended for further evaluation and is scheduled to immediately follow this examination. Based on the Tyrer Cuzick model (a risk assessment model) the patient's lifetime risk is 5.9% and her 10 year risk is 2.5%. According to the ACR, ACS, and NCCN guidelines, an annual breast MRI exam along with mammogram is recommended if the patient's lifetime risk is 20% or greater. This exam was interpreted at Station ID: [id number]. NOTE: For mammograms, a report in lay terms will be sent to the patient. Approximately 15% of breast malignancies will not be visualized mammographically. In the management of a palpable breast mass, a negative mammogram must not discourage biopsy of a clinically suspicious lesion. Electronically Signed By: Sera Palacio M.D., PH.D eb/:02/16/2023 15:25:07 ACR BI-RADS Category 0: Incomplete 3340F
--- NOTE | 2023-02-16 13:27 | DI.US.S_ITS ---
LIMITED ULTRASOUND OF RIGHT BREAST: 02/16/2023 CLINICAL: Patient returns today to evaluate a focal asymmetry in the right breast. Comparison is made to exams dated: 02/16/2023 mammogram and 01/30/2023 mammogram - [facility]. Color flow and real-time ultrasound of the right breast 9 o'clock region were performed. There is a 0.9 cm x 0.5 cm x 0.6 cm oval mass with a circumscribed margin in the right breast at 9 o'clock, 10 cm from the nipple. This oval mass is hypoechoic and there is suggestion of posterior acoustic enhancement. Color flow imaging demonstrates that there is no vascularity. This finding may correspond to the mammographic asymmetry. IMPRESSION: PROBABLY BENIGN Right breast 0.9 cm oval circumscribed mass at 9 o'clock. Finding may represent cluster of cysts and is probably benign. A follow-up mammogram and an ultrasound in 6 months is recommended to demonstrate stability. Findings and recommendations were conveyed to the patient during today's evaluation. This exam was interpreted at Station ID: [id number]. Electronically Signed By: Sera Palacio M.D., PH.D eb/:02/17/2023 00:59:08 letter sent: Followup Recommended Ultrasound BI-RADS: 3 Probably benign
== END ==
PROVIDERS: Family Provider Student in an Organized Health Care Education/Training Program; PCP Student in an Organized Health Care Education/Training Program; Referring Provider Student in an Organized Health Care Education/Training Program; Visit Provider Student in an Organized Health Care Education/Training Program
DX: N60.09 Solitary cyst of unspecified breast; R92.8 Other abnormal and inconclusive findings on diagnostic imaging of breast; N63.15 Unspecified lump in the right breast, overlapping quadrants
CPT/HCPCS: 76642; 77065; G0279

== ENCOUNTER → 2023-07-06 11:22 | Outpatient (CLI) | payer OTHER, SELFPAY ==
[2023-07-06 12:59] LABS: Add Manual Diff / Slide Review NO; Basophils Absolute Auto 0 /uL (0-100); Basophils Percent Auto 0.7 % (0-2); Eosinophils Absolute Auto 100 /uL (0-450); Eosinophils Percent Auto 3.9 % (2-4); Hematocrit 34.7 % (36-46); Hemoglobin 12.4 g/dL (12.0-16.0); Lymphocytes Absolute Auto 1000 /uL (1100-4500); Lymphocytes Percent Auto 36.8 % (25-40); Mean Corpuscular HGB Conc 35.9 % (30-36); Mean Corpuscular Hemoglobin 35.4 PG (26-34); Mean Corpuscular Volume 98.6 fL (80-100); Monocytes Absolute Auto 400 /uL (0-900); Monocytes Percent Auto 13.5 % (3-14); Neutrophils Absolute Auto 1300 /uL (1500-7000); Neutrophils Percent Auto 45.1 % (50-75); Platelet Count 75 X10^3/uL (150-400); Red Blood Cell Count 3.51 X10^6/uL (4.0-5.2); Red Cell Distribution Width 14.3 % (11.6-14.8); White Blood Cell Count 2.8 X10^3/uL (4.5-11.0)
== END ==
PROVIDERS: Family Provider Student in an Organized Health Care Education/Training Program; PCP Student in an Organized Health Care Education/Training Program; Referring Provider Student in an Organized Health Care Education/Training Program; Visit Provider Student in an Organized Health Care Education/Training Program
DX: D64.9 Anemia, unspecified (principal); D61.818 Other pancytopenia
CPT/HCPCS: 36415; 85025

== ENCOUNTER → 2023-10-09 09:42 | Outpatient (CLI) | payer OTHER, SELFPAY ==
--- NOTE | 2023-10-09 09:44 | DI.RAD.S_ITS ---
PROCEDURE: XR SHOULDER RT MIN 2V INDICATIONS: Right shoulder pain TECHNIQUE: 3 views of the shoulder were acquired. COMPARISON: [facility], CR, XR SHOULDER LT MIN 2V, 05/25/2021, 10:11. FINDINGS: Bones: No fractures or dislocations. [id number] acromioclavicular joint and glenohumeral joint osteoarthritic changes are seen. No suspicious bony lesions. Visualized ribs appear intact. Soft tissues: No suspicious soft tissue calcifications. 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 No fracture or dislocation. No gross soft tissue abnormalities. Dictated by: Alli Dillard M.D. on 10/09/2023 at 14:51 Approved by: Alli Dillard M.D. on 10/09/2023 at 14:55
[2023-10-09 10:58] LABS: Add Manual Diff / Slide Review NO; Basophils Absolute Auto 0 /uL (0-100); Basophils Percent Auto 0.6 % (0-2); Eosinophils Absolute Auto 100 /uL (0-450); Eosinophils Percent Auto 2.2 % (2-4); Hematocrit 34.2 % (36-46); Hemoglobin 12.4 g/dL (12.0-16.0); Lymphocytes Absolute Auto 700 /uL (1100-4500); Mean Corpuscular HGB Conc 36.1 % (30-36); Mean Corpuscular Hemoglobin 35.2 PG (26-34); Mean Corpuscular Volume 97.3 fL (80-100); Monocytes Absolute Auto 300 /uL (0-900); Monocytes Percent Auto 11.1 % (3-14); Neutrophils Absolute Auto 1500 /uL (1500-7000); Neutrophils Percent Auto 58.1 % (50-75); Platelet Count 66 X10^3/uL (150-400); Red Blood Cell Count 3.52 X10^6/uL (4.0-5.2); Red Cell Distribution Width 14.3 % (11.6-14.8); White Blood Cell Count 2.5 X10^3/uL (4.5-11.0)
[2023-10-09 11:04] LABS: Hemoglobin A1C% w Est Avg Glu 4.5 % (4.0-6.0)
[2023-10-09 11:26] LABS: Alanine Aminotransferase 44 IU/L (<35); Albumin 3.9 g/dL (3.5-5.0); Albumin Globulin Ratio 1.1 (1.0-2.8); Alkaline Phosphatase 169 U/L (38-126); Aspartate Aminotransferase 50 IU/L (14-36); BUN Creatinine Ratio 28.1 (6-22); Bilirubin Total 0.9 mg/dL (0.2-1.3); Blood Urea Nitrogen 18 mg/dL (7-17); Carbon Dioxide 24 mmol/L (22-32); Chloride 105 mmol/L (98-107); Cholesterol 159 mg/dL (140-199); Estimated Glomerular Filt Rate > 60 mL/min (>60); Globulin 3.5 g/dL (1.7-4.1); Glucose 98 mg/dL (80-110); HDL Cholesterol 51 mg/dL (40-60); HEMOLYSIS < 15 (0-50); LDL Cholesterol Calculated 80 mg/dL (<100); Potassium 4.5 mmol/L (3.4-5.1); Sodium 136 mmol/L (137-145); Total Protein 7.4 g/dL (6.3-8.2); Triglycerides 139 mg/dL (35-150)
[2023-10-09 12:04] LABS: Creatinine Urine Random 108.81 mg/dL
[2023-10-09 12:11] LABS: Microalbumin Urine Random < 0.6 mg/dL (0-1.6)
== END ==
PROVIDERS: Family Provider Student in an Organized Health Care Education/Training Program; PCP Student in an Organized Health Care Education/Training Program; Referring Provider Student in an Organized Health Care Education/Training Program; Visit Provider Student in an Organized Health Care Education/Training Program
DX: M19.011 Primary osteoarthritis, right shoulder (principal); M25.511 Pain in right shoulder; I10 Essential (primary) hypertension; E11.9 Type 2 diabetes mellitus without complications
CPT/HCPCS: 36415; 73030; 80053; 80061; 82043; 82570; 83036; 85025

== ENCOUNTER 2023-10-23 17:53 | Emergency (ER) | payer OTHER, SELFPAY ==
[2023-10-23 17:55] VITALS: BP 127/64; PULSE 80; RESP 18; TEMP 36.8; O2SAT 99; BMI 28.1
[2023-10-23 19:47] VITALS: BP 110/62; PULSE 67; RESP 16; O2SAT 98
--- NOTE | 2023-10-23 19:56 | ED_ITS ---
HPI - General Adult General Chief complaint: Upper Respiratory Symptoms Stated complaint: COVID+, sent by PCP low oxygen level Time Seen by Provider: 10/23/23 18:03 Source: patient Mode of arrival: Ambulatory History of Present Illness HPI narrative: Patient is a 63-year-old female who tested positive for COVID yesterday. Is having body aches. States she tested her home oxygen at home and it was in the 70s. This is on a home pulse oximeter. She contacted her primary doctor who advised that she come to the emergency department. She stated that since that time she has realized that maybe it was the gel nail Bulgarian that she was wearing that potentially gave the false low oxygen reading. She did just return from a trip to [place]. Related Data Home Medications Medication Instructions Recorded Confirmed Lactobacillus acidophilus 10 10,000 mmu cells PO DAILY Stomach 03/20/23 10/09/23 billion cell capsule (Probiotic) biotin 10,000 mcg capsule cap PO Hair loss 03/20/23 10/09/23 magnesium oxide 500 mg capsule mg PO Leg cramps 03/20/23 10/09/23 omega 9-ive-tjd-fish oil 1,000 mg 1 cap PO DAILY Health 03/20/23 10/09/23 (120 mg-180 mg) capsule (Fish Oil) omeprazole 40 mg capsule,delayed 40 mg PO DAILY Gastric Ulcer 10/08/23 10/08/23 release Previous Rx's Medication Instructions Recorded metformin 1,000 mg tablet 1,000 mg PO DAILY #90 tabs 11/20/22 zolpidem 10 mg tablet 10 mg PO BEDTIME PRN insomnia #30 04/13/23 tabs tirzepatide 7.5 mg/0.5 mL 7.5 mg (0.5 mL) SUBCUT QWEEK #2 mL 04/23/23 subcutaneous pen injector acyclovir 800 mg tablet 800 mg PO DAILY #90 tabs 09/10/23 lisinopril 5 mg tablet 5 mg PO DAILY #90 tabs 10/09/23 Allergies Allergy/AdvReac Type Severity Reaction Status Date / Time acetaminophen [From TYLOX] Allergy Severe itchy,rash,trouble Verified 10/09/23 09:18 breathing trazodone Allergy Intermediate Hives Verified 10/09/23 09:18 hydromorphone [From Dilaudid] Allergy Mild itchy Verified 10/09/23 09:18 codeine [CODEINE] Allergy Unknown hives Verified 10/09/23 09:18 hydrocodone [HYDROCODONE] Allergy Unknown hives Verified 10/09/23 09:18 prochlorperazine Allergy Unknown hallucinati Verified 10/09/23 09:18 [From COMPAZINE] ons sumatriptan [From IMITREX] Allergy Unknown rash and Verified 10/09/23 09:18 swelling aspirin Allergy Verified 10/09/23 09:18 caffeine [From Cafergot] Allergy Verified 10/09/23 09:18 Penicillins Allergy Verified 10/09/23 09:18 ergotamine [ERGOTAMINE] AdvReac Unknown paralyzining Verified 10/09/23 09:18 feeling from the waste down oxycodone [From PERCOCET] AdvReac Unknown ulcers Verified 10/09/23 09:18 Blue Dye Allergy Mild Hives Uncoded 10/09/23 09:18 [id number] Allergy Unknown rash at Uncoded 10/09/23 09:18 injection site Review of Systems Review of Systems Narrative: See HPI Patient History Medical History Vitamin D deficiency Autoimmune hepatitis Osteoarthritis (~2006) Migraines Shoulder pain (~2012) Carpal tunnel syndrome (~2004) Skin rash (~2005) Chicken pox (~1963) Ovarian cyst (~2006) Herpes (~1997) Fibroids (~2006) Hypertension (~1999) Surgical History Anesthesia History of surgery (~2003) History of liver biopsy (~2001) History of release of tendon (~1989) Status post tubal ligation (~2006) Status post laparoscopic cholecystectomy (~1986) History of tonsillectomy (~1963) Family History Brother Age: 68 Hypertension Hyperlipidemia Father Hypertension Hyperlipidemia Brother Cancer Brother Cancer Mother No problems noted. Social History Smoking Status: Never smoker eating out: rarely or never Type(s) of exercise: walking Smoking Status: Never smoker alcohol intake frequency: holidays/special occasions only Substance Use Type: does not use Exam Initial Vital Signs Initial Vital Signs: Vital Signs Temperature 98.2 F 10/23/23 17:55 Pulse Rate 80 10/23/23 17:55 Respiratory Rate 18 10/23/23 17:55 Blood Pressure 127/64 10/23/23 17:55 Pulse Oximetry 99 10/23/23 17:55 Oxygen Delivery Method Room Air 10/23/23 17:55 Const General: cooperative and No ill appearing Resp Effort & Inspection: normal respiratory effort Cardio Rate: regular rate GI Inspection: normal to inspection and non-distended Neuro General: patient alert, patient awake and moves all extremities Course Vital Signs Vital signs: Vital Signs - 8 hr 10/23/23 17:55 10/23/23 19:47 Temperature 98.2 F Pulse Rate 80 67 Respiratory Rate 18 16 Blood Pressure 127/64 110/62 Pulse Oximetry 99 98 Oxygen Delivery Method Room Air Room Air Medical Decision Making MDM Narrative Medical decision making narrative: Patient did have a positive home COVID test she was having symptoms that are consistent with COVID. No indication to retest today. She was not hypoxic here in the ER and she was not tachypneic. There was no indication for antibiotics. She ambulated around the emergency department and did not become hypoxic. No indication for admission to the hospital. Discuss this with the patient. Recommended Tylenol and ibuprofen for body aches. She was given return precaut ions. Discharge Plan Departure Patient Disposition: Home Clinical Impression: COVID-19 Instructions: COVID-19 Activity Restrictions/Additional Instructions: Continue to take all of your medications as directed. You can take Tylenol for any fevers or body aches. Be sure you are staying hydrated. Return to the emergency department for new symptoms. Prescriptions: No Action magnesium oxide 500 mg capsule PO biotin 10,000 mcg capsule PO Probiotic 10 billion cell capsule 10,000 mmu cells PO DAILY omega 5-rqb-wuf-fish oil [Fish Oil] 1,000 mg (120 mg-180 mg) capsule 1 cap PO DAILY tirzepatide 7.5 mg/0.5 mL pen injector 7.5 mg SUBCUT QWEEK Qty: 2 3RF omeprazole 40 mg capsule,delayed release(DR/EC) 40 mg PO DAILY Patient Comments: GI doctor from [facility] prescribed lisinopril 5 mg tablet 5 mg PO DAILY Qty: 90 3RF metformin 1,000 mg tablet 1,000 mg PO DAILY Qty: 90 1RF Hold Instructions: needs labs done zolpidem 10 mg tablet 10 mg PO BEDTIME PRN (Reason: insomnia) Qty: 30 5RF acyclovir 800 mg tablet 800 mg PO DAILY Qty: 90 1RF Referrals: Fatuma Meadows MD [Primary Care Provider] - Stand Alone Forms: Patient Portal/API
== END 2023-10-23 20:05 | disposition home or self-care (01) ==
PROVIDERS: Emergency Provider Emergency Medicine; Family Provider Student in an Organized Health Care Education/Training Program; PCP Student in an Organized Health Care Education/Training Program
DX: U07.1 COVID-19 (principal); Z79.899 Other long term (current) drug therapy
CPT/HCPCS: 99281

== ENCOUNTER → 2023-11-02 17:23 | Outpatient (CLI) | payer OTHER, SELFPAY ==
--- NOTE | 2023-11-02 17:24 | DI.MRI.S_ITS ---
PROCEDURE: MR SHOULDER RT WO CON INDICATIONS: ADHESIVE CAPSULITIS OF RT SHOULDER TECHNIQUE: Noncontrast oblique coronal T2 fast spin echo with fat saturation, oblique sagittal T1 spin echo and T2 fast spin echo with fat saturation, axial T1 spin echo and T2 fast spin echo with fat saturation through the shoulder. COMPARISON: [facility], CR, XR SHOULDER RT MIN 2V, 10/09/2023, 9:44. [facility], MR, MR SHOULDER LT WO CON, 06/21/2021, 16:21. FINDINGS: Image quality: Excellent. Rotator cuff: The supraspinatus and the infraspinatus are grossly unremarkable. The teres minor is unremarkable. Mild tendinosis of the subscapularis, without tear. No muscle edema. Mild fatty infiltration of the superior fibers of the subscapularis. Bones and bursae: Moderate degenerative changes of the acromioclavicular joint. Type 1 acromion. No os acromiale. Mild subacromial/subdeltoid bursitis. Mild subchondral cystic changes in the posterior aspect of greater tuberosity, reactive. Mild subchondral marrow edema in the lesser tuberosity, favor reactive as well. No acute fracture. No focal chondral defect about the glenohumeral joint. Capsule and soft tissues: [employer] complex is noted. Tear of the posterior labrum. Mild tenosynovitis of the extra-articular biceps tendon. The intra-articular biceps tendon is intact. No significant glenohumeral effusion. No subcoracoid bursitis. IMPRESSION: 1. Moderate degenerative changes of the acromioclavicular joint. 2. Mild tendinosis of the subscapularis, without tear. Mild associated fatty infiltration of the superior fiber. 3. Mild tenosynovitis of the extra-articular biceps tendon. Dictated by: Brittani Lindo M.D. on 11/06/2023 at 9:52 Approved by: Brittani Lindo M.D. on 11/06/2023 at 10:03
== END ==
PROVIDERS: Family Provider Student in an Organized Health Care Education/Training Program; PCP Student in an Organized Health Care Education/Training Program; Referring Provider Orthopaedic Surgery; Visit Provider Orthopaedic Surgery
DX: S43.431A Superior glenoid labrum lesion of right shoulder, initial encounter (principal); M75.01 Adhesive capsulitis of right shoulder; M75.51 Bursitis of right shoulder; M65.811 Other synovitis and tenosynovitis, right shoulder
CPT/HCPCS: 73221

== ENCOUNTER → 2023-11-12 13:23 | Outpatient (CLI) | payer OTHER, SELFPAY ==
--- NOTE | 2023-11-12 13:24 | DI.MG.S_ITS ---
UNILATERAL RIGHT DIGITAL DIAGNOSTIC MAMMOGRAM 3D/2D SHORT-TERM FOLLOW-UP: 11/12/2023 CLINICAL: Patient returns for a 6 month follow up of the right breast. Comparison is made to exams dated: 02/16/2023 mammogram and 01/30/2023 mammogram - [facility]. There are scattered areas of fibroglandular density in the right breast (category b / 25%-50% glandular tissue). Redemonstration of previously described 0.8 cm oval asymmetry in the right breast posterior depth superior region seen on the mediolateral oblique view only. This is not significantly changed. No other significant masses or calcifications are seen in the breast. IMPRESSION: INCOMPLETE: NEEDS ADDITIONAL IMAGING EVALUATION The 0.8 cm oval asymmetry in the right breast is indeterminate. An ultrasound is recommended for further evaluation and is scheduled to immediately follow this examination. Based on the Tyrer Cuzick model (a risk assessment model) the patient's lifetime risk is 5.8% and her 10 year risk is 2.5%. According to the ACR, ACS, and NCCN guidelines, an annual breast MRI exam along with mammogram is recommended if the patient's lifetime risk is 20% or greater. This exam was interpreted at Station ID: [id number]. NOTE: For mammograms, a report in lay terms will be sent to the patient. Approximately 15% of breast malignancies will not be visualized mammographically. In the management of a palpable breast mass, a negative mammogram must not discourage biopsy of a clinically suspicious lesion. Electronically Signed By: Chapo Chapman M.D. aty/:11/12/2023 14:23:01 ACR BI-RADS Category 0: Incomplete 3340F
--- NOTE | 2023-11-12 13:24 | DI.US.S_ITS ---
LIMITED ULTRASOUND OF RIGHT BREAST: 11/12/2023 CLINICAL: 6 month follow up right breast. Comparison is made to exams dated: 11/12/2023 mammogram, 02/16/2023 ultrasound, 02/16/2023 mammogram, 01/30/2023 mammogram - [facility], 02/09/2011 mammogram, and 07/06/2009 mammogram - outside facility. Color flow and real-time ultrasound of the right breast 9 o'clock region were performed. Saul scale images of the real-time examination were reviewed. There is a 0.9 cm x 0.3 cm x 0.4 cm oval mass with a circumscribed margin in the right breast at 9 o'clock anterior depth 9 cm from the nipple. This oval mass is hypoechoic. This abnormality is not significantly changed and correlates with mammography findings. IMPRESSION: PROBABLY BENIGN The 0.9 cm x 0.3 cm x 0.4 cm oval mass in the right breast is probably benign. A follow-up bilateral mammogram and a right ultrasound in 6 months is recommended to demonstrate stability. Findings and recommendations were conveyed to the patient during today's evaluation. This exam was interpreted at Station ID: [id number]. Electronically Signed By: Chapo Chapman M.D. aty/:11/12/2023 15:13:43 letter sent: Followup Recommended Ultrasound BI-RADS: 3 Probably benign
== END ==
LOC: MAMMO 13:24
PROVIDERS: Family Provider Student in an Organized Health Care Education/Training Program; PCP Student in an Organized Health Care Education/Training Program; Referring Provider Student in an Organized Health Care Education/Training Program; Visit Provider Student in an Organized Health Care Education/Training Program
DX: R92.8 Other abnormal and inconclusive findings on diagnostic imaging of breast (principal); N63.15 Unspecified lump in the right breast, overlapping quadrants; R92.321 Mammographic fibroglandular density, right breast
CPT/HCPCS: 76642; 77065; G0279

== ENCOUNTER → 2023-11-13 | Outpatient (CLI) | payer OTHER, SELFPAY ==
--- NOTE | 2023-11-13 15:53 | DI.ECHO.S_ITS ---
[facility] : : [id number] : [place] : : [id number] : : Phone: [phone] Echocardiogram Report + + :Name: SANDRITA GOODRICH CStudy Date: 11/13/2023 Height: 65 in : :[facility] ReadingLocation: Weight: 164 lb : : Gender: Female BSA: 1.8 m2 : :: 1960 Age: 63 yrs BP: 110/74 mmHg: :Reason For Study: PORTAL HYPERTENSION : :Ordering Physician: YAZ : :JANE HARDING MD Performed By: Ángel Colon : :Referring: UNSPECIFIED : + + Interpretation Summary 1. The left ventricular contractility is normal. Estimated ejection fraction is greater than 55% with no segmental wall motion abnormalities. No LVH. Unable to comment on diastolic function. 2. The right ventricular contractility is normal. 3. All cardiac chambers are of normal size. 4. No significant valvular abnormalities. 5. No obvious intracardiac shunts. 6. No obvious intracardiac masses nor thrombi. 7. No hemodynamically significant pericardial effusion. 8. Low right-sided filling pressures. Conclusion: Normal biventricular systolic function with no significant valvular abnormalities. Procedure: A two-dimensional transthoracic echocardiogram with color flow and Doppler was performed. The study quality was technically adequate. There is no prior echocardiogram noted for this patient. The patient was in sinus rhythm with heart rates between 82-88 bpm during the exam. Left Ventricle: The left ventricle is normal in size. The ejection fraction is estimated to be 55-60%. Right Ventricle: The right ventricle is normal in size, thickness and function. The right ventricular systolic function is normal. Atria: The left atrial size is normal. Right atrial size is normal. The interatrial septum grossly appears intact with no obvious evidence for an atrial septal defect. Mitral Valve: The mitral valve is normal. There is no mitral valve stenosis. There is no mitral regurgitation noted. Aortic Valve: The aortic valve is trileaflet. There is no aortic valve stenosis. There is trace aortic regurgitation. Tricuspid Valve: The tricuspid valve is normal. There is no tricuspid stenosis. No tricuspid regurgitation. Pulmonic Valve: The pulmonic valve is not well visualized. There is no pulmonic valvular stenosis. There is no pulmonic valvular regurgitation. Great Vessels: The aortic root is normal size. The dimensions of the ascending aorta are normal. The IVC is of normal diameter and collapses greater than 50% with a sniff. This suggests a low right atrial pressure of 3 mm Hg. Pericardium/ Pleura There is no pericardial effusion. There is no pleural effusion. MMode/2D Measurements & Calculations LVIDd: 4.2 cm LVOT diam: 2.1 cm LVIDs: 2.6 cm Ao root diam: 3.0 cm FS: 39.4 % asc Aorta Diam: 3.1 cm IVSd: 0.92 cm Ao Arch Diam (Prox Trans): 1.6 cm LVPWd: 0.93 cm LV andersen. diameter/BSA (cm/m^2): 2.3 LV sys. diameter/BSA (cm/m^2): 1.4 LA A2 area: 17.2 cm2 RA long axis: 4.4 cm LA A4 area: 16.1 cm2 RA area: 10.0 cm2 LA length (vol): 5.3 cm RA vol: 19.5 ml LA vol: 44.1 ml RA : 10.7 ml/m2 LA vol index: 24.3 ml/m2 IVC diam: 1.7 cm RVD1 (basal): 2.8 cm RVD2 (mid): 2.5 cm TAPSE: 2.1 cm Doppler Measurements & Calculations Ao V2 max: 162.2 cm/sec LVOT Max Dg: 129.4 cm/sec Ao V2 mean: 116.8 cm/sec LV V1 max P.7 mmHg Ao max P.5 mmHg LV V1 VTI: 25.4 cm Ao mean P.1 mmHg JUDY(I,D): 2.9 cm2 Ao V2 VTI: 30.7 cm JUDY(V,D): 2.8 cm2 sev ratio: 0.83 JUDY indexed to BSA (cm^2/m^2): 1.6 MV E max dg: 57.1 cm/sec PA V2 max: 119.8 cm/sec MV A max gd: 84.9 cm/sec PA V2 mean: 74.7 cm/sec MV E/A: 0.67 PA mean P.7 mmHg Med Peak E' Dg: 5.7 cm/sec PA pr(Accel): 48.2 mmHg E/E' med: 10.0 Lat Peak E' Dg: 11.1 cm/sec E/E' lat: 5.2 E/e' average: 7.6 MV dec time: 0.26 sec SV(LVOT): 88.2 ml Reading Physician:
== END ==
PROVIDERS: Family Provider Student in an Organized Health Care Education/Training Program; PCP Student in an Organized Health Care Education/Training Program; Referring Provider Radiology Vascular & Interventional Radiology; Visit Provider Radiology Vascular & Interventional Radiology
DX: K76.6 Portal hypertension (principal)
CPT/HCPCS: 93306

== ENCOUNTER 2024-01-21 11:56 | Emergency (ER) | payer OTHER, SELFPAY ==
[2024-01-21] VITALS (12 sets, daily range): BP systolic 114–169; BP diastolic 58–87; PULSE 93–124; RESP 16–18; TEMP 36.8; O2SAT 98–100; BMI 25.2
--- NOTE | 2024-01-21 12:17 | DI.RAD.S_ITS ---
PROCEDURE: XR CHEST 1V INDICATIONS: chest pain TECHNIQUE: One view of the chest was acquired. COMPARISON: [facility], CT, CT CHEST ABDOMEN PELVIS WITH CONTRAST, 05/17/2023, 8:18. [facility], CR, XR CHEST 1V, 10/23/2018, 3:53. FINDINGS: Surgical changes and devices: Partially identified cervical fusion hardware. Right upper quadrant surgical clips. Punctate surgical clip overlying the right 11th posterior rib. Lungs and pleura: Lungs are clear. No pleural effusions or pneumothorax. Mediastinum: Mediastinal contours appear normal. Heart size is normal. Bones and chest wall: No suspicious bony lesions. Overlying soft tissues appear unremarkable. IMPRESSION: No acute cardiothoracic process. Dictated by: Cameron Dockery M.D. on 01/21/2024 at 12:39 Approved by: Cameron Dockery M.D. on 01/21/2024 at 12:43
--- NOTE | 2024-01-21 12:20 | DI.CT.S_ITS ---
PROCEDURE: CT HEAD/BRAIN WO CON INDICATIONS: confusion 2-3weeks, had tips procedure in late december. TECHNIQUE: Noncontrast 4.5 mm thick angled axial sections acquired from the foramen magnum to the vertex, with coronal and sagittal reformats. For radiation dose reduction, the following was used: automated exposure control, adjustment of mA and/or kV according to patient size. COMPARISON: None. FINDINGS: Image quality: Diagnostic. CSF spaces: Basal cisterns are patent. No extra-axial fluid collections. Ventricles are normal in size and shape. Brain: No midline shift. No intracranial masses or hemorrhage. Saul-white matter interface is normal. Skull and face: Calvarium and visualized facial bones are intact, without suspicious lesions. Sinuses: Visualized sinuses and mastoids are clear. IMPRESSION: No acute intracranial pathology. Dictated by: Cameron Dockery M.D. on 01/21/2024 at 12:43 Approved by: Cameron Dockery M.D. on 01/21/2024 at 12:45
--- NOTE | 2024-01-21 12:21 | EKG_ITS ---
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
[2024-01-21 12:34] LABS: Add Manual Diff / Slide Review NO; Basophils Absolute Auto 0 /uL (0-100); Basophils Percent Auto 0.4 % (0-2); Eosinophils Absolute Auto 200 /uL (0-450); Eosinophils Percent Auto 3.4 % (2-4); Hematocrit 36.8 % (36-46); Hemoglobin 13.1 g/dL (12.0-16.0); Lymphocytes Absolute Auto 1200 /uL (1100-4500); Lymphocytes Percent Auto 25.8 % (25-40); Mean Corpuscular HGB Conc 35.6 % (30-36); Mean Corpuscular Hemoglobin 36.2 PG (26-34); Mean Corpuscular Volume 101.7 fL (80-100); Monocytes Absolute Auto 600 /uL (0-900); Monocytes Percent Auto 12.4 % (3-14); Neutrophils Absolute Auto 2800 /uL (1500-7000); Platelet Count 104 X10^3/uL (150-400); Red Blood Cell Count 3.62 X10^6/uL (4.0-5.2); Red Cell Distribution Width 16.3 % (11.6-14.8); White Blood Cell Count 4.8 X10^3/uL (4.5-11.0)
[2024-01-21 12:40] LABS: INR 1.2 (0.9-1.3); Prothrombin Time 13.7 SECONDS (9.4-12.5)
[2024-01-21 12:42] LABS: PTT Partial Thromboplastin Tim 39 SECONDS (25.1-36.5)
[2024-01-21 12:44] LABS: Alanine Aminotransferase 63 IU/L (<35); Albumin Globulin Ratio 0.9 (1.0-2.8); Alkaline Phosphatase 186 U/L (38-126); Aspartate Aminotransferase 89 IU/L (14-36); BUN Creatinine Ratio 17.5 (6-22); Blood Urea Nitrogen 10 mg/dL (7-17); Calcium 9.7 mg/dL (8.4-10.2); Carbon Dioxide 23 mmol/L (22-32); Chloride 105 mmol/L (98-107); Creatine Kinase 213 U/L (30-135); Estimated Glomerular Filt Rate > 60 mL/min (>60); Globulin 4.4 g/dL (1.7-4.1); Glucose 120 mg/dL (80-110); HEMOLYSIS < 15 (0-50); Lipase 116 U/L (23-300); Magnesium 1.9 mg/dL (1.6-2.3); Potassium 3.5 mmol/L (3.4-5.1); Sodium 138 mmol/L (137-145); Total Protein 8.4 g/dL (6.3-8.2)
[2024-01-21 12:45] LABS: Acetaminophen < 10 ug/mL (10-30); Ethanol (ETOH) < 10 mg/dL; Salicylate < 1.0 mg/dL (<20)
[2024-01-21 12:47] LABS: Lactate (Lactic Acid) 4.1 mmol/L (0.7-2.1)
[2024-01-21 12:56] LABS: NT-proBNP (BNP-Adult 18+) < 20 pg/mL (<125); Troponin I < 0.012 ng/mL (0.01-0.034)
--- NOTE | 2024-01-21 12:57 | PC.NURSE ---
Pt states that she had TIPS procedure 12/2023. Reports that she has been experiencing some confusion and memory loss. 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 States that she has been having some difficulty finding the right words lately. Denies DAMON, blurry vision.
[2024-01-21 13:01] LABS: Ammonia (NH3) 118 umol/L (9-30)
[2024-01-21 13:02] LABS: Prolactin 10.6 ng/mL (3.0-18.6)
[2024-01-21 13:16] LABS: Thyroid Stimulating Hormone 3.26 uIU/mL (0.47-4.68)
[2024-01-21] MEDS: SODIUM CHLORIDE 0.9% 500 ML 1000 ML IV (13:25)
[2024-01-21 13:26] LABS: Appearance Urine UA CLEAR; Bilirubin Urine UA NEGATIVE (NEGATIVE); Color Urine UA YELLOW; Glucose Urine UA NEGATIVE (Negative); Ketones Urine UA NEGATIVE (NEGATIVE); Leukocyte Esterase Urine UA NEGATIVE (NEGATIVE); Nitrite Urine UA NEGATIVE (Negative); Occult Blood Urine UA NEGATIVE (Negative); Protein Urine UA NEGATIVE (Negative); Specific Gravity Urine UA <=1.005 (1.000-1.035); pH Urine UA 6.5 (4.5-8.0)
[2024-01-21 13:27] LABS: Ur Creatinine Normal (Normal); Ur Specific Gravity Normal (Normal); Urine Amphetamines Negative (Negative); Urine Barbiturates Negative (Negative); Urine Benzodiazepines Negative (Negative); Urine Cocaine Negative (Negative); Urine MDMA Negative (Negative); Urine Methadone Negative (Negative); Urine Methamphetamines Negative (Negative); Urine Opiates Negative (Negative); Urine Oxycodone Negative (Negative); Urine Phencyclidine Negative (Negative); Urine THC Negative (Negative); Urine Tricyclic Antidepressant Negative (Negative); Urine Volume 10mL (spun); Urine pH Normal (Normal)
[2024-01-21 13:29] LABS: Bacteria Urine None Seen; Calcium Oxalate Crystals Urine Few; Culture Indicated Urine Cult Not Indicated; RBC Urine None Seen (0-5/HPF); Squamous Epithelial Cell Urine None Seen (0-5/HPF); WBC Urine None Seen (0-5/HPF)
[2024-01-21] MEDS: LACTULOSE 20 GM/30 ML SOLUTION PO (13:33)
[2024-01-21 14:00] LABS: Reflexed Lactate in 2 Hours Y
--- NOTE | 2024-01-21 14:01 | ED.GENADULT ---
HPI - General Adult General Chief complaint: Dizziness Stated complaint: memory loss, disoriented and dizziness Time Seen by Provider: 01/21/24 12:20 Source: patient, RN notes reviewed and old records reviewed Mode of arrival: Ambulatory Limitations: no limitations History of Present Illness HPI narrative: 63-year-old female history of autoimmune hepatitis, cirrhosis, gastric varices with banding, hypertension, diabetes, TIPS procedure on December 23 [facility]. Patient presents with complaint of increased confusion, word loss and dizziness which has been present for the last several weeks and feels like her memory has been impaired since that procedure. Friends and family have noticed a changes well do not noticed any acute changes today she would primary care appointment which was canceled prompting her to present to the ED. patient states she was just been forgetful, has had memory issues and been confused had some difficulty with speech but mostly memory issues. She has been able to move and walk without issue no new numbness tingling or weakness. No fevers no cold cough or congestion. No chest pain or shortness of breath. She vomited once a week ago, had some mild nausea today. Denies any black or bloody stools no diarrhea or constipation, no urinary symptoms. No swelling of her extremities. Patient states she was given a prescription for lactulose has not been taking it regularly she states directions unclear if she was supposed to continue it or stop it. She does have follow up with Gastroenterology on February 06. She has call to try to talk with IR or Gastroenterology but has not had any luck. She had an appointment today with her primary care physician but her appointment was canceled as they had to deliver a baby. Related Data Home Medications Medication Instructions Recorded Confirmed Lactobacillus acidophilus 10 10,000 mmu cells PO DAILY Stomach 03/20/23 12/18/23 billion cell capsule (Probiotic) biotin 10,000 mcg capsule cap PO Hair loss 03/20/23 12/18/23 magnesium oxide 500 mg capsule mg PO Leg cramps 03/20/23 12/18/23 omega 7-ggn-ghi-fish oil 1,000 mg 1 cap PO DAILY Health 03/20/23 12/18/23 (120 mg-180 mg) capsule (Fish Oil) omeprazole 40 mg capsule,delayed 40 mg PO DAILY Gastric Ulcer 10/08/23 12/18/23 release Previous Rx's Medication Instructions Recorded acyclovir 800 mg tablet 800 mg PO DAILY #90 tabs 09/10/23 lisinopril 5 mg tablet 5 mg PO DAILY #90 tabs 10/09/23 zolpidem 10 mg tablet 10 mg PO BEDTIME PRN insomnia #30 10/25/23 tabs metformin 1,000 mg tablet 1,000 mg PO DAILY #90 tabs 11/07/23 tirzepatide 7.5 mg/0.5 mL 7.5 mg (0.5 mL) SUBCUT QWEEK #2 mL 12/11/23 subcutaneous pen injector (Ale) hydroxyzine HCl 25 mg tablet 25 mg PO ONCE PM #30 tabs 01/14/24 lactulose 20 gram oral packet 20 g PO DAILY #30 ea 01/21/24 lactulose 20 gram/30 mL oral 20 g (30 mL) PO DAILY #600 mL 01/21/24 solution Allergies Allergy/AdvReac Type Severity Reaction Status Date / Time acetaminophen [From TYLOX] Allergy Severe itchy,rash,trouble Verified 12/18/23 14:26 breathing trazodone Allergy Intermediate Hives Verified 12/18/23 14:26 hydromorphone [From Dilaudid] Allergy Mild itchy Verified 12/18/23 14:26 codeine [CODEINE] Allergy Unknown hives Verified 12/18/23 14:26 hydrocodone [HYDROCODONE] Allergy Unknown hives Verified 12/18/23 14:26 prochlorperazine Allergy Unknown hallucinati Verified 12/18/23 14:26 [From COMPAZINE] ons sumatriptan [From IMITREX] Allergy Unknown rash and Verified 12/18/23 14:26 swelling aspirin Allergy Verified 12/18/23 14:26 caffeine [From Cafergot] Allergy Verified 12/18/23 14:26 Penicillins Allergy Verified 12/18/23 14:26 ergotamine [ERGOTAMINE] AdvReac Unknown paralyzining Verified 12/18/23 14:26 feeling from the waste down oxycodone [From PERCOCET] AdvReac Unknown ulcers Verified 12/18/23 14:26 Blue Dye Allergy Mild Hives Uncoded 12/18/23 14:26 [id number] Allergy Unknown rash at Uncoded 12/18/23 14:26 injection site Review of Systems Review of Systems ROS Unobtainable: All systems reviewed & are unremarkable except as noted in HPI and below Patient History Medical History Vitamin D deficiency Autoimmune hepatitis Osteoarthritis (~2006) Migraines Shoulder pain (~2012) Carpal tunnel syndrome (~2004) Skin rash (~2005) Chicken pox (~1963) Ovarian cyst (~2006) Herpes (~1997) Fibroids (~2006) Hypertension (~1999) Surgical History Anesthesia History of surgery (~2003) History of liver biopsy (~2001) History of release of tendon (~1989) Status post tubal ligation (~2006) Status post laparoscopic cholecystectomy (~1986) History of tonsillectomy (~1963) Family History Brother Age: 68 Hypertension Hyperlipidemia Father Hypertension Hyperlipidemia Brother Cancer Brother Cancer Mother No problems noted. Social History Smoking Status: Never smoker eating out: rarely or never Type(s) of exercise: walking Smoking Status: Never smoker alcohol intake frequency: holidays/special occasions only Substance Use Type: does not use Exam Narrative Exam Narrative: GENERAL: Alert and oriented x three, well-appearing female in mild distress. No jaundice. HEENT: Head normocephalic, atraumatic, EOMI, no scleral icterus, pupils reactive, face symmetric, moist mucous membranes NECK: Supple, full range of motion CARDIOVASCULAR: Regular rate and rhythm without murmurs, rubs or gallops. RESPIRATORY: Breath sounds equal bilaterally, no wheezes rales or rhonchi. ABDOMEN: Soft, nontender. Normoactive bowel sounds all 4 quadrants. No guarding or rebound, rigidity, no mass : No CVA tenderness EXTREMITIES: Normal range of motion, no clubbing or edema. Neurovascularly intact NEUROLOGICAL: Cranial nerves II through XII grossly intact. Moving all extremities SKIN: Warm, dry, no petechiae, no rashes or lesions. Initial Vital Signs Initial Vital Signs: Vital Signs Temperature 98.3 F 01/21/24 12:02 Pulse Rate 124 H 01/21/24 12:02 Respiratory Rate 18 01/21/24 12:02 Blood Pressure 169/75 H 01/21/24 12:02 Pulse Oximetry 99 01/21/24 12:02 Oxygen Delivery Method Room Air 01/21/24 12:02 Course Orders Ordered: Discontinued Medications Sodium Chloride (Normal Saline 0.9%) 500 mls @ 1,000 mls/hr IV BOLUS ONE Stop: 01/21/24 13:49 Last Infusion: 01/21/24 14:56 Dose: Infused Documented By: Admin: 01/21/24 13:25 Dose: 1,000 mls/hr Documented By: LEESA Lactulose (Lactulose 20 Gm/30 Ml Solution) 20 gm PO NOW ONE Stop: 01/21/24 13:23 Last Admin: 01/21/24 13:33 Dose: 20 gm Documented By: CEASAR Ondansetron HCl (Ondansetron 4 Mg/2 Ml Inj) 4 mg IV NOW ONE Stop: 01/21/24 17:48 Last Admin: 01/21/24 17:55 Dose: 4 mg Documented By: CEASAR Vital Signs Vital signs: Vital Signs - 8 hr 01/21/24 12:02 01/21/24 12:17 01/21/24 13:16 Temperature 98.3 F Pulse Rate 124 H 113 H 97 H Respiratory Rate 18 16 Blood Pressure 169/75 H 151/87 H 124/58 L Pulse Oximetry 99 99 99 Oxygen Delivery Method Room Air Room Air 01/21/24 13:38 01/21/24 14:00 01/21/24 14:30 Temperature Pulse Rate 96 H 99 H 98 H Respiratory Rate 16 Blood Pressure 144/65 H 127/66 128/72 Pulse Oximetry 100 100 100 Oxygen Delivery Method Room Air 01/21/24 15:00 01/21/24 15:30 01/21/24 16:00 Temperature Pulse Rate 95 H 99 H 99 H Respiratory Rate 16 Blood Pressure 117/70 122/75 114/66 Pulse Oximetry 99 99 98 Oxygen Delivery Method Room Air 01/21/24 16:30 01/21/24 16:30 01/21/24 17:00 Temperature Pulse Rate 103 H Respiratory Rate Blood Pressure 128/64 127/69 Pulse Oximetry 99 Oxygen Delivery Method 01/21/24 17:00 01/21/24 17:30 01/21/24 17:30 Temperature Pulse Rate 97 H 93 H Respiratory Rate 16 Blood Pressure 135/74 135/74 Pulse Oximetry 98 99 Oxygen Delivery Method Room Air Medical Decision Making Lab Data 01/21/24 12:20 01/21/24 12:20 Labs: Lab Results 01/21/24 01/21/24 01/21/24 Range/Units 12:20 12:34 13:07 WBC 4.8 (4.5-11.0) X10^3/uL RBC 3.62 L (4.0-5.2) X10^6/uL Hgb 13.1 (12.0-16.0) g/dL Hct 36.8 (36-46) % MCV 101.7 H (80-100) fL MCH 36.2 H (26-34) PG MCHC 35.6 (30-36) % RDW 16.3 H (11.6-14.8) % Plt Count 104 L (150-400) X10^3/uL Neut % (Auto) 58.0 (50-75) % Lymph % (Auto) 25.8 (25-40) % Letcher % (Auto) 12.4 (3-14) % Eos % (Auto) 3.4 (2-4) % Baso % (Auto) 0.4 (0-2) % Neut # (Auto) 2800 (9177-9623) /uL Lymph # (Auto) 1200 (7806-8033) /uL Letcher # (Auto) 600 (0-900) /uL Eos # (Auto) 200 (0-450) /uL Baso # (Auto) 0 (0-100) /uL PT 13.7 H (9.4-12.5) SECONDS INR 1.2 (0.9-1.3) APTT 39 H (25.1-36.5) SECONDS Sodium 138 (137-145) mmol/L Potassium 3.5 (3.4-5.1) mmol/L Chloride 105 (98-107) mmol/L Carbon Dioxide 23 (22-32) mmol/L BUN 10 (7-17) mg/dL Creatinine 0.57 (0.52-1.04) mg/dL Estimated GFR > 60 (>60) mL/min BUN/Creatinine Ratio 17.5 (6-22) Glucose 120 H (80-110) mg/dL Lactate 4.1 H* (0.7-2.1) mmol/L Calcium 9.7 (8.4-10.2) mg/dL Magnesium 1.9 (1.6-2.3) mg/dL Total Bilirubin 2.0 H (0.2-1.3) mg/dL AST 89 H (14-36) IU/L ALT 63 H (<35) IU/L Alkaline Phosphatase 186 H (38-126) U/L Ammonia 118 H (9-30) umol/L Total Creatine Kinase 213 H (30-135) U/L Troponin I < 0.012 (0.01-0.034) ng/mL NT-Pro-B Natriuret Pep < 20 (<125) pg/mL Total Protein 8.4 H (6.3-8.2) g/dL Albumin 4.0 (3.5-5.0) g/dL Globulin 4.4 H (1.7-4.1) g/dL Albumin/Globulin Ratio 0.9 L (1.0-2.8) Lipase 116 (23-300) U/L TSH 3.26 (0.47-4.68) uIU/mL Prolactin 10.6 (3.0-18.6) ng/mL Urine Color Yellow Urine Appearance Clear Urine pH 6.5 (4.5-8.0) Ur Specific [place] <=1.005 (1.000-1.035) Urine Protein Negative (Negative) Urine Glucose (UA) Negative (Negative) g/dL Urine Ketones Negative (NEGATIVE) Urine Occult Blood Negative (Negative) Urine Nitrate Negative (Negative) Urine Bilirubin Negative (NEGATIVE) Urine Urobilinogen 4.0 H (0.2) E.U./dL Ur Leukocyte Esterase Negative (NEGATIVE) Urine RBC None seen (0-5/HPF) Urine WBC None seen (0-5/HPF) Ur Squamous Epith Cells None seen (0-5/HPF) Calcium Oxalate Crystal Few H Urine Bacteria None seen (None) Ur Culture Indicated? Cult not indicated Vol Urine Centrifuged 10ml (spun) Salicylates < 1.0 (<20) mg/dL U Opiates 300ng/mL cut Negative (Negative) Ur Oxycodone Screen Negative (Negative) Urine Methadone Screen Negative (Negative) Acetaminophen < 10 (10-30) ug/mL Ur Barbiturates Screen Negative (Negative) U Tricyclic Antidepress Negative (Negative) Ur Phencyclidine Scrn Negative (Negative) Ur Amphetamines Screen Negative (Negative) U Methamphetamines Scrn Negative (Negative) Ur MDMA Scrn (Ecstasy) Negative (Negative) U Benzodiazepines Scrn Negative (Negative) Urine Cocaine Screen Negative (Negative) U Marijuana (THC) Screen Negative (Negative) Urine Specific [place] (Normal) Ethyl Alcohol < 10 ( - 10) mg/dL Ur Creatinine (Normal) 01/21/24 01/21/24 Range/Units 13:07 14:15 WBC (4.5-11.0) X10^3/uL RBC (4.0-5.2) X10^6/uL Hgb (12.0-16.0) g/dL Hct (36-46) % MCV (80-100) fL MCH (26-34) PG MCHC (30-36) % RDW (11.6-14.8) % Plt Count (150-400) X10^3/uL Neut % (Auto) (50-75) % Lymph % (Auto) (25-40) % Letcher % (Auto) (3-14) % Eos % (Auto) (2-4) % Baso % (Auto) (0-2) % Neut # (Auto) (4353-5802) /uL Lymph # (Auto) (3126-7998) /uL Letcher # (Auto) (0-900) /uL Eos # (Auto) (0-450) /uL Baso # (Auto) (0-100) /uL PT (9.4-12.5) SECONDS INR (0.9-1.3) APTT (25.1-36.5) SECONDS Sodium (137-145) mmol/L Potassium (3.4-5.1) mmol/L Chloride (98-107) mmol/L Carbon Dioxide (22-32) mmol/L BUN (7-17) mg/dL Creatinine (0.52-1.04) mg/dL Estimated GFR (>60) mL/min BUN/Creatinine Ratio (6-22) Glucose (80-110) mg/dL Lactate 3.2 H (0.7-2.1) mmol/L Calcium (8.4-10.2) mg/dL Magnesium (1.6-2.3) mg/dL Total Bilirubin (0.2-1.3) mg/dL AST (14-36) IU/L ALT (<35) IU/L Alkaline Phosphatase (38-126) U/L Ammonia (9-30) umol/L Total Creatine Kinase (30-135) U/L Troponin I (0.01-0.034) ng/mL NT-Pro-B Natriuret Pep (<125) pg/mL Total Protein (6.3-8.2) g/dL Albumin (3.5-5.0) g/dL Globulin (1.7-4.1) g/dL Albumin/Globulin Ratio (1.0-2.8) Lipase (23-300) U/L TSH (0.47-4.68) uIU/mL Prolactin (3.0-18.6) ng/mL Urine Color Urine Appearance Urine pH Normal (4.5-8.0) Ur Specific [place] (1.000-1.035) Urine Protein (Negative) Urine Glucose (UA) (Negative) g/dL Urine Ketones (NEGATIVE) Urine Occult Blood (Negative) Urine Nitrate (Negative) Urine Bilirubin (NEGATIVE) Urine Urobilinogen (0.2) E.U./dL Ur Leukocyte Esterase (NEGATIVE) Urine RBC (0-5/HPF) Urine WBC (0-5/HPF) Ur Squamous Epith Cells (0-5/HPF) Calcium Oxalate Crystal Urine Bacteria (None) Ur Culture Indicated? Vol Urine Centrifuged Salicylates (<20) mg/dL U Opiates 300ng/mL cut (Negative) Ur Oxycodone Screen (Negative) Urine Methadone Screen (Negative) Acetaminophen (10-30) ug/mL Ur Barbiturates Screen (Negative) U Tricyclic Antidepress (Negative) Ur Phencyclidine Scrn (Negative) Ur Amphetamines Screen (Negative) U Methamphetamines Scrn (Negative) Ur MDMA Scrn (Ecstasy) (Negative) U Benzodiazepines Scrn (Negative) Urine Cocaine Screen (Negative) U Marijuana (THC) Screen (Negative) Urine Specific [place] Normal (Normal) Ethyl Alcohol ( - 10) mg/dL Ur Creatinine Normal (Normal) Imaging Data CT scan - head: Radiologist's Impression: [address] [address] [address] Scan Report Signed Patient: Nadeen Talbot MR#: [id number] : 1960 Acct:[id number] Age/Sex: 63 / F Date of Service: 01/21/24 Loc: ED Accession Number: [id number] Procedure: CT head/brain wo con Ordering Provider: Deb Kaye D.O. PROCEDURE: CT HEAD/BRAIN WO CON INDICATIONS: confusion 2-3weeks, had tips procedure in late december. TECHNIQUE: Noncontrast 4.5 mm thick angled axial sections acquired from the foramen magnum to the vertex, with coronal and sagittal reformats. For radiation dose reduction, the following was used: automated exposure control, adjustment of mA and/or kV according to patient size. COMPARISON: None. FINDINGS: Image quality: Diagnostic. CSF spaces: Basal cisterns are patent. No extra-axial fluid collections. Ventricles are normal in size and shape. Brain: No midline shift. No intracranial masses or hemorrhage. Saul-white matter interface is normal. Skull and face: Calvarium and visualized facial bones are intact, without suspicious lesions. Sinuses: Visualized sinuses and mastoids are clear. IMPRESSION: No acute intracranial pathology. Dictated by: Cameron Dockery M.D. on 01/21/2024 at 12:43 Approved by: Cameron Dockery M.D. on 01/21/2024 at 12:45 Chest x-ray: Radiologist's Impression: [place] [address] XRay Report Signed Patient: Nadeen Talbot MR#: [id number] : 1960 Acct:[id number] Age/Sex: 63 / F Date of Service: 01/21/24 Loc: ED Accession Number: [id number] Procedure: XR chest 1V Ordering Provider: Deb Kaye D.O. PROCEDURE: XR CHEST 1V INDICATIONS: chest pain TECHNIQUE: One view of the chest was acquired. COMPARISON: [facility], CT, CT CHEST ABDOMEN PELVIS WITH CONTRAST, 05/17/2023, 8:18. [facility], CR, XR CHEST 1V, 10/23/2018, 3:53. FINDINGS: Surgical changes and devices: Partially identified cervical fusion hardware. Right upper quadrant surgical clips. Punctate surgical clip overlying the right 11th posterior rib. Lungs and pleura: Lungs are clear. No pleural effusions or pneumothorax. Mediastinum: Mediastinal contours appear normal. Heart size is normal. Bones and chest wall: No suspicious bony lesions. Overlying soft tissues appear unremarkable. IMPRESSION: No acute cardiothoracic process. Dictated by: Cameron Dockery M.D. on 01/21/2024 at 12:39 Approved by: Cameron Dockery M.D. on 01/21/2024 at 12:43 ECG Data Attestation: I personally reviewed and interpreted this ECG as follows: Interpretation: Sinus tach rate of 102 IN 176 QRS is 72 QTC 453, no acute ST elevation depression appreciated there is some motion artifact MDM Narrative Medical decision making narrative: 63-year-old female with known hepatitis who had tips procedure for bleeding gastric varices after banding varices. Patient presents with complaint of memory loss and feeling disoriented. Patient is alert, conversant able to give a very good history but does state that she feels off and her co-worker who knows her states that she has been more forgetful. She has been forgetting things like her pin number, forgot the harness for her dog when she dropped it off at the racehorse trainer similar situations. Head CT shows no acute change Chest x-ray shows no acute EKG shows sinus tach rate of 102 IN 176 QRS is 72 QTC of 453. Labs show white count of 4.8 hemoglobin of 13.1 platelets are 104 only improved from patient's priors in October and July of 2023. Coags show an INR 1.2 PTT of 39. Electrolytes are appropriate, BUN 10 creatinine 0.57 glucose is 120 lactate 4.1 calcium is 9.7 with a Mag of 1.9 LFTs are elevated with a bilirubin of 2, AST 89 ALT is 63 alk-phos of 186 ammonia is elevated at 118 this seems consistent with patient's symptoms and patient's confusion and prior tips procedure. Total CK is 213, troponins less than 0.012 with a BNP of less than 20, lipase is 116 with a TSH of 3.26 and a prolactin of 10.6. Salicylate, acetaminophen and ETOH levels are negative UA is negative except for urobilinogen and few calcium oxalate crystals. UDS is negative. Patient's report of confusion and feeling off since her tips procedure seems consistent with hyperammonemia some mild metabolic encephalopathy. Patient does note that she did reach out to contact [facility] has not been able to actually speak with any of her providers but was encouraged to come to the Emergency Department but because of the long distance feeling improved over the weekend they deferred Patient received 500 mL NS and lactulose here in the department. 1430 patient . Spoke with coordinator 1508. Recontacted. [address] Moreno, hepatology with [facility] agrees with current plan. Discussed observation but discussed patient has got very mild changes in his actually quite conversant able to give a very good history and feels comfortable returning home she does have a that she lives with who also can keep an eye on her. She feels comfortable with this plan as well. Does recommend to continue with the lactulose follow up for recheck. Patient is to return if increasing confusion or other concerning 1637, spoke with Dr. Watson. She was familiar with the patient will follow up with her as well. Feels comfortable with the current plan. Discussed findings with patient and her . Discussed return precautions. Also asked if she would be interested in home health care if available or potential resources. She has not sure she would but she was amenable to talking with the social organization professor. Discharge Plan Departure Patient Disposition: Home Clinical Impression: Hyperammonemia Activity Restrictions/Additional Instructions: Your ammonia level was elevated today this can sometimes cause confusion, taking your lactulose daily we will help bind to this and decrease your levels and improve your mentation. Follow up at your appointment in February with the hepatology team. I would recommend following up in the next several days with your primary care provider to make sure you are feeling improved. Take take lactulose daily that was prescribed to by your surgeon until you see gastroenterology. And additional prescription is included if you need a refill before your follow-up visit. This medication does cause diarrhea. Prescription sent to [facility] in [place]. Please return for fevers, new abdominal back or flank pain, increasing confusion or altered mental status, any vomiting, black or bloody stools, lightheadedness or passing out or other new or concerning changes. Prescriptions: New lactulose 20 gram/30 mL solution 20 g PO DAILY Qty: 600 0RF lactulose 20 gram packet 20 g PO DAILY Qty: 30 0RF No Action magnesium oxide 500 mg capsule PO biotin 10,000 mcg capsule PO Probiotic 10 billion cell capsule 10,000 mmu cells PO DAILY omega 4-jud-xbz-fish oil [Fish Oil] 1,000 mg (120 mg-180 mg) capsule 1 cap PO DAILY omeprazole 40 mg capsule,delayed release(DR/EC) 40 mg PO DAILY Patient Comments: GI doctor from [facility] prescribed lisinopril 5 mg tablet 5 mg PO DAILY Qty: 90 3RF acyclovir 800 mg tablet 800 mg PO DAILY Qty: 90 1RF zolpidem 10 mg tablet 10 mg PO BEDTIME PRN (Reason: insomnia) Qty: 30 5RF metformin 1,000 mg tablet 1,000 mg PO DAILY Qty: 90 3RF Mounjaro 7.5 mg/0.5 mL pen injector 7.5 mg SUBCUT QWEEK Qty: 2 0RF hydroxyzine HCl 25 mg tablet 25 mg PO ONCE PM Qty: 30 0RF Referrals: Fatuma Watson MD [Primary Care Provider] - Stand Alone Forms: Patient Portal/API/Survey
[2024-01-21 14:32] LABS: Lactate 2HR (Lactic Acid Rflx) 3.2 mmol/L (0.7-2.1)
[2024-01-21] MEDS: ONDANSETRON 4 MG/2 ML INJ IV (17:55)
--- NOTE | 2024-01-21 18:43 | CM.SWNOTE ---
ED SALES REPRESENTATIVE DOOR TO DOOR Assessment Note: Pt is a 63yo female, resident of [place], is seen in the ED for confusion and aphasia d/t hepatic Encephalopathy. Pt lives in a house with her spouse, Giovany. Pt's Primary Care Provider is Dr. Fatuma Meadows MD and insurance is [employer]. Reviewed chart, SALES REPRESENTATIVE DOOR TO DOOR consulted to inquire about care needs at home due to pt's increased confusion. SALES REPRESENTATIVE DOOR TO DOOR entered room to meet with patient, introduced self and role. Present in the room is pt's . Pt endorses she will be taking more time off of work as she attempts to recover, get ammonia levels down and hope that her confusion subsides. Pt and do not feel caregivers or home health necessary at this time. Pt endorses that she is hopeful to follow up as soon as possible regarding her ammonia levels, she states she has had multiple PCP appts cancelled due to MD triaging needs. ED SALES REPRESENTATIVE DOOR TO DOOR discussed connecting with Transition of Care Team at her PCP office to get an ED follow up as soon as possible. Pt appreciative and will be waiting for scheduling call. SALES REPRESENTATIVE DOOR TO DOOR reviews this with ED provider, Dr. Kaye, who indicates agreement and understanding. SALES REPRESENTATIVE DOOR TO DOOR sent message to Nurse [employer] Unit Operator requesting a PCP follow up as soon as available. Plan: Pt to discharge home with spouse, follow up with PCP and Hepatology for continuity of care. WAYNE Alba
[2024-01-22 11:10] LABS: Osmolality, Serum 293 mOsmol/kg (280-301)
== END 2024-01-21 18:40 | disposition home or self-care (01) ==
PROVIDERS: Emergency Provider Emergency Medicine; Family Provider Student in an Organized Health Care Education/Training Program; PCP Student in an Organized Health Care Education/Training Program
DX: E72.20 Disorder of urea cycle metabolism, unspecified (principal); R42 Dizziness and giddiness; R07.9 Chest pain, unspecified; R00.0 Tachycardia, unspecified; R11.0 Nausea
CPT/HCPCS: 36415; 70450; 71045; 80053; 80305; 80320; 80329; 81001; 82140; 82550; 83605; 83690; 83735; 83880; 83930; 84146; 84443; 84484; 85025; 85610; 85730; 87040; 87086; 93005; 96361; 96374; 99285; G0480; J2405

== ENCOUNTER 2024-01-29 12:29 | Emergency (ER) | payer OTHER, SELFPAY ==
[2024-01-29] VITALS (13 sets, daily range): BP systolic 105–153; BP diastolic 53–75; PULSE 87–100; RESP 14–27; TEMP 36.6; O2SAT 99–100; BMI 25.7
--- NOTE | 2024-01-29 12:49 | DI.RAD.S_ITS ---
PROCEDURE: XR CHEST 1V INDICATIONS: altered mental status TECHNIQUE: One view of the chest was acquired. COMPARISON: [facility], , XR CHEST 1V, 01/21/2024, 12:16. [facility], CR, XR CHEST 1V, 10/23/2018, 3:53. FINDINGS: Surgical changes and devices: Cervical spine hardware. Cholecystectomy clips. Upper abdominal Lungs and pleura: Lungs are clear. No pleural effusions or pneumothorax. Mediastinum: Mediastinal contours appear normal. Heart size is normal. Bones and chest wall: No suspicious bony lesions. Overlying soft tissues appear unremarkable. IMPRESSION: No acute cardiopulmonary abnormality is seen. Dictated by: Trip Terry M.D. on 01/29/2024 at 13:45 Approved by: Trip Terry M.D. on 01/29/2024 at 13:46
--- NOTE | 2024-01-29 13:05 | EKG_ITS ---
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
--- NOTE | 2024-01-29 13:10 | DI.CT.S_ITS ---
PROCEDURE: CT ANGIO HEAD AND NECK INDICATIONS: dizziness, memory problems TECHNIQUE: After the administration of intravenous contrast, 1 mm thick sections acquired from the aortic arch through the [place]. 3-dimensional fyzkjbx-jrajmkljj-nbdiajthzs (MIP) and/or volume rendering reformats were acquired of the central intracranial vasculature and neck separately. For radiation dose reduction, the following was used: automated exposure control, adjustment of mA and/or kV according to patient size. COMPARISON: [facility], CT, CT HEAD/BRAIN WO CON, 01/29/2024, 13:46. FINDINGS: Image quality: There is artifact associated with the metallic hardware. Artifact from the metallic hardware is reduced by metal reconstruction algorithm. Limited by bolus timing, with venous contamination. BRAIN: CSF spaces: Ventricles are normal in size and shape. Basal cisterns are patent. No extra-axial fluid collections. Brain: No significant abnormality of the brain can be seen. Skull and face: Calvarium and facial bones appear intact, without suspicious lesions. Orbits appear normal. Sinuses: Sinuses and mastoids are clear. HEAD CT ANGIOGRAPHY: Anterior circulation: Intracranial internal carotid arteries are normal in size and flow. The flow within the paired anterior cerebral arteries is normal and symmetric. The flow within the middle cerebral arteries is normal and symmetric. The anterior communicating artery is seen. No aneurysms are seen. Posterior circulation: Visualized portions of the vertebral arteries demonstrate normal caliber, and join to form a normal appearing basilar artery. Flow within the posterior cerebral arteries is normal and symmetric. No aneurysms are seen. NECK CT ANGIOGRAPHY: Carotid system: The great vessels demonstrate a conventional anatomy as they arise from the aortic arch. The origins of the common carotid arteries appear patent. The common carotid arteries demonstrate normal caliber and courses. The bifurcation regions demonstrate no focal narrowing. The internal carotid arteries demonstrate normal calibers and courses. Posterior circulation: The origins of the vertebral arteries both appear widely patent. The more superior extracranial portions of both vertebral arteries also demonstrate normal courses and calibers. The right vertebral artery is dominant to the left. Soft tissues: Visualized neck soft tissues demonstrate no suspicious abnormalities. Moderate coronary artery calcification can be seen. Bones: No suspicious bony lesions. Visualized cervical spine appears normally aligned. Cervical spine postoperative change is seen, with anterior fixation hardware C5 through C7. There is a corpectomy with metallic strut graft seen at the C6 level. There is ossification of the posterior longitudinal ligament seen at C4-C5. IMPRESSION: No significant intracranial arterial abnormality is seen. No significant abnormality is seen within the arteries of the neck. 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 Dictated by: Jas Negro M.D. on 01/29/2024 at 13:10 Approved by: Jas Negro M.D. on 01/29/2024 at 13:13
--- NOTE | 2024-01-29 13:10 | DI.CT.S_ITS ---
PROCEDURE: CT HEAD/BRAIN WO CON INDICATIONS: dizziness TECHNIQUE: Noncontrast 4.5 mm thick angled axial sections acquired from the foramen magnum to the vertex, with coronal and sagittal reformats. For radiation dose reduction, the following was used: automated exposure control, adjustment of mA and/or kV according to patient size. COMPARISON: [facility], CT, CT ANGIO HEAD AND NECK, 01/29/2024, 13:46. [facility], CT, CT HEAD/BRAIN WO CON, 01/21/2024, 12:28. FINDINGS: Image quality: Diagnostic. CSF spaces: Basal cisterns are patent. No extra-axial fluid collections. The ventricles are symmetric in size and shape. Brain: No intracranial bleeds or masses. There is cerebral volume loss for age, with resultant ventricular and sulcal prominence. There are periventricular and deep white matter chronic small vessel ischemic changes. There is intracranial internal carotid artery atherosclerosis. Skull and face: Calvarium and visualized facial bones appear intact, without suspicious lesions. Incidental note is made of hyperostosis frontalis. This is not considered to be pathologic in a woman of this age. This Sinuses: Visualized sinuses and mastoids are clear. IMPRESSION: No imaging explanation is found for this patient's presenting symptoms. No acute intracranial pathology. If it would be helpful for clinical management decision making, please consider a dedicated, scheduled brain MRI (IAC protocol, without and with contrast) for further evaluation (assuming that there is no contraindication). Dictated by: Jas Negro M.D. on 01/29/2024 at 13:09 Approved by: Jas Negro M.D. on 01/29/2024 at 13:10
--- NOTE | 2024-01-29 13:20 | PC.NURSE ---
GCS 15 but patient reports confusion, tearful at assessment, reports no stool today with increased lactulose dose, generalized weakness but strength equal bilaterally; ambulated to restroom to provide urine sample, standby assistance, slow steady gate; upon returning to room patient did not recognize if it was her correct ER room but GCS remained 15; at bedside.
[2024-01-29 13:26] LABS: Add Manual Diff / Slide Review NO; Basophils Absolute Auto 0 /uL (0-100); Basophils Percent Auto 0.5 % (0-2); Eosinophils Absolute Auto 200 /uL (0-450); Eosinophils Percent Auto 6.5 % (2-4); Hematocrit 32.3 % (36-46); Hemoglobin 11.6 g/dL (12.0-16.0); Lymphocytes Absolute Auto 1200 /uL (1100-4500); Lymphocytes Percent Auto 37.1 % (25-40); Mean Corpuscular HGB Conc 35.8 % (30-36); Mean Corpuscular Hemoglobin 36.4 PG (26-34); Mean Corpuscular Volume 101.7 fL (80-100); Monocytes Absolute Auto 600 /uL (0-900); Monocytes Percent Auto 17.8 % (3-14); Neutrophils Absolute Auto 1300 /uL (1500-7000); Neutrophils Percent Auto 38.1 % (50-75); Platelet Count 108 X10^3/uL (150-400); Red Blood Cell Count 3.17 X10^6/uL (4.0-5.2); Red Cell Distribution Width 17.1 % (11.6-14.8); White Blood Cell Count 3.4 X10^3/uL (4.5-11.0)
[2024-01-29 13:26] LABS: Ur Creatinine Normal (Normal); Ur Specific Gravity Normal (Normal); Urine Amphetamines Negative (Negative); Urine Barbiturates Negative (Negative); Urine Benzodiazepines Negative (Negative); Urine Cocaine Negative (Negative); Urine MDMA Negative (Negative); Urine Methadone Negative (Negative); Urine Methamphetamines Negative (Negative); Urine Opiates Negative (Negative); Urine Oxycodone Negative (Negative); Urine Phencyclidine Negative (Negative); Urine THC Negative (Negative); Urine Tricyclic Antidepressant Positive (Negative); Urine pH Normal (Normal)
--- NOTE | 2024-01-29 13:34 | ED_ITS ---
HPI - General Adult General Chief complaint: Altered Mental Status Stated complaint: Memory loss, dizziness Time Seen by Provider: 01/29/24 13:10 Source: patient and family Mode of arrival: Ambulatory History of Present Illness HPI narrative: 63-year-old female with history of primary biliary cirrhosis, status post TIPS procedure [facility] in December 2023, recent visit here reported last week with confusion, elevated ammonia level, started on lactulose (or dose increased unclear per patient and family), most recently taking lactulose 20 mg 3 times daily. No frequent stooling. No black or red stooling. No fevers or chills. Still feels like she has some degree of brain fog. No history of stroke. No focal weakness of face arm or leg. No injury or trauma recent. Related Data Home Medications Medication Instructions Recorded Confirmed Lactobacillus acidophilus 10 10,000 mmu cells PO DAILY Stomach 03/20/23 12/18/23 billion cell capsule (Probiotic) biotin 10,000 mcg capsule cap PO Hair loss 03/20/23 12/18/23 magnesium oxide 500 mg capsule mg PO Leg cramps 03/20/23 12/18/23 omega 0-sxa-kco-fish oil 1,000 mg 1 cap PO DAILY Health 03/20/23 12/18/23 (120 mg-180 mg) capsule (Fish Oil) omeprazole 40 mg capsule,delayed 40 mg PO DAILY Gastric Ulcer 10/08/23 12/18/23 release Previous Rx's Medication Instructions Recorded acyclovir 800 mg tablet 800 mg PO DAILY #90 tabs 09/10/23 zolpidem 10 mg tablet 10 mg PO BEDTIME PRN insomnia #30 10/25/23 tabs metformin 1,000 mg tablet 1,000 mg PO DAILY #90 tabs 11/07/23 tirzepatide 7.5 mg/0.5 mL 7.5 mg (0.5 mL) SUBCUT QWEEK #2 mL 12/11/23 subcutaneous pen injector (Ale) hydroxyzine HCl 25 mg tablet 25 mg PO ONCE PM #30 tabs 01/14/24 lactulose 20 gram oral packet 20 g PO DAILY #30 ea 01/21/24 lactulose 20 gram/30 mL oral 20 g (30 mL) PO DAILY #600 mL 01/21/24 solution lisinopril 10 mg tablet 10 mg PO DAILY #90 tabs 01/24/24 Allergies Allergy/AdvReac Type Severity Reaction Status Date / Time acetaminophen [From TYLOX] Allergy Severe itchy,rash,trouble Verified 12/18/23 14:26 breathing trazodone Allergy Intermediate Hives Verified 12/18/23 14:26 hydromorphone [From Dilaudid] Allergy Mild itchy Verified 12/18/23 14:26 codeine [CODEINE] Allergy Unknown hives Verified 12/18/23 14:26 hydrocodone [HYDROCODONE] Allergy Unknown hives Verified 12/18/23 14:26 prochlorperazine Allergy Unknown hallucinati Verified 12/18/23 14:26 [From COMPAZINE] ons sumatriptan [From IMITREX] Allergy Unknown rash and Verified 12/18/23 14:26 swelling aspirin Allergy Verified 12/18/23 14:26 caffeine [From Cafergot] Allergy Verified 12/18/23 14:26 Penicillins Allergy Verified 12/18/23 14:26 ergotamine [ERGOTAMINE] AdvReac Unknown paralyzining Verified 12/18/23 14:26 feeling from the waste down oxycodone [From PERCOCET] AdvReac Unknown ulcers Verified 12/18/23 14:26 Blue Dye Allergy Mild Hives Uncoded 12/18/23 14:26 [id number] Allergy Unknown rash at Uncoded 12/18/23 14:26 injection site Review of Systems Review of Systems Narrative: See HPI Patient History Medical History Vitamin D deficiency Autoimmune hepatitis Osteoarthritis (~2006) Migraines Shoulder pain (~2012) Carpal tunnel syndrome (~2004) Skin rash (~2005) Chicken pox (~1963) Ovarian cyst (~2006) Herpes (~1997) Fibroids (~2006) Hypertension (~1999) Surgical History Anesthesia History of surgery (~2003) History of liver biopsy (~2001) History of release of tendon (~1989) Status post tubal ligation (~2006) Status post laparoscopic cholecystectomy (~1986) History of tonsillectomy (~1963) Family History Brother Age: 68 Hypertension Hyperlipidemia Father Hypertension Hyperlipidemia Brother Cancer Brother Cancer Mother No problems noted. Social History Smoking Status: Never smoker eating out: rarely or never Type(s) of exercise: walking Smoking Status: Never smoker alcohol intake frequency: holidays/special occasions only Substance Use Type: does not use Exam Narrative Exam Narrative: GENERAL: Well-developed patient, in mild distress. HEAD: Atraumatic. Normocephalic. EYES: Pupils equal round and reactive. Extraocular motions intact. No scleral icterus. No injection or drainage. ENT: Nose without bleeding, purulent drainage. Throat without erythema, tonsillar hypertrophy or exudate. Airway patent. NECK: Trachea midline. Non tender CARDIOVASCULAR: Regular rate and rhythm without murmurs, gallops, or rubs. RESPIRATORY: Clear to auscultation. Breath sounds equal bilaterally. No wheezes, rales, or rhonchi. GASTROINTESTINAL: Abdomen soft, non-tender, nondistended. EXTREMITIES: No edema or joint tenderness. BACK: Nontender without deformity or crepitance. No flank tenderness. NEURO: AOx3. Motor functions grossly nonfocal SKIN: No rash or erythema of visible areas Initial Vital Signs Initial Vital Signs: Vital Signs Temperature 97.8 F 01/29/24 12:35 Pulse Rate 98 H 01/29/24 12:35 Respiratory Rate 16 01/29/24 12:35 Blood Pressure 153/75 H 01/29/24 12:35 Pulse Oximetry 100 01/29/24 12:35 Oxygen Delivery Method Room Air 01/29/24 12:35 Course Orders Ordered: ED Orders 01/29/24 12:49 XR chest 1V Stat EKG-12 Lead Stat 01/29/24 13:10 CT angio head and neck Stat CT head/brain wo con Stat 01/29/24 13:15 Ammonia (NH3) Stat Complete Blood Count AUTO DIFF Stat Comprehensive Metabolic Panel Stat 01/29/24 13:20 Urine Drug Screen, Rapid Stat Urine Microscopic Stat Discontinued Medications Lactulose (Lactulose 20 Gm/30 Ml Solution) 20 gm PO NOW ONE Stop: 01/29/24 14:26 Last Admin: 01/29/24 15:53 Dose: 20 gm Documented By: AB Potassium Chloride (Potassium Chloride 20 Meq/15 Ml Udc) 40 meq PO NOW ONE Stop: 01/29/24 14:39 Last Admin: 01/29/24 15:53 Dose: 40 meq Documented By: Rifampin (Rifampin 300 Mg Capsule) 600 mg PO DAILY [facility] Rifaximin (Rifaximin 200 Mg Tablet) 550 mg PO BID MARILEE Stop: 01/30/24 07:00 Last Admin: 01/29/24 15:49 Dose: 550 mg Documented By: Vital Signs Vital signs: Vital Signs - 8 hr 01/29/24 12:35 01/29/24 13:23 01/29/24 13:24 Temperature 97.8 F Pulse Rate 98 H 100 H Respiratory Rate 16 Blood Pressure 153/75 H 117/59 L Pulse Oximetry 100 100 Oxygen Delivery Method Room Air Room Air 01/29/24 13:24 01/29/24 13:30 01/29/24 13:30 Temperature Pulse Rate 97 H 92 H Respiratory Rate 19 Blood Pressure 115/59 L Pulse Oximetry 99 100 Oxygen Delivery Method 01/29/24 13:55 01/29/24 13:55 01/29/24 14:00 Temperature Pulse Rate 93 H 91 H Respiratory Rate 22 14 Blood Pressure 143/65 H Pulse Oximetry 100 100 Oxygen Delivery Method 01/29/24 14:01 01/29/24 14:01 01/29/24 14:30 Temperature Pulse Rate 90 87 Respiratory Rate 16 17 Blood Pressure 115/59 L Pulse Oximetry 100 99 Oxygen Delivery Method 01/29/24 14:30 01/29/24 15:00 01/29/24 15:00 Temperature Pulse Rate 90 Respiratory Rate 19 Blood Pressure 105/59 L 120/64 Pulse Oximetry 99 Oxygen Delivery Method 01/29/24 15:30 01/29/24 15:30 01/29/24 16:00 Temperature Pulse Rate 90 Respiratory Rate 27 H Blood Pressure 121/62 113/67 Pulse Oximetry 100 Oxygen Delivery Method 01/29/24 16:00 01/29/24 16:30 01/29/24 16:31 Temperature Pulse Rate 92 H 92 H 94 H Respiratory Rate 19 23 22 Blood Pressure Pulse Oximetry 100 100 100 Oxygen Delivery Method Room Air Room Air 01/29/24 16:31 Temperature Pulse Rate Respiratory Rate Blood Pressure 118/53 L Pulse Oximetry Oxygen Delivery Method Medical Decision Making Lab Data Lab results reviewed: Yes I reviewed the patient's lab results. Lab results narrative: White blood cell count 3400, hemoglobin 11.6, platelets 178361. Potassium 3.3 low, BUN 9 with creatinine 0.51. Glucose 133. Sodium 137. Serum CO2 24. Total bilirubin 1.9, AST 81, ALT 69, alkaline phosphatase 173. Urinalysis not obviously infected, uric acid like crystals noted incidentally. UDS positive for tricyclic antidepressant. Ammonia level 113. 01/29/24 13:15 01/29/24 13:15 Labs: Lab Results 01/29/24 01/29/24 Range/Units 13:15 13:20 WBC 3.4 L (4.5-11.0) X10^3/uL RBC 3.17 L (4.0-5.2) X10^6/uL Hgb 11.6 L (12.0-16.0) g/dL Hct 32.3 L (36-46) % MCV 101.7 H (80-100) fL MCH 36.4 H (26-34) PG MCHC 35.8 (30-36) % RDW 17.1 H (11.6-14.8) % Plt Count 108 L (150-400) X10^3/uL Neut % (Auto) 38.1 L (50-75) % Lymph % (Auto) 37.1 (25-40) % [place] % (Auto) 17.8 H (3-14) % Eos % (Auto) 6.5 H (2-4) % Baso % (Auto) 0.5 (0-2) % Neut # (Auto) 1300 L (5549-6765) /uL Lymph # (Auto) 1200 (5248-5774) /uL [place] # (Auto) 600 (0-900) /uL Eos # (Auto) 200 (0-450) /uL Baso # (Auto) 0 (0-100) /uL Sodium 137 (137-145) mmol/L Potassium 3.3 L (3.4-5.1) mmol/L Chloride 106 (98-107) mmol/L Carbon Dioxide 24 (22-32) mmol/L BUN 9 (7-17) mg/dL Creatinine 0.51 L (0.52-1.04) mg/dL Estimated GFR > 60 (>60) mL/min BUN/Creatinine Ratio 17.6 (6-22) Glucose 133 H (80-110) mg/dL Calcium 9.2 (8.4-10.2) mg/dL Total Bilirubin 1.9 H (0.2-1.3) mg/dL AST 81 H (14-36) IU/L ALT 69 H (<35) IU/L Alkaline Phosphatase 173 H (38-126) U/L Ammonia 113 H (9-30) umol/L Total Protein 7.6 (6.3-8.2) g/dL Albumin 3.6 (3.5-5.0) g/dL Globulin 4.0 (1.7-4.1) g/dL Albumin/Globulin Ratio 0.9 L (1.0-2.8) Urine RBC None seen (0-5/HPF) Urine WBC 0-1/hpf (0-5/HPF) Ur Squamous Epith Cells 1-5 /hpf (0-5/HPF) Ur Transition Epith Cell 1-5/hpf (0-5/HPF) Ur Renal Epithelial Cell 0-1/hpf (0-1/HPF) Calcium Oxalate Crystal Moderate H Amorphous Sediment 2+ Urine Bacteria Few (2-10) H (None) Ur Culture Indicated? Cult not indicated Vol Urine Centrifuged 10ml (spun) U Opiates 300ng/mL cut Negative (Negative) Ur Oxycodone Screen Negative (Negative) Urine Methadone Screen Negative (Negative) Ur Barbiturates Screen Negative (Negative) U Tricyclic Antidepress Positive H (Negative) Ur Phencyclidine Scrn Negative (Negative) Ur Amphetamines Screen Negative (Negative) U Methamphetamines Scrn Negative (Negative) Ur MDMA Scrn (Ecstasy) Negative (Negative) U Benzodiazepines Scrn Negative (Negative) Urine Cocaine Screen Negative (Negative) U Marijuana (THC) Screen Negative (Negative) Urine pH Normal (Normal) Urine Specific [place] Normal (Normal) Ur Creatinine Normal (Normal) Point of Care Testing Glucose POC 133 Urine Dip Bedside Urine Glucose Negative Bedside Urine Bilirubin - Negative Bedside Urine Ketone - Negative Urine Specific [place] 1.015 Bedside Urine Occult Blood - Negative Bedside Urine pH 6.0 Bedside Urine Protein - Negative Bedside Urine Urobilinogen +/- 1mg Bedside Urine Nitrite - Negative Bedside Urine Leukocytes +/- 15 Esterase Point of care testing: Point of Care Testing Glucose POC 133 Urine Dip Bedside Urine Glucose Negative Bedside Urine Bilirubin - Negative Bedside Urine Ketone - Negative Urine Specific [place] 1.015 Bedside Urine Occult Blood - Negative Bedside Urine pH 6.0 Bedside Urine Protein - Negative Bedside Urine Urobilinogen +/- 1mg Bedside Urine Nitrite - Negative Bedside Urine Leukocytes +/- 15 Esterase Imaging Data Chest x-ray: Radiologist's Impression: [address] [address] XRay Report Signed Patient: Nadeen Talbot MR#: [id number] : 1960 Acct:[id number] Age/Sex: 63 / F Date of Service: 01/29/24 Loc: ED Accession Number: [id number] Procedure: XR chest 1V Ordering Provider: Luis Marte MD PROCEDURE: XR CHEST 1V INDICATIONS: altered mental status TECHNIQUE: One view of the chest was acquired. COMPARISON: [facility], CR, XR CHEST 1V, 01/21/2024, 12:16. [facility], CR, XR CHEST 1V, 10/23/2018, 3:53. FINDINGS: Surgical changes and devices: Cervical spine hardware. Cholecystectomy clips. Upper abdominal Lungs and pleura: Lungs are clear. No pleural effusions or pneumothorax. Mediastinum: Mediastinal contours appear normal. Heart size is normal. Bones and chest wall: No suspicious bony lesions. Overlying soft tissues appear unremarkable. IMPRESSION: No acute cardiopulmonary abnormality is seen. Dictated by: Trip Terry M.D. on 01/29/2024 at 13:45 Approved by: Trip Terry M.D. on 01/29/2024 at 13:46 CT scan - head: Radiologist's Impression: [address] [address] XRay Report Signed Patient: Nadeen Talbot MR#: [id number] : 1960 Acct:[id number] Age/Sex: 63 / F Date of Service: 01/29/24 Loc: ED Accession Number: [id number] Procedure: XR chest 1V Ordering Provider: Luis Marte MD PROCEDURE: XR CHEST 1V INDICATIONS: altered mental status TECHNIQUE: One view of the chest was acquired. COMPARISON: [facility], CR, XR CHEST 1V, 01/21/2024, 12:16. [facility], CR, XR CHEST 1V, 10/23/2018, 3:53. FINDINGS: Surgical changes and devices: Cervical spine hardware. Cholecystectomy clips. Upper abdominal Lungs and pleura: Lungs are clear. No pleural effusions or pneumothorax. Mediastinum: Mediastinal contours appear normal. Heart size is normal. Bones and chest wall: No suspicious bony lesions. Overlying soft tissues appear unremarkable. IMPRESSION: No acute cardiopulmonary abnormality is seen. Dictated by: Trip Terry M.D. on 01/29/2024 at 13:45 Approved by: Trip Terry M.D. on 01/29/2024 at 13:46 [facility] Narrative Medical decision making narrative: 63-year-old female with history of cirrhosis, status post tips procedure December 2023, feels like she has brain fog ongoing, seen last week, elevated ammonia level, started on on lactulose versus increased dose, taking lactulose 20 g 3 times daily, not stooling, feels like she has not getting any better. Afebrile, sirs screen negative. Labs pending. Initial concern on triage for possible stroke, CT/CTA imaging ordered. CT head noncontrast study, no acute changes. See radiology report. CT angiogram head and neck vessels, no acute changes, no thrombosis or narrowing. See radiology report. Labs show potassium low 3.3, oral repletion ordered. Ammonia level 113, similar range to last week when 18 value. We will give additional dose lactulose 20 g orally for now. states that they are taking lactulose 20g 4 times daily, and that there GI doc has ordered an antibiotic that was approved today, and available for pickup at [facility] tomorrow morning. We will query their pharmacy to see if we carry that particular antibiotic, in order to try to give 1st dose now, for treatment of refractory hepatic encephalopathy. Oral dose Rifampin given. Patient quite lucid despite elevated ammonia levels, similar range today. Further treatment as an outpatient, continue taking antibiotic prescribed by their GI specialist. Continue lactulose dosing at 20 g 4 times daily. Follow up with GI as planned. Return precautions discussed. Home with family Discharge Plan Departure Patient Disposition: Home Clinical Impression: Hepatic encephalopathy, Confusion, History of cirrhosis Activity Restrictions/Additional Instructions: History of primary biliary cirrhosis, status post TIPS procedure December 2023 [facility], followed by Gastroenterology specialty services, taking maximal doses lactulose 20 g four times daily, still feeling that there some degree of brain fog. CT head and CT angiogram head and neck vessels today was unremarkable. Serum studies were sent, low potassium 3.3 noted, oral dose given. Ammonia level 113 elevated, similar to recent 118 level prior visit. You are amazingly lucid for such a high ammonia level, but this no doubt accounts for your feeling like you have some degree of brain fog. You mentioned that you are supposed to be taking an antibiotic prescribed by your java project manager to assist with encephalopathy treatment, that the oral antibiotic was recently approved, available tomorrow at your pharmacy tomorrow morning. Start taking that antibiotic as directed. Keep taking your lactulose as directed. Follow up with your java project manager as planned. Return earlier to this/nearest emergency department for any change worsening symptoms or any concerns prior Prescriptions: No Action magnesium oxide 500 mg capsule PO biotin 10,000 mcg capsule PO Probiotic 10 billion cell capsule 10,000 mmu cells PO DAILY omega 9-ook-ynj-fish oil [Fish Oil] 1,000 mg (120 mg-180 mg) capsule 1 cap PO DAILY omeprazole 40 mg capsule,delayed release(DR/EC) 40 mg PO DAILY Patient Comments: GI doctor from [facility] prescribed acyclovir 800 mg tablet 800 mg PO DAILY Qty: 90 1RF zolpidem 10 mg tablet 10 mg PO BEDTIME PRN (Reason: insomnia) Qty: 30 5RF metformin 1,000 mg tablet 1,000 mg PO DAILY Qty: 90 3RF Mounjaro 7.5 mg/0.5 mL pen injector 7.5 mg SUBCUT QWEEK Qty: 2 0RF hydroxyzine HCl 25 mg tablet 25 mg PO ONCE PM Qty: 30 0RF lisinopril 10 mg tablet 10 mg PO DAILY Qty: 90 3RF lactulose 20 gram/30 mL solution 20 g PO DAILY Qty: 600 0RF lactulose 20 gram packet 20 g PO DAILY Qty: 30 0RF Referrals: Fatuma Meadows MD [Primary Care Provider] - Stand Alone Forms: Patient Portal/API/Survey
[2024-01-29 13:37] LABS: Ammonia (NH3) 113 umol/L (9-30)
[2024-01-29 13:38] LABS: Alanine Aminotransferase 69 IU/L (<35); Albumin 3.6 g/dL (3.5-5.0); Albumin Globulin Ratio 0.9 (1.0-2.8); Alkaline Phosphatase 173 U/L (38-126); Aspartate Aminotransferase 81 IU/L (14-36); BUN Creatinine Ratio 17.6 (6-22); Bilirubin Total 1.9 mg/dL (0.2-1.3); Blood Urea Nitrogen 9 mg/dL (7-17); Calcium 9.2 mg/dL (8.4-10.2); Carbon Dioxide 24 mmol/L (22-32); Chloride 106 mmol/L (98-107); Estimated Glomerular Filt Rate > 60 mL/min (>60); Glucose 133 mg/dL (80-110); HEMOLYSIS < 15 (0-50); Potassium 3.3 mmol/L (3.4-5.1); Sodium 137 mmol/L (137-145); Total Protein 7.6 g/dL (6.3-8.2)
[2024-01-29 13:54] LABS: Urine Volume 10mL (spun)
[2024-01-29 13:55] LABS: Amorphous Sediment Urine 2+; Bacteria Urine Few (2-10); Calcium Oxalate Crystals Urine Moderate; Culture Indicated Urine Cult Not Indicated; RBC Urine None Seen (0-5/HPF); Renal Epithelial Cells Urine 0-1/HPF (0-1/HPF); Squamous Epithelial Cell Urine 1-5 /HPF (0-5/HPF); Transitional Epi Cells Urine 1-5/HPF (0-5/HPF); WBC Urine 0-1/HPF (0-5/HPF)
[2024-01-29] MEDS: RIFAXIMIN 200 MG TABLET 550 MG PO (15:49)
[2024-01-29] MEDS: LACTULOSE 20 GM/30 ML SOLUTION PO (15:53)
[2024-01-29] MEDS: POTASSIUM CHLORIDE 20 MEQ/15 ML UDC 40 MEQ PO (15:53)
== END 2024-01-29 16:52 | disposition home or self-care (01) ==
PROVIDERS: Emergency Provider Emergency Medicine; Family Provider Student in an Organized Health Care Education/Training Program; PCP Student in an Organized Health Care Education/Training Program
DX: K76.82 Hepatic encephalopathy (principal); R41.0 Disorientation, unspecified; R79.89 Other specified abnormal findings of blood chemistry; Z87.19 Personal history of other diseases of the digestive system
CPT/HCPCS: 36415; 70450; 70496; 70498; 71045; 80053; 80305; 81003; 81015; 82140; 82962; 85025; 93005; 99284; Q9967

== ENCOUNTER 2024-02-11 19:24 | Emergency (ER) | payer OTHER, SELFPAY ==
[2024-02-11 19:55] VITALS: BP 117/77; PULSE 115; RESP 20; TEMP 36.9; O2SAT 100; BMI 26.6
--- NOTE | 2024-02-11 20:41 | DI.RAD.S_ITS ---
PROCEDURE: XR ACUTE ABDOMEN SERIES INDICATIONS: constipation TECHNIQUE: One view chest and two views of the abdomen were acquired. COMPARISON: None. FINDINGS: Surgical changes and devices: Postsurgical changes are noted in epigastric region. Postsurgical changes are also seen in lower cervical spine. Chest: Lungs are clear. Heart size is normal. No pleural effusions. No pneumoperitoneum. Abdomen: Bowel gas pattern is nonobstructive. Significant fecal stasis in the colon is seen. Significant fecal matter distension of sigmoid colon and rectum is also noted. No suspicious calcifications. Visualized solid organ contours appear normal. Bones: No suspicious bony lesions. IMPRESSION: Moderate constipation and fecal impaction. No gross free air. No acute cardiopulmonary pathology. Dictated by: Alli Dillard M.D. on 02/11/2024 at 21:22 Approved by: Alli Dillard M.D. on 02/11/2024 at 21:23
[2024-02-11 23:06] VITALS: BP 113/64; PULSE 114; RESP 19; TEMP 37.1; O2SAT 99
--- NOTE | 2024-02-12 02:19 | ED.ABDPAIN ---
HPI - Abdominal Pain General Chief Complaint: Abdominal Pain Stated Complaint: Severe Constipation Time Seen by Provider: 02/12/24 01:35 Source: patient Mode of arrival: Ambulatory History of Present Illness HPI narrative: 63-year-old female with history of nonalcoholic liver disease with cirrhosis, prior TIPS procedure, awaiting another form of shunt procedure at [facility] later this morning by Interventional Radiology with GI consulting, having increased abdominal discomfort. No fevers or chills. Concerned she might have constipation. She has been having small amounts of stool. No black or red stool. No recent antibiotics. She has been taking lactulose medications, denies missed doses. Related Data Home Medications Medication Instructions Recorded Confirmed Lactobacillus acidophilus 10 10,000 mmu cells PO DAILY Stomach 03/20/23 12/18/23 billion cell capsule (Probiotic) biotin 10,000 mcg capsule cap PO Hair loss 03/20/23 12/18/23 magnesium oxide 500 mg capsule mg PO Leg cramps 03/20/23 12/18/23 omega 2-vzx-vww-fish oil 1,000 mg 1 cap PO DAILY Health 03/20/23 12/18/23 (120 mg-180 mg) capsule (Fish Oil) omeprazole 40 mg capsule,delayed 40 mg PO DAILY Gastric Ulcer 10/08/23 12/18/23 release Previous Rx's Medication Instructions Recorded acyclovir 800 mg tablet 800 mg PO DAILY #90 tabs 09/10/23 zolpidem 10 mg tablet 10 mg PO BEDTIME PRN insomnia #30 10/25/23 tabs metformin 1,000 mg tablet 1,000 mg PO DAILY #90 tabs 11/07/23 tirzepatide 7.5 mg/0.5 mL 7.5 mg (0.5 mL) SUBCUT QWEEK #2 mL 12/11/23 subcutaneous pen injector (Ale) hydroxyzine HCl 25 mg tablet 25 mg PO ONCE PM #30 tabs 01/14/24 lactulose 20 gram oral packet 20 g PO DAILY #30 ea 01/21/24 lactulose 20 gram/30 mL oral 20 g (30 mL) PO DAILY #600 mL 01/21/24 solution lisinopril 10 mg tablet 10 mg PO DAILY #90 tabs 01/24/24 lactulose 20 gram oral packet 20 g PO BID #30 ea 02/12/24 Allergies Allergy/AdvReac Type Severity Reaction Status Date / Time acetaminophen [From TYLOX] Allergy Severe itchy,rash,trouble Verified 12/18/23 14:26 breathing trazodone Allergy Intermediate Hives Verified 12/18/23 14:26 hydromorphone [From Dilaudid] Allergy Mild itchy Verified 12/18/23 14:26 codeine [CODEINE] Allergy Unknown hives Verified 12/18/23 14:26 hydrocodone [HYDROCODONE] Allergy Unknown hives Verified 12/18/23 14:26 prochlorperazine Allergy Unknown hallucinati Verified 12/18/23 14:26 [From COMPAZINE] ons sumatriptan [From IMITREX] Allergy Unknown rash and Verified 12/18/23 14:26 swelling aspirin Allergy Verified 12/18/23 14:26 caffeine [From Cafergot] Allergy Verified 12/18/23 14:26 Penicillins Allergy Verified 12/18/23 14:26 ergotamine [ERGOTAMINE] AdvReac Unknown paralyzining Verified 12/18/23 14:26 feeling from the waste down oxycodone [From PERCOCET] AdvReac Unknown ulcers Verified 12/18/23 14:26 Blue Dye Allergy Mild Hives Uncoded 12/18/23 14:26 [id number] Allergy Unknown rash at Uncoded 12/18/23 14:26 injection site Review of Systems Review of Systems Narrative: see HPI Patient History Medical History Vitamin D deficiency Autoimmune hepatitis Osteoarthritis (~2006) Migraines Shoulder pain (~2012) Carpal tunnel syndrome (~2004) Skin rash (~2005) Chicken pox (~1963) Ovarian cyst (~2006) Herpes (~1997) Fibroids (~2006) Hypertension (~1999) Surgical History Anesthesia History of surgery (~2003) History of liver biopsy (~2001) History of release of tendon (~1989) Status post tubal ligation (~2006) Status post laparoscopic cholecystectomy (~1986) History of tonsillectomy (~1963) Family History Brother Age: 68 Hypertension Hyperlipidemia Father Hypertension Hyperlipidemia Brother Cancer Brother Cancer Mother No problems noted. Social History Smoking Status: Never smoker eating out: rarely or never Type(s) of exercise: walking Smoking Status: Never smoker alcohol intake frequency: holidays/special occasions only Exam Narrative Exam Narrative: GENERAL: Well-developed patient, in mild distress. HEAD: Atraumatic. Normocephalic. EYES: Pupils equal round and reactive. Extraocular motions intact. No scleral icterus. No injection or drainage. ENT: Nose without bleeding, purulent drainage. Throat without erythema, tonsillar hypertrophy or exudate. Airway patent. NECK: Trachea midline. Non tender CARDIOVASCULAR: Regular rate and rhythm without murmurs, gallops, or rubs. RESPIRATORY: Clear to auscultation. Breath sounds equal bilaterally. No wheezes, rales, or rhonchi. GASTROINTESTINAL: Abdomen soft, obese, no significant distention, no tense abdomen, shifting fluid not obvious, no obvious venral hernias, no obvious abnormal masses EXTREMITIES: No edema or joint tenderness. BACK: Nontender without deformity or crepitance. No flank tenderness. NEURO: AOx3. Motor functions grossly nonfocal SKIN: No rash or erythema of visible areas Initial Vital Signs Initial Vital Signs: Vital Signs Temperature 98.5 F 02/11/24 19:55 Pulse Rate 115 H 02/11/24 19:55 Respiratory Rate 20 02/11/24 19:55 Blood Pressure 117/77 02/11/24 19:55 Pulse Oximetry 100 02/11/24 19:55 Oxygen Delivery Method Room Air 02/11/24 19:55 Course Orders Ordered: ED Orders 02/11/24 20:41 XR acute abdomen series Stat 02/12/24 02:05 Complete Blood Count AUTO DIFF Stat Comprehensive Metabolic Panel Stat Lipase Stat 02/12/24 02:40 CT abdomen pelvis w con Stat Vital Signs Vital signs: Vital Signs - 8 hr 02/11/24 23:06 Temperature 98.7 F Pulse Rate 114 H Respiratory Rate 19 Blood Pressure 113/64 Pulse Oximetry 99 Oxygen Delivery Method Room Air MDM - Abdominal Pain Lab Data Attestation: I reviewed the patient's lab results. Lab results narrative: White blood cell count 4600, hemoglobin 9 point, platelets [id number]. Basic metabolic panel unremarkable, renal function normal. Glucose 144 noted. Total bilirubin 2.5, AST 63, ALT 50, alkaline phosphatase 157. Lipase normal. 02/12/24 02:05 02/12/24 02:05 Labs: Lab Results 02/12/24 Range/Units 02:05 WBC 4.6 (4.5-11.0) X10^3/uL RBC 2.62 L (4.0-5.2) X10^6/uL Hgb 9.9 L (12.0-16.0) g/dL Hct 27.0 L (36-46) % MCV 103.2 H (80-100) fL MCH 37.6 H (26-34) PG MCHC 36.5 H (30-36) % RDW 18.1 H (11.6-14.8) % Plt Count 100 L (150-400) X10^3/uL Neut % (Auto) 72.3 (50-75) % Lymph % (Auto) 14.8 L (25-40) % Perkins % (Auto) 11.4 (3-14) % Eos % (Auto) 1.2 L (2-4) % Baso % (Auto) 0.3 (0-2) % Neut # (Auto) 3300 (5303-9533) /uL Lymph # (Auto) 700 L (4714-2748) /uL Perkins # (Auto) 500 (0-900) /uL Eos # (Auto) 100 (0-450) /uL Baso # (Auto) 0 (0-100) /uL Sodium 134 L (137-145) mmol/L Potassium 3.7 (3.4-5.1) mmol/L Chloride 108 H (98-107) mmol/L Carbon Dioxide 20 L (22-32) mmol/L BUN 10 (7-17) mg/dL Creatinine 0.54 (0.52-1.04) mg/dL Estimated GFR > 60 (>60) mL/min BUN/Creatinine Ratio 18.5 (6-22) Glucose 144 H (80-110) mg/dL Calcium 8.5 (8.4-10.2) mg/dL Total Bilirubin 2.5 H (0.2-1.3) mg/dL AST 63 H (14-36) IU/L ALT 50 H (<35) IU/L Alkaline Phosphatase 157 H (38-126) U/L Total Protein 6.8 (6.3-8.2) g/dL Albumin 3.0 L (3.5-5.0) g/dL Globulin 3.8 (1.7-4.1) g/dL Albumin/Globulin Ratio 0.8 L (1.0-2.8) Lipase 50 (23-300) U/L MDM Narrative Medical decision making narrative: 63-year-old female with a history of nonalcoholic cirrhosis, prior TIPS procedure, awaiting another form of shunt procedure later today at [facility], with abdominal pain. Afebrile, sirs screen negative. Mild diffuse tenderness, without obvious fluid wave. T bili slight elevation noted, hemoglobin 9.9, platelets adequate, lipase normal. Screening x-ray from triage suspicious for moderate colonic load, no obstructive pattern. Renal function adequate, CT abdomen and pelvis with IV contrast ordered. CT abdomen and pelvis with IV contrast. Impressions: ?No evidence of colitis diverticulitis bowel obstruction or obstructive uropathy. Appendix not seen. Large volume of stool within the colon compatible with constipation. Sequelae of cirrhosis. Incidental findings as detailed.. See radiology report Considered enema, declined for now, home with , refill Lactulose (powder formulation to reconstitute preferred), will drive patient to [facility] for shunt procedure, still keep patient NPO for now. DC home with . Discharge Plan Departure Patient Disposition: Home Clinical Impression: Abdominal pain, History of cirrhosis, Constipation Instructions: DI for Abdominal Pain-Adult, DI for Constipation Activity Restrictions/Additional Instructions: Abdominal discomfort, concern for constipation. Screening x-ray suspicious for constipation changes with colonic stool, no obstruction pattern. You were awaiting procedure [facility] later today for possible shunting, history of remote tips procedure noted, history of nonalcoholic cirrhosis noted. CT abdomen and pelvis done today, no acute inflammatory conditions identified, no bowel obstruction, constipation colonic stool again seen. Trial of lactulose, refill sent to your pharmacy. Follow up with [facility] in [place] as planned later today for scheduled shunting procedure Prescriptions: New lactulose 20 gram packet 20 g PO BID Qty: 30 0RF No Action magnesium oxide 500 mg capsule PO biotin 10,000 mcg capsule PO Probiotic 10 billion cell capsule 10,000 mmu cells PO DAILY omega 3-kmk-iyh-fish oil [Fish Oil] 1,000 mg (120 mg-180 mg) capsule 1 cap PO DAILY omeprazole 40 mg capsule,delayed release(DR/EC) 40 mg PO DAILY Patient Comments: GI doctor from [facility] prescribed acyclovir 800 mg tablet 800 mg PO DAILY Qty: 90 1RF zolpidem 10 mg tablet 10 mg PO BEDTIME PRN (Reason: insomnia) Qty: 30 5RF metformin 1,000 mg tablet 1,000 mg PO DAILY Qty: 90 3RF Mounjaro 7.5 mg/0.5 mL pen injector 7.5 mg SUBCUT QWEEK Qty: 2 0RF hydroxyzine HCl 25 mg tablet 25 mg PO ONCE PM Qty: 30 0RF lisinopril 10 mg tablet 10 mg PO DAILY Qty: 90 3RF lactulose 20 gram/30 mL solution 20 g PO DAILY Qty: 600 0RF lactulose 20 gram packet 20 g PO DAILY Qty: 30 0RF Referrals: Fatuma Meadows MD [Primary Care Provider] - Stand Alone Forms: Patient Portal/API/Survey
[2024-02-12 02:27] LABS: Add Manual Diff / Slide Review NO; Basophils Absolute Auto 0 /uL (0-100); Basophils Percent Auto 0.3 % (0-2); Eosinophils Absolute Auto 100 /uL (0-450); Eosinophils Percent Auto 1.2 % (2-4); Hemoglobin 9.9 g/dL (12.0-16.0); Lymphocytes Absolute Auto 700 /uL (1100-4500); Lymphocytes Percent Auto 14.8 % (25-40); Mean Corpuscular HGB Conc 36.5 % (30-36); Mean Corpuscular Hemoglobin 37.6 PG (26-34); Mean Corpuscular Volume 103.2 fL (80-100); Monocytes Absolute Auto 500 /uL (0-900); Monocytes Percent Auto 11.4 % (3-14); Neutrophils Absolute Auto 3300 /uL (1500-7000); Neutrophils Percent Auto 72.3 % (50-75); Platelet Count 100 X10^3/uL (150-400); Red Blood Cell Count 2.62 X10^6/uL (4.0-5.2); Red Cell Distribution Width 18.1 % (11.6-14.8); White Blood Cell Count 4.6 X10^3/uL (4.5-11.0)
[2024-02-12 02:33] LABS: Alanine Aminotransferase 50 IU/L (<35); Albumin Globulin Ratio 0.8 (1.0-2.8); Alkaline Phosphatase 157 U/L (38-126); Aspartate Aminotransferase 63 IU/L (14-36); BUN Creatinine Ratio 18.5 (6-22); Bilirubin Total 2.5 mg/dL (0.2-1.3); Blood Urea Nitrogen 10 mg/dL (7-17); Calcium 8.5 mg/dL (8.4-10.2); Carbon Dioxide 20 mmol/L (22-32); Chloride 108 mmol/L (98-107); Estimated Glomerular Filt Rate > 60 mL/min (>60); Globulin 3.8 g/dL (1.7-4.1); Glucose 144 mg/dL (80-110); HEMOLYSIS < 15 (0-50); Lipase 50 U/L (23-300); Potassium 3.7 mmol/L (3.4-5.1); Sodium 134 mmol/L (137-145); Total Protein 6.8 g/dL (6.3-8.2)
--- NOTE | 2024-02-12 02:40 | DI.CT.S_ITS ---
PROCEDURE: CT ABDOMEN PELVIS W CON INDICATIONS: abd pain, hx nonEtoh cirrhosis, prior TIPS TECHNIQUE: After the administration of intravenous contrast, axial sections acquired from the lung bases to the pubic symphysis. Coronal and sagittal reformats were performed. For radiation dose reduction, the following was used: automated exposure control, adjustment of mA and/or kV according to patient size. COMPARISON: [facility], CT, CT ABDOMEN PELVIS W CON, 11/21/2019, 18:54. FINDINGS: Image quality: Diagnostic. Lower Chest: Moderate coronary artery calcification. Clear lung bases. Small distal esophageal varices. ABDOMEN: Liver: Cirrhotic liver morphology with TIPS shunt present. Gallbladder: Surgically absent. Biliary ducts: Appropriate biliary tree caliber post cholecystectomy. Pancreas: Normal size and morphology without visible ductal dilatation or inflammation. Spleen: Size is within normal limits. Adrenal Glands: No adrenal nodules. Kidneys and Ureters: Symmetric enhancement. No nephrolithiasis or hydronephrosis. No hydroureter. Stomach and Bowel: Numerous vascular coils are present in the proximal stomach causing beam hardening artifact throughout the upper abdomen. Stomach is decompressed. Small bowel is normal. There is a large quantity of semi solid to solid stool throughout the colon and rectum. Mild inflammation in the perirectal fat. Peritoneum: No abnormal intraperitoneal fluid. No free air. Ventral Wall: No significant ventral hernia. Abdominal Nodes: No retroperitoneal or mesenteric adenopathy by size criteria. Vessels: The abdominal aorta, IVC, and portal vein are of normal caliber. The portal vein is dilated measuring 1.8 cm in diameter. PELVIS: Pelvic Organs: The uterus is present. Ovaries are not well seen. Bladder: Markedly distended urinary bladder with a thin wall. Pelvic Nodes: No enlarged lymph nodes. Miscellaneous: No inguinal hernias are seen. Bones: No aggressive osseous abnormality. Moderate degenerative change in both hip joints. Mild levoscoliosis. IMPRESSION: Rectal obstipation may be contributing to urinary retention. There is mild perirectal inflammation. Hepatic cirrhosis with TIPS shunt present. Prior coil embolization in the proximal stomach. Final interpretation is concordant with preliminary report. Dictated by: Megan Rivera M.D. on 02/12/2024 at 8:45 Approved by: Megan Rivera M.D. on 02/12/2024 at 8:55
--- NOTE | 2024-02-12 04:00 | PC.NURSE ---
pt up to the bathroom x 2 with small bm noted
[2024-02-12 04:32] VITALS: BP 106/51; PULSE 85; RESP 16; O2SAT 98
== END 2024-02-12 04:42 | disposition home or self-care (01) ==
PROVIDERS: Emergency Provider Emergency Medicine; Family Provider Student in an Organized Health Care Education/Training Program; PCP Student in an Organized Health Care Education/Training Program
DX: R10.9 Unspecified abdominal pain (principal); K59.00 Constipation, unspecified; Z87.19 Personal history of other diseases of the digestive system
CPT/HCPCS: 74022; 74177; 80053; 83690; 85025; 99281; 99284; Q9967

== ENCOUNTER → 2024-07-08 12:53 | Outpatient (CLI) | payer OTHER, SELFPAY ==
[2024-07-08 13:08] LABS: Add Manual Diff / Slide Review NO; Basophils Absolute Auto 0 /uL (0-100); Basophils Percent Auto 0.4 % (0-2); Eosinophils Absolute Auto 200 /uL (0-450); Hemoglobin 11.9 g/dL (12.0-16.0); Lymphocytes Absolute Auto 1000 /uL (1100-4500); Lymphocytes Percent Auto 32.6 % (25-40); Mean Corpuscular Hemoglobin 36.1 PG (26-34); Mean Corpuscular Volume 100.1 fL (80-100); Monocytes Absolute Auto 500 /uL (0-900); Monocytes Percent Auto 15.2 % (3-14); Neutrophils Absolute Auto 1400 /uL (1500-7000); Neutrophils Percent Auto 45.8 % (50-75); Platelet Count 74 X10^3/uL (150-400); Red Cell Distribution Width 15.2 % (11.6-14.8); White Blood Cell Count 3.1 X10^3/uL (4.5-11.0)
[2024-07-08 13:18] LABS: Hemoglobin A1C% w Est Avg Glu 4.2 % (4.0-6.0)
[2024-07-08 13:35] LABS: Alanine Aminotransferase 44 IU/L (<35); Albumin Globulin Ratio 1.2 (1.0-2.8); Alkaline Phosphatase 127 U/L (38-126); Aspartate Aminotransferase 54 IU/L (14-36); BUN Creatinine Ratio 17.9 (6-22); Bilirubin Total 1.3 mg/dL (0.2-1.3); Blood Urea Nitrogen 12 mg/dL (7-17); Calcium 9.2 mg/dL (8.4-10.2); Carbon Dioxide 24 mmol/L (22-32); Chloride 100 mmol/L (98-107); Estimated Glomerular Filt Rate > 60 mL/min (>60); Globulin 3.3 g/dL (1.7-4.1); Glucose 99 mg/dL (70-99); HEMOLYSIS < 15 (0-50); Magnesium 1.7 mg/dL (1.6-2.3); Potassium 4.3 mmol/L (3.4-5.1); Sodium 132 mmol/L (137-145); Total Protein 7.3 g/dL (6.3-8.2)
== END ==
PROVIDERS: PCP Student in an Organized Health Care Education/Training Program; Referring Provider Student in an Organized Health Care Education/Training Program; Visit Provider Student in an Organized Health Care Education/Training Program
DX: R25.2 Cramp and spasm (principal); E11.9 Type 2 diabetes mellitus without complications
CPT/HCPCS: 36415; 80053; 83036; 83735; 85025

== ENCOUNTER 2024-09-17 12:28 | Day surgery (SDC) | payer OTHER, SELFPAY ==
[2024-09-12 13:14] VITALS: BMI 27.3
--- NOTE | 2024-09-17 | PATH_ITS ---
[facility] Accession Number: [id number] No. of containers..01 Tissue . 01 Material submitted: . perianal area - LEFT TRUPTI-ANAL MASS . 01 Diagnosis: LEFT PERIANAL, BIOPSY: Final diagnosis is pending an outside expert consultation, which will be reported in an addendum. MRV 09/29/2024 1804 Local . 01 Electronically signed: . Harjit Camp MD, Dermatopathologist NPI- [id number] . 01 Gross description: . Received in formalin with two identifiers and L perianal mass, are two tissue fragments. The first is an irregular fragment of skin, 1.9 x 1.4 x 0.6 cm. The margin is inked blue. The second fragment is quick to brown soft tissue with no skin identified, 0.3 x 0.5 x 0.3 cm, inked green. The specimen is submitted entirely as follows: . A1: Blue fragments end and green fragment. A2: Remaining blue fragment. ([id number]) /MRV 09/25/2024 1350 Local . 01 Pathologist provided ICD-10: R23.9 . 01 CPT . 049497 Specimen Comment: A courtesy copy of this report has been sent to [phone] Performed at: [address] [facility] [address], [place], [place] [id number] MD Bob Lawrence MD Phone: [phone]
[2024-09-17 13:31] VITALS: BMI 27.3
--- NOTE | 2024-09-17 13:43 | PM.PREOP ---
Pre-operative Note COVID-19 COVID-19 status: Not tested Interval Note History & Physical reviewed/Exam performed by Physician: Yes Changes to H&P: No ASA Class (for procedural sedation): III
[2024-09-17 14:25] VITALS: BP 111/69; PULSE 93; RESP 16; TEMP 36.8; O2SAT 100
[2024-09-17] MEDS: LACTATED RINGERS 1,000 ML 42 ML IV (14:37)
--- NOTE | 2024-09-17 15:57 | SUR.OPER ---
Prone on padded OR bed, ramesh-knifed, head in foam head support, gel chest rolls, gel pad under knees, pillow under lower legs, toes free of pressure, arms secured on padded arm boards at <90 degrees abduction. Safety belt at back.
--- NOTE | 2024-09-17 16:13 | P.OP_ITS ---
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 She was positioned in the prone ramesh-knife position. The perineum was prepped and draped in the usual fashion and a time-out was performed. A digital rectal exam was performed without well lubricated finger. The mass could be palpated in the left anterior perianal soft tissue and extended about 2 cm above the dentate line. A Hill-Santiago style retractor was inserted into the rectum and the lesion was visualized. The lesion spanned roughly 4 cm in the axial direction (parallel to the rectum) and roughly 1.5 cm transversely or along the circumference of the anus. It did extend above the dentate line and beyond the sphincter mechanism. The mass appeared to be curling in on itself at the edges. Two segments of the mass were excised sharply with a 15 blade scalpel and sent as a specimen. One segment involve the distal aspect of the lesion and another segment involve the proximal aspect. Additional Exparel was injected around the lesion. A Gelfoam roll was inserted into the anus. The patient was awakened and brought to recovery room. EBL: 10 mL Specimen: Perianal mass Jeramy LANDRY provided assistance with exposure, retraction and closure of incisions. Complications: none Post-operative Condition: stable Disposition: PACU
[2024-09-17] MEDS: BUPIVACAINE LIPOSOME 266 MG/20 ML VIAL INJ (16:19)
[2024-09-17 16:23] VITALS: BP 113/62; PULSE 81; RESP 12; TEMP 36.4; O2SAT 97
[2024-09-17 16:30] VITALS: BP 115/65; PULSE 79; RESP 13; TEMP 36.4; O2SAT 97
[2024-09-17] MEDS: BENZOCAINE/MENTHOL 1 LOZ PKT 1 EACH PO (16:36)
[2024-09-17] MEDS: MORPHINE 4 MG/ML INJ IV (16:36)
[2024-09-17] MEDS: ONDANSETRON 4 MG/2 ML INJ IV (16:36)
[2024-09-17 16:40] VITALS: BP 109/61; PULSE 81; RESP 18; TEMP 36.4; O2SAT 99
[2024-09-17 16:56] VITALS: BP 117/69; PULSE 71; RESP 16; TEMP 36.3; O2SAT 99
== END 2024-09-17 17:15 | disposition home or self-care (01) ==
PROVIDERS: PCP Student in an Organized Health Care Education/Training Program; Referring Provider Surgery; Visit Provider Surgery
PROC: (CPT 45100; principal; 2024-09-17 14:00)
DX: K62.89 Other specified diseases of anus and rectum (principal)
CPT/HCPCS: 45100; 82962; J0330; J0666; J2250; J2270; J2405; J2704; J3010

== ENCOUNTER → 2024-10-15 09:31 | Outpatient (CLI) | payer OTHER, SELFPAY ==
[2024-10-15 10:05] LABS: Add Manual Diff / Slide Review NO; Hematocrit 31.6 % (36-46); Hemoglobin 11.5 g/dL (12.0-16.0); Lymphocytes Absolute Auto 900 /uL (1100-4500); Mean Corpuscular HGB Conc 36.4 % (30-36); Mean Corpuscular Hemoglobin 36.2 PG (26-34); Mean Corpuscular Volume 99.4 fL (80-100); Platelet Count 58 X10^3/uL (150-400)
[2024-10-15 10:15] LABS: Anisocytosis 1+
== END ==
PROVIDERS: PCP Student in an Organized Health Care Education/Training Program; Referring Provider Surgery; Visit Provider Surgery
DX: K62.0 Anal polyp (principal); K62.1 Rectal polyp
CPT/HCPCS: 36415; 85025

== ENCOUNTER → 2025-02-02 13:34 | Outpatient (CLI) | payer OTHER, SELFPAY ==
[2025-02-02 14:25] LABS: Hematocrit 26.3 % (36-46); Hemoglobin 9.4 g/dL (12.0-16.0); Mean Corpuscular HGB Conc 36.0 % (30-36); Mean Corpuscular Hemoglobin 37.7 PG (26-34); Mean Corpuscular Volume 104.9 fL (80-100); Platelet Count 38 X10^3/uL (150-400)
[2025-02-02 14:35] LABS: Add Manual Diff / Slide Review YES
[2025-02-02 14:53] LABS: Anisocytosis 3+; Band Neutrophils Percent 2.0 % (3-7); Basophils Percent Manual 1.0 % (0-1); Eosinophils Percent Manual 3.0 % (2-4); Lymphocytes Percent Manual 20.0 % (25-45); Monocytes Percent Manual 12.0 % (2-11); Neutrophils Absolute Manual 960 /uL (3000-5900); Segmented Neutrophils Percent 62.0 % (38-70); Total Cells Counted 100
== END ==
PROVIDERS: PCP Student in an Organized Health Care Education/Training Program; Referring Provider Student in an Organized Health Care Education/Training Program; Visit Provider Internal Medicine Medical Oncology
DX: C21.0 Malignant neoplasm of anus, unspecified (principal); C21.1 Malignant neoplasm of anal canal; D62 Acute posthemorrhagic anemia; K62.5 Hemorrhage of anus and rectum
CPT/HCPCS: 36415; 85007; 85025